=== PATIENT | female | born 1970 | race Caucasian/White ===

== ENCOUNTER 2016-09-14 17:03 | Inpatient (IN) | payer MEDICARE, MEDICAID ==
[~2016-09-14] VITALS: Ht 175.3 cm; Wt 81.2 kg
[~2016-09-14 17:03] MED LIST: ACET-2267 PO; ACET-819 PO; ACET1000 IR; ACHD5005 PO; AMIT10TA6; AMIT10TA6 PO; AMIT25TA9; AMIT50TA3 PO; AMLO5TAB2 PO; AMOX-358 PO; ASCO500T20 PO; BACL10TA; BACL10TA PO; BACL20TA PO; CLOT45CR46 TOP; CLTR1C90 TP; FLUC100T6 PO; FOAM DRESSING TOP; HYDR-1231 PO; HYDR-3714 PO; HYDR-3730 PO; MAGN400O7 PO; MEDR150D4 IM; MENT3.5O TP; MENT71OI TP; METO-272 PO; METO-333 PO; METO25TA PO; METO25TA2 PO; MNTL10T; MNTL10T PO; MONT10TA24 PO; MTP50T PO; MULT-974 PO; NITR-33 PO; NYST30PO9 TOP; OMEG1CAP51 PO; ONDA4TAB11 PO; PANT40TA2 PO; PANT40TA3 PO; POLY17PO23 GT; POLY17PO6 PO; RANI25TA PO; RANI75TA30 PO; RT-ALBUINH INH; SENN1TAB6 PO; SULF1TAB35 PO; SULF1TAB7 PO; VENL150C PO; VENL150C98 PO; VITAMIN C PO; [UNRECOGNIZED DRUG - SUPPLY] TOP
--- NOTE | 2016-09-14 17:19 | ED General ---
General Stated Complaint: FEVER Source of Information: Patient, EMS Exam Limitations: No Limitations History of Present Illness Time Seen by Provider: 17:10 Initial Comments 1 week progressive worsening of tiredness and malaise on top of a history of MS. The patient says she was so weak she couldn't name lift her hand with food her mouth. EMS brought her in she has a caregiver who lives with her as well as home health set up her meds and cares for her wounds on her sacrum. She has a suprapubic catheter that has been putting out as brown drainage. Febrile 103.3 on arrival. She denies cough, nausea, vomiting, pain, diarrhea. She has a colostomy placed about 6 years ago that she states she doesn't remember last time the bag was replaced and hasn't been putting much out. The patient remarks she still has a period but is unaware of when her last period is. Rest of history by EMS no family accompanied her. Allergies and Home Medications Allergies Coded Allergies: interferon beta (Verified Allergy, Unknown, 07/25/08) naproxen (Verified Allergy, Unknown, 07/25/08) Home Medications Acetic Acid 1,000 Ml Irrig.soln, 0 ML IR BID PRN for IRRIGATION, #30 Prescribed by: KEVIN MORE on 11/14/15 1534 Amitriptyline HCl 50 Mg Tablet, 50 MG PO HS, (Reported) Baclofen 20 Mg Tablet, 20 MG PO QID, (Reported) Fluconazole 100 Mg Tablet, 100 MG PO DAILY for 7 Days Prescribed by: EMELI CORLEY on 11/14/15 0743 Metoprolol Tartrate 25 Mg Tablet, 50 MG PO DAILY, (Reported) TAKES 2 (25MG) TABLETS Montelukast Sodium 10 Mg Tablet, 10 MG PO DAILY, (Reported) Nystatin 60 Gm Powder, TOP BID, (Reported) Pantoprazole Sodium 40 Mg Tablet.dr, 40 MG PO DAILY, (Reported) Sennosides/Docusate Sodium 1 Each Tablet, 1 TAB PO DAILY PRN for CONSTIPATION, ( Reported) Sulfamethoxazole/Trimethoprim 1 Each Tablet, 1 EACH PO BID, #14 Prescribed by: EMELI CORLEY on 11/14/15 0743 Venlafaxine HCl 150 Mg Cap.er.24h, 150 MG PO DAILY, (Reported) Constitutional: see HPI, No chills, No fever, malaise, weakness EENTM: No ear discharge, No ear pain, No eye pain, No hoarseness, No mouth pain , No mouth swelling, No nose congestion, No nose pain, No throat pain Respiratory: No cough, No phlegm, No short of breath, No wheezing Cardiovascular: No chest pain, No edema, No syncope Gastrointestinal: No abdominal pain, constipation, No diarrhea, loss of appetite, No nausea, No vomiting Genitourinary: No dysuria (Suprapubic catheter with brown sludge in the catheter line) : No Musculoskeletal: No joint swelling Psychiatric/Neurological: Denies Anxiety, Denies Depressed, Denies Headache Past [id number] Hx Immunizations Up To Date Tetanus Booster (TDap): Less than 5yrs Date of Pneumonia Vaccine: Jun 08, 2015 Date of Influenza Vaccine: Mar 08, 2013 Surgeries HX Surgeries: Yes (teeth, suprapubic cath, COLOSTOMY) Respiratory Hx Respiratory Disorders: Yes Respiratory Disorders: Asthma Cardiovascular Hx Cardiac Disorders: Yes Cardiac Disorders: Hypertension Neurological Hx Neurological Disorders: Yes (secondary progressive) Neurological Disorders: Multiple Sclerosis Reproductive System Hx Reproductive Disorders: No Sexually Transmitted Disease: No HIV/AIDS: No Female Reproductive Disorders: Denies Genitourinary Hx Genitourinary Disorders: Yes (suprapubic cathether) Genitourinary Disorders: Bladder Infection Gastrointestinal Hx Gastrointestinal Disorders: Yes (COLOSTOMY) Musculoskeletal Hx Musculoskeletal Disorders: Yes (DECREASED MOVEMENT DUE TO MS) Endocrine Hx Endocrine Disorders: No HEENT HX ENT Disorders: Yes (GLASSES) Hearing Impairment: Denies Cancer Hx Cancer: No Psychosocial Hx Psychiatric Problems: Yes Behavioral Health Disorders: Depression Integumentary HX Skin/Integumentary Disorder: No Blood Transfusions Hx Blood Disorders: No Adverse Reaction to a Blood Tr: No Family Medical History Significant Family History: Cancer Family Medial History: Cancer 03 MOTHER (breast ca) (breast--grandma of breast cancer) Physical Exam-Suspected Sepsis Physical Exam Vital Signs Vital Sign - Last 12Hours 09/14/16 17:08 Temp 103.3 Pulse 125 Resp 20 B/P (MAP) 143/87 Pulse Ox 95 O2 Delivery Room Air Capillary Refill : General Appearance: Moderate Distress, Obese (estimating 100-120Kg) Eyes: Bilateral Eye EOMI, Bilateral Eye Normal Inspection, Bilateral Eye PERRL HEENT: PERRL/EOMI, TMs Normal, Normal ENT Inspection, Pharynx Normal Neck: Full Range of Motion, Normal Inspection, Non Tender, Supple Respiratory: Chest Non Tender, Lungs Clear, Normal Breath Sounds, No Accessory Muscle Use, No Respiratory Distress Cardiovascular: Regular Rate, Rhythm, No Edema, No JVD, Normal Peripheral Pulses Gastrointestinal: Non Tender, Soft, Abnormal Bowel Sounds (hypoactive), Distended, Other (ostomy stoma is retracted with a clean dry colostomy bag in place without dating) Back: No Vertebral Tenderness, Other (large tunneling unstageable ulcer over sacrum with ABD pad and yellow green purulence. ) Extremity: Normal Capillary Refill, Non Tender, No Calf Tenderness, No Pedal Edema Neurologic/Psychiatric: Alert, Oriented x3, No Motor/Sensory Deficits Skin: normal color, warm/dry, ulcerations (Sacral) Lymphatic: No Adenopathy Focused Exam Lactic Acid Level Laboratory Tests Test 09/14/16 17:10 09/14/16 19:11 Lactic Acid Level 2.68 MMOL/L (0.50-2.00) *H Progress/Results/Core Measures Suspected Sepsis Infection Criteria Present: Suspected New Infection New/Unexplained Altered Menta: Yes Sepsis Diagnosis: (1) Urinary tract infection Qualifiers: Qualified Codes: T83.510A - Infection and inflammatory reaction due to cystostomy catheter, initial encounter; N39.0 - Urinary tract infection, site not specified SIRS Temperature: Pulse: Respiratory Rate: Laboratory Tests 09/14/16 17:10: White Blood Count 18.8H Blood Pressure / Mean: Laboratory Tests 09/14/16 17:10: Creatinine 0.69, INR Comment 1.0, Platelet Count 388, Total Bilirubin 0.5 Results/Orders Lab Results Laboratory Tests Test 09/14/16 17:10 09/14/16 17:36 09/14/16 19:11 Range/Units White Blood Count 18.8 H 4.3-11.0 10^3/uL Red Blood Count 4.66 4.35-5.85 10^6/uL Hemoglobin 11.2 L 11.5-16.0 G/DL Hematocrit 36 35-52 % Mean Corpuscular Volume 77 L 80-99 FL Mean Corpuscular Hemoglobin 24 L 25-34 PG Mean Corpuscular Hemoglobin Concent 31 L 32-36 G/DL Red Cell Distribution Width 17.7 H 10.0-14.5 % Platelet Count 388 130-400 10^3/uL Mean Platelet Volume 9.7 7.4-10.4 FL Neutrophils (%) (Auto) 94 H 42-75 % Lymphocytes (%) (Auto) 4 L 12-44 % Monocytes (%) (Auto) 3 0-12 % Eosinophils (%) (Auto) 0 0-10 % Basophils (%) (Auto) 0 0-10 % Neutrophils # (Auto) 17.6 H 1.8-7.8 X 10^3 Lymphocytes # (Auto) 0.7 L 1.0-4.0 X 10^3 Monocytes # (Auto) 0.5 0.0-1.0 X 10^3 Eosinophils # (Auto) 0.1 0.0-0.3 10^3/uL Basophils # (Auto) 0.0 0.0-0.1 10^3/uL Neutrophils % (Manual) 86 % Lymphocytes % (Manual) 7 % Monocytes % (Manual) 1 % Eosinophils % (Manual) 1 % Basophils % (Manual) 1 % Band Neutrophils 4 % Anisocytosis SLIGHT Prothrombin Time 13.2 12.2-14.7 SEC INR Comment 1.0 0.8-1.4 Activated Partial Thromboplast Time 26 24-35 SEC Sodium Level 136 135-145 MMOL/L Potassium Level 4.3 3.6-5.0 MMOL/L Chloride Level 105 98-107 MMOL/L Carbon Dioxide Level 18 L 21-32 MMOL/L Anion Gap 13 5-14 MMOL/L Blood Urea Nitrogen 14 7-18 MG/DL Creatinine 0.69 0.60-1.30 MG/DL Estimat Glomerular Filtration Rate > 60 BUN/Creatinine Ratio 20 Glucose Level 114 H 70-105 MG/DL Lactic Acid Level 2.68 *H 0.50-2.00 MMOL/L Calcium Level 8.7 8.5-10.1 MG/DL Total Bilirubin 0.5 0.1-1.0 MG/DL Aspartate Amino Transf (AST/SGOT) 13 5-34 U/L Alanine Aminotransferase (ALT/SGPT) 10 0-55 U/L Alkaline Phosphatase 89 40-136 U/L Total Protein 7.1 6.4-8.2 G/DL Albumin 3.7 3.2-4.5 G/DL Urine Color YELLOW Urine Clarity SLIGHTLY CLOUDY Urine pH 8 5-9 Urine Specific Reading 1.015 L 1.016-1.022 Urine Protein 2+ H NEGATIVE Urine Glucose (UA) NEGATIVE NEGATIVE Urine Ketones 1+ H NEGATIVE Urine Nitrite POSITIVE H NEGATIVE Urine Bilirubin NEGATIVE NEGATIVE Urine Urobilinogen NORMAL NORMAL MG/DL Urine Leukocyte Esterase 3+ H NEGATIVE Urine RBC (Auto) 4+ H NEGATIVE Urine RBC 5-10 H /HPF Urine WBC 25-50 H /HPF Urine Crystals NONE /LPF Urine Bacteria LARGE H /HPF Urine Casts NONE /LPF Urine Mucus NEGATIVE /LPF Urine Culture Indicated YES Micro Results Microbiology 09/14/16 Influenza Types A,B Antigen (RENEA) - Final, Complete My Orders Orders - DIANE RAMIREZ Cbc With Automated Diff (09/14/16 17:20) Comprehensive Metabolic Panel (09/14/16 17:20) Lactic Acid Analyzer (09/14/16 17:20) Blood Culture (09/14/16 17:20) Sputum Culture (09/14/16 17:20) Ua Culture If Indicated (09/14/16 17:20) Protime With Inr (09/14/16 17:20) Partial Thromboplastin Time (09/14/16 17:20) Chest 1 View, Ap/Pa Only (09/14/16 17:20) O2 (09/14/16 17:20) Saline Lock/Iv-Start (09/14/16 17:20) Saline Lock/Iv-Start (09/14/16 17:20) Ns Iv 1000 Ml (Sodium Chloride 0.9%) (09/14/16 17:30) Piperacillin Sodium/Tazobactam (Zosyn Vi (09/14/16 17:30) Vital Signs Adult Sepsis Patie Q1HR (09/14/16 17:20) Vancomycin Injection (Vancomycin Injecti (09/14/16 17:30) Remove Rings In Anticipation O (09/14/16 17:20) Influenza A And B Antigens (09/14/16 17:20) Manual Differential (09/14/16 17:10) Ct Abdomen/Pelvis W (09/14/16 17:58) Urine Culture (09/14/16 17:36) Iohexol Injection (Omnipaque 350 Mg/Ml 1 (09/14/16 18:15) Ns (Ivpb) (Sodium Chloride 0.9% Ivpb Bag (09/14/16 18:15) Medications Given in ED Current Medications Medications Dose Ordered Sig/Matthew Route Start Time Stop Time Status Last Admin Dose Admin Iohexol 100 ml ONCE ONCE IV 09/14/16 18:15 09/14/16 18:16 DC 09/14/16 18:35 100 ML Piperacillin Sod/ Tazobactam Sod 4.5 gm/Sodium Chloride 100 ml @ 200 mls/hr ONCE ONCE IV 09/14/16 17:30 09/14/16 17:59 DC 09/14/16 17:52 200 MLS/HR Sodium Chloride 100 ml ONCE ONCE IV 09/14/16 18:15 09/14/16 18:16 DC 09/14/16 18:35 80 ML Sodium Chloride 2,500 ml @ 1,250 mls/hr PRN PRN IV 09/14/16 17:30 09/14/16 17:51 1,250 MLS/HR Vancomycin HCl 1000 mg/Sodium Chloride 250 ml @ 250 mls/hr ONCE ONCE IV 09/14/16 17:30 09/14/16 18:29 DC 09/14/16 17:52 250 MLS/HR Vital Signs/I&O Vital Sign - Last 12Hours 09/14/16 09/14/16 09/14/16 17:08 17:30 18:01 Temp 103.3 Pulse 125 120 Resp 20 20 B/P (MAP) 143/87 135/99 Pulse Ox 95 95 98 O2 Delivery Room Air Room Air Room Air Capillary Refill : Progress Note : Time: 17:55 Progress Note Patient is acutely ill and in sepsis with normal blood pressure at this time. Severe sepsis with lactate 2.68. We'll give fluids, IV antibiotics, cultures of urine and blood obtained. Appropriate x-rays and get a CT scan as I'm concerned with the retracted ostomy and clean colostomy bag that she does not know when was replaced last she may have a functional bowel obstruction. Diagnostic Imaging Diagonstic Imaging: Xray Plain Films/CT/US/NM/MRI: chest Comments Poor inspiratory effort but no acute cardiopulmonary processes are noted. No osseous abnormalities. She is compared to the 2015 chest x-ray 1 view stable without new changes. Reviewed: Reviewed by Me Diagonstic Imaging: CT Plain Films/CT/US/NM/MRI: abdomen Comments [place] [place] NAME: MODE [facility] REC#: [id number] PT STATUS: REG ER : 1970 PHYSICIAN: DIANE RAMIREZ MD ADMIT DATE: 09/14/16/ER Draft Date of Exam:09/14/16 CT ABDOMEN/PELVIS W INDICATION: Sepsis and fever CT of the abdomen and pelvis obtained with IV contrast bolus and compared to 09/19/15. Visualized portions of the lung bases show some mild dependent atelectatic changes. There is no pleural fluid. There is no free intraperitoneal air. The liver shows no focal lesion. Gallbladder is unremarkable. The spleen is not enlarged and showed no focal lesion. The adrenals and pancreas and kidneys appear normal. There is no retroperitoneal mass or adenopathy. There is no ascites. Visualized bowel loops show no overt obstruction or bowel wall thickening. There is moderate stool in the colon. There are diffuse atrophic changes of the abdominal and pelvic musculature. There is left lower quadrant ostomy with small parastomal hernia without obstruction. There is a suprapubic catheter in place. IMPRESSION: Chronic findings as above with no overt inflammatory process or abnormal fluid collection or bowel obstruction. There is moderate stool in the colon. Dictated on workstation # [id number] Dict: 09/14/16 1850 Trans: 09/14/16 1909 MARI [id number] Interpreted by: BILLY MARTINEZ MD Electronically signed by: Reviewed: Reviewed by Me Departure Communication Time/Spoke to Admitting Phy: 19:25 Communication Discussed this fierce septic patient with normal blood pressure, fever and likely urosepsis yet has a large unexplored tunneling wound on the sacrum as well as the retracted ostomy that was not remarkable on the CT scan. Dr. Bruce Simon agreed for inpatient placement on the floor as the patient was stable status post fluids and antibiotics. We'll get another lactate continue antibiotics and fluids and allow her to eat as well as check labs in the morning. She has pain and nausea meds when necessary. Impression Impression: Primary Impression: Severe sepsis Additional Impressions: UTI (urinary tract infection) due to urinary indwelling catheter Qualified Codes: T83.510A - Infection and inflammatory reaction due to cystostomy catheter, initial encounter; N39.0 - Urinary tract infection, site not specified Sacral wound Qualified Codes: S31.000A - Unspecified open wound of lower back and pelvis without penetration into retroperitoneum, initial encounter Disposition: ADMITTED INPATIENT Condition: Stable Decision to Admit Reason: Admit from ER (General) Decision to Admit/Date: Sep 14, 2016 Time/Decision to Admit Time: 19:25 Departure-Patient Inst. Referrals: EMELI CORLEY DO (PCP/Family) Primary Care Physician Copy Copies To 1: EMELI CORLEY TITUS J Sep 14, 2016 17:19
[2016-09-14 17:29] LABS: BASOPHILS % (AUTO) 0 % (0-10); EOSINOPHILS # (AUTO) 0.1 10^3/uL (0.0-0.3); EOSINOPHILS % (AUTO) 0 % (0-10); LYMPHOCYTES # (AUTO) 0.7 X 10^3 (1.0-4.0); LYMPHOCYTES % (AUTO) 4 % (12-44); MEAN CORPUSCULAR HEMOGLOBIN 24 PG (25-34); MEAN CORPUSCULAR HGB CONC 31 G/DL (32-36); MEAN CORPUSCULAR VOLUME 77 FL (80-99); MEAN PLATELET VOLUME 9.7 FL (7.4-10.4); MONOCYTES # (AUTO) 0.5 X 10^3 (0.0-1.0); MONOCYTES % (AUTO) 3 % (0-12); NEUTROPHILS # (AUTO) 17.6 X 10^3 (1.8-7.8); NEUTROPHILS % (AUTO) 94 % (42-75); PLATELET COUNT 388 10^3/uL (130-400); RED BLOOD COUNT 4.66 10^6/uL (4.35-5.85); RED CELL DISTRIBUTION WIDTH 17.7 % (10.0-14.5); WHITE BLOOD COUNT 18.8 10^3/uL (4.3-11.0)
[2016-09-14] MEDS ORDERED: PIPERACILLIN SODIUM/TAZOBACTAM 4.5 GM in NS (IVPB) 100 ML IV ONE (17:30)
[2016-09-14] MEDS ORDERED: NS IV 1000 ML 2,500 ML IV PRN (17:30)
[2016-09-14] MEDS ORDERED: VANCOMYCIN INJECTION 1,000 MG in NS (IVPB) 250 ML IV ONE (17:30)
[2016-09-14 17:32] LABS: PROTHROMBIN TIME PATIENT 13.2 SEC (12.2-14.7)
[2016-09-14 17:41] LABS: ANISOCYTOSIS SLIGHT; BAND NEUTROPHILS 4 %; BASOPHILS % (MANUAL) 1 %; EOSINOPHILS % (MANUAL) 1 %; LYMPHOCYTES % (MANUAL) 7 %; NEUTROPHILS % (MANUAL) 86 %
[2016-09-14 17:43] LABS: ALANINE AMINOTRANSFERASE 10 U/L (0-55); ALBUMIN 3.7 G/DL (3.2-4.5); ANION GAP 13 MMOL/L (5-14); ASPARTATE AMINO TRANSFERASE 13 U/L (5-34); BILIRUBIN,TOTAL 0.5 MG/DL (0.1-1.0); BLOOD UREA NITROGEN 14 MG/DL (7-18); BUN/CREATININE RATIO 20; CALCIUM 8.7 MG/DL (8.5-10.1); CARBON DIOXIDE 18 MMOL/L (21-32); CHLORIDE 105 MMOL/L (98-107); CREATININE SERUM 0.69 MG/DL (0.60-1.30); GFR ESTIMATED > 60; GLUCOSE 114 MG/DL (70-105); POTASSIUM 4.3 MMOL/L (3.6-5.0); SODIUM 136 MMOL/L (135-145); TOTAL PROTEIN 7.1 G/DL (6.4-8.2)
[2016-09-14 17:44] LABS: BILIRUBIN,URINE NEGATIVE (NEGATIVE); KETONES,URINE 1+ (NEGATIVE); LEUKOCYTE ESTERASE ,URINE 3+ (NEGATIVE); NITRITE,URINE POSITIVE (NEGATIVE); PH,URINE 8 (5-9); PROTEIN,URINE 2+ (NEGATIVE); UROBILINOGEN,URINE NORMAL (NORMAL)
[2016-09-14 17:55] LABS: WBC,URINE 25-50 /HPF
[2016-09-14 18:01] VITALS: BP 135/99
--- NOTE | 2016-09-14 18:13 | Diagnostic Imaging Report ---
INDICATION: Fever and sepsis. EXAM: Frontal chest obtained at 5:50 hours p.m. EXAM: The heart is normal in size. The aorta is tortuous. The lungs are clear. There is no pneumothorax or pleural fluid. IMPRESSION: Tortuous and/or ectatic aorta. Poor inspiration but no focal infiltrate or pleural fluid. Dictated by: Dictated on workstation # [id number]
[2016-09-14] MEDS ORDERED: IOHEXOL 350 MG/ML 100 ML (OMNIPAQUE 350) VIAL IV ONE (18:15)
[2016-09-14] MEDS ORDERED: NS 100 ML (IVPB) BAG IV ONE (18:15)
--- NOTE | 2016-09-14 19:09 | Diagnostic Imaging Report ---
INDICATION: Sepsis and fever CT of the abdomen and pelvis obtained with IV contrast bolus and compared to 09/19/15. Visualized portions of the lung bases show some mild dependent atelectatic changes. There is no pleural fluid. There is no free intraperitoneal air. The liver shows no focal lesion. Gallbladder is unremarkable. The spleen is not enlarged and showed no focal lesion. The adrenals and pancreas and kidneys appear normal. There is no retroperitoneal mass or adenopathy. There is no ascites. Visualized bowel loops show no overt obstruction or bowel wall thickening. There is moderate stool in the colon. There are diffuse atrophic changes of the abdominal and pelvic musculature. There is left lower quadrant ostomy with small parastomal hernia without obstruction. There is a suprapubic catheter in place. IMPRESSION: Chronic findings as above with no overt inflammatory process or abnormal fluid collection or bowel obstruction. There is moderate stool in the colon. Dictated by: Dictated on workstation # [id number]
[2016-09-14] MEDS ORDERED: NS IV 1000 ML 1,000 ML IV ONE (19:41)
[2016-09-14 20:30] VITALS: BP 119/60
[2016-09-14] MEDS ORDERED: ACETAMINOPHEN 325 MG TABLET/CAPLET (TYLENOL) ONE (20:32)
[2016-09-14] MEDS: ACETAMINOPHEN 325 MG TABLET/CAPLET (TYLENOL) PO PRN (20:41)
[2016-09-14] MEDS ORDERED: VANCOMYCIN 1 GM/NS 250 ML IVPB IV ONE ×2 (21:00)
[2016-09-14] MEDS ORDERED: fentaNYL INJECTION 100 MCG/2 ML AMP IV PRN (21:00)
[2016-09-14] MEDS ORDERED: ONDANSETRON 4 MG/2 ML (SDV) Z0FRAN IV PRN (21:00)
[2016-09-14] MEDS: NS IV 1000 ML 1,000 ML IV SCH (21:28)
--- NOTE | 2016-09-14 21:34 | History & Physical ---
History of Present Illness History of Present Illness Reason for visit/HPI 45 yo F admitted for severe sepsis secondary to UTI with indwelling suprapubic catheter- Pt has history of paraplegia from multiple sclerosis, colostomy and sacral ulcer that is over 1 year old. She was admitted last November 2015 for MRSA UTI, candidal infection. Patient reports yesterday she started not feeling very well. She reports she was unable to grab her cup to take a drink of water so all she could do was there and looked at it. She had upper extremity weakness preventing her from moving her arms. She does have home health that comes in and takes care of her colostomy bag as well as her sacral ulcer. Patient was brought to via [facility], [place] for further evaluation. Her home health nurse noted she had a fever today and requested further evaluation. In the emergency department patient's lactic acid was greater than 2 she was bolused IV fluids and started on antibiotics with vancomycin and Zosyn. Lactic acid was checked 2 hours later that was noted to be 3. She was bolused again with IV fluids will continue running IV fluids and 100 ml/hour; encourage by mouth hydration. After IV fluids patient reports she feels a little bit better , strength has increased a little bit. patient is bedbound as noted above due to paraplegia. Patient was transferred to the fourth floor for further evaluation and treatment. Date of Admission Sep 14, 2016 at 19:35 I consulted on this patient on 09/14/16 21:27 Attending Physician Bruce Gomez MD Admitting Physician Emeli Corley DO Consult Dr. Milian Allergies and Home Medications Allergies Coded Allergies: interferon beta (Verified Allergy, Unknown, 07/25/08) naproxen (Verified Allergy, Unknown, 07/25/08) Home Medications Acetic Acid 1,000 Ml Irrig.soln, 0 ML IR BID PRN for IRRIGATION, #30 Prescribed by: KEVIN MORE on 11/14/15 1534 Amitriptyline HCl 50 Mg Tablet, 50 MG PO HS, (Reported) Baclofen 20 Mg Tablet, 20 MG PO QID, (Reported) Fluconazole 100 Mg Tablet, 100 MG PO DAILY for 7 Days Prescribed by: EMELI CORLEY on 11/14/15 0753 Metoprolol Tartrate 25 Mg Tablet, 50 MG PO DAILY, (Reported) TAKES 2 (25MG) TABLETS Montelukast Sodium 10 Mg Tablet, 10 MG PO DAILY, (Reported) Nystatin 60 Gm Powder, TOP BID, (Reported) Pantoprazole Sodium 40 Mg Tablet.dr, 40 MG PO DAILY, (Reported) Sennosides/Docusate Sodium 1 Each Tablet, 1 TAB PO DAILY PRN for CONSTIPATION, ( Reported) Sulfamethoxazole/Trimethoprim 1 Each Tablet, 1 EACH PO BID, #14 Prescribed by: EMELI CORLYE on 11/14/15 0743 Venlafaxine HCl 150 Mg Cap.er.24h, 150 MG PO DAILY, (Reported) Past [id number] Hx Patient Social History Alcohol Use: Occasionally Uses Recreational Drug Use: No Smoking Status: Former Smoker Type Used: Cigarettes 2nd Hand Smoke Exposure: Yes Recent Foreign Travel: No Contact w/other who traveled: No Recent Hopitalizations: Yes Recent Infectious Disease Expo: No Immunizations Up To Date Tetanus Booster (TDap): Less than 5yrs Date of Pneumonia Vaccine: Jun 08, 2015 Date of Influenza Vaccine: Mar 08, 2013 Surgeries HX Surgeries: Yes (teeth, suprapubic cath, COLOSTOMY) Respiratory Hx Respiratory Disorders: Yes Cardiovascular Hx Cardiovascular Disorders: Yes Cardiac Disorders: Hypertension Neurological Hx Neurological Disorders: Yes (secondary progressive) Neurological Disorders: Multiple Sclerosis Reproductive System Hx Reproductive Disorders: No Sexually Transmitted Disease: No HIV/AIDS: No Female Reproductive Disorders: Denies Genitourinary Hx Genitourinary Disorders: Yes (suprapubic cathether) Genitourinary Disorders: Bladder Infection Gastrointestinal Hx Gastrointestinal Disorders: Yes (COLOSTOMY) Musculoskeletal Hx Musculoskeletal Disorders: Yes (DECREASED MOVEMENT DUE TO MS) Endocrine Hx Endocrine Disorders: No HEENT HX ENT Disorders: Yes (GLASSES) Hearing Impairment: Denies Cancer Hx Cancer: No Psychosocial Hx Psychiatric Problems: Yes Behavioral Health Disorders: Depression Integumentary HX Skin/Integumentary Disorder: No Blood Transfusions Hx Blood Disorders: No Adverse Reaction to a Blood Tr: No Family Medical History Significant Family History: Cancer Family Hx: Cancer 03 MOTHER (breast ca) (breast--grandma of breast cancer) Review of Systems Review of Systems General: No Chills, No Night Sweats, Fatigue, Malaise HEENT: No Head Aches, No Visual Changes, No Eye Pain Pulmonary: No Dyspnea, No Cough Cardiovascular: No: Chest Pain, Orthopnea, Palpitations Gastrointestinal: Abdominal Pain, No: Nausea, Vomiting Genitourinary: No Dysuria, No Frequency Musculoskeletal: No: arm pain, back pain, foot pain, hand pain, leg pain, neck pain, shoulder pain Neurological: Weakness, No: Confusion, Seizures Physical Exam Vital Signs Vital Sign - Last 12Hours 09/14/16 17:08 Temp 103.3 Pulse 125 Resp 20 B/P (MAP) 143/87 Pulse Ox 95 O2 Delivery Room Air Capillary Refill : Less Than 3 Seconds General Appearance: No Apparent Distress, WD/WN Eyes: Bilateral Eye Normal Inspection HEENT: PERRL/EOMI Neck: Non Tender, Supple Respiratory: Chest Non Tender, Lungs Clear, Normal Breath Sounds, No Accessory Muscle Use, No Respiratory Distress Cardiovascular: Regular Rate, Rhythm, Tachycardia Gastrointestinal: Normal Bowel Sounds, Non Tender, Soft, Other (colostomy bag in place) Rectal: Deferred Back: No Vertebral Tenderness Extremity: Non Tender, Pedal Edema (trace), Other (unable to move her legs- a little bit of toe wiggling) Neurologic/Psychiatric: Alert, Oriented x3, Normal Mood/Affect Skin: Warm/Dry, Other (sacral ulcer) Assessment/Plan Assessment/Plan Assessment/Plan 45 yo F admitted 09/14/16 Severe sepsis due to indwelling suprapubic catheter- -h/o MRSA UTI November 2015- -continue vancomycin, zosyn -urine culture pending, blood culture sacral decubitus ulcer- it was stage 10 November 2015- home health has been caring for it- She saw Dr. Milian November 2015- Wound care consult placed paraplegia from Multiple Sclerosis- poses a problem for decubitus ulcers. obesity- encourage healthy diet. h/o asthma- on room air, stable htn- monitor blood pressure- will not treat agressively at this time due to above sepsis depression- monitor mood DVT ppx- scds, lovenox Dispo: rechecking lactic acid at 2230, continue IVF- monitor BMP- as kidneys will be taxed with CT w/ contrast, vancomycin, sepsis, lovenox. Dr. Corley to resume care in AM. Problems: (1) Urinary tract infection Qualifiers: Qualified Codes: T83.510A - Infection and inflammatory reaction due to cystostomy catheter, initial encounter; N39.0 - Urinary tract infection, site not specified BRUCE GOMEZ MD Sep 14, 2016 21:34
[2016-09-14 23:32] VITALS: BP 122/72
[2016-09-14] MEDS: ENOXAPARIN 40 MG/0.4 ML (LOVENOX) SYR SC SCH (23:39)
[2016-09-15] MEDS: PIPERACILLIN/TAZOBACTAM 4.5 GM/NS100 ML IVPB IV SCH ×6 (03:18→17:46)
[2016-09-15 03:21] VITALS: BP 96/53
[2016-09-15 05:34] LABS: BASOPHILS % (AUTO) 0 % (0-10); EOSINOPHILS % (AUTO) 0 % (0-10); LYMPHOCYTES # (AUTO) 0.9 X 10^3 (1.0-4.0); LYMPHOCYTES % (AUTO) 7 % (12-44); MEAN CORPUSCULAR HEMOGLOBIN 24 PG (25-34); MEAN CORPUSCULAR HGB CONC 32 G/DL (32-36); MEAN CORPUSCULAR VOLUME 77 FL (80-99); MEAN PLATELET VOLUME 9.7 FL (7.4-10.4); MONOCYTES # (AUTO) 0.2 X 10^3 (0.0-1.0); MONOCYTES % (AUTO) 2 % (0-12); NEUTROPHILS # (AUTO) 12.5 X 10^3 (1.8-7.8); NEUTROPHILS % (AUTO) 91 % (42-75); PLATELET COUNT 324 10^3/uL (130-400); RED BLOOD COUNT 3.79 10^6/uL (4.35-5.85); RED CELL DISTRIBUTION WIDTH 17.7 % (10.0-14.5); WHITE BLOOD COUNT 13.7 10^3/uL (4.3-11.0)
[2016-09-15 05:57] LABS: ALANINE AMINOTRANSFERASE 10 U/L (0-55); ALBUMIN 2.8 G/DL (3.2-4.5); ANION GAP 8 MMOL/L (5-14); ASPARTATE AMINO TRANSFERASE 15 U/L (5-34); BILIRUBIN,TOTAL 0.7 MG/DL (0.1-1.0); BLOOD UREA NITROGEN 10 MG/DL (7-18); BUN/CREATININE RATIO 17; CALCIUM 7.7 MG/DL (8.5-10.1); CARBON DIOXIDE 20 MMOL/L (21-32); CHLORIDE 109 MMOL/L (98-107); CREATININE SERUM 0.58 MG/DL (0.60-1.30); GFR ESTIMATED > 60; GLUCOSE 112 MG/DL (70-105); POTASSIUM 3.3 MMOL/L (3.6-5.0); SODIUM 137 MMOL/L (135-145); TOTAL PROTEIN 5.4 G/DL (6.4-8.2)
[2016-09-15 07:37] VITALS: BP 95/61
[2016-09-15] MEDS ORDERED: ACETIC ACID 0.25% IR PRN (08:15)
[2016-09-15] MEDS ORDERED: ENOXAPARIN 40 MG/0.4 ML (LOVENOX) SYR SC SCH ×2 (08:15)
--- NOTE | 2016-09-15 08:16 | Progress Note (SOAP) ---
Subjective Subjective/Events-last exam patient feels 40 percent better today. Patient feels stronger. Sepsis. infection. Suprapubic. Sacral ulcer. White blood cell count from 18,800-13,700. Potassium 3.3. Urine culture preliminary enterococcus and gram-negative alexander. Patient afebrile today Objective Exam Vital Signs Date Time Temp Pulse Resp B/P (MAP) Pulse Ox O2 Delivery O2 Flow Rate FiO2 09/15/16 07:37 97.8 102 18 95/61 96 Room Air 09/15/16 03:21 99.2 119 20 96/53 95 Room Air 09/14/16 23:32 99.7 130 24 122/72 94 Room Air 09/14/16 21:40 99.7 09/14/16 21:00 Room Air 09/14/16 20:41 101.5 09/14/16 20:30 101.5 122 24 119/60 99 Room Air 09/14/16 20:10 101.7 122 18 98 09/14/16 18:01 120 20 135/99 98 Room Air 09/14/16 17:30 95 Room Air 09/14/16 17:08 103.3 125 20 143/87 95 Room Air I & O 09/15/16 07:00 Intake Total 4400 ml Output Total 625 ml Balance 3775 ml Capillary Refill : Less Than 3 Seconds General Appearance: No Apparent Distress, WD/WN HEENT: Normal ENT Inspection Neck: Full Range of Motion, Normal Inspection Respiratory: Chest Non Tender, Lungs Clear, No Accessory Muscle Use, No Respiratory Distress Cardiovascular: Regular Rate, Rhythm, No Murmur Gastrointestinal: non tender, soft, other (suprapubic) Results Lab Laboratory Tests 09/14/16 17:10 09/15/16 05:18 Laboratory Tests 09/14/16 17:10: White Blood Count 18.8H, Red Blood Count 4.66, Hemoglobin 11.2L, Hematocrit 36, Mean Corpuscular Volume 77L, Mean Corpuscular Hemoglobin 24L, Mean Corpuscular Hemoglobin Concent 31L, Red Cell Distribution Width 17.7H, Platelet Count 388, Mean Platelet Volume 9.7, Neutrophils (%) (Auto) 94H, Lymphocytes (%) (Auto) 4L , Monocytes (%) (Auto) 3, Eosinophils (%) (Auto) 0, Basophils (%) (Auto) 0, Neutrophils # (Auto) 17.6H, Lymphocytes # (Auto) 0.7L, Monocytes # (Auto) 0.5, Eosinophils # (Auto) 0.1, Basophils # (Auto) 0.0, Neutrophils % (Manual) 86, Lymphocytes % (Manual) 7, Monocytes % (Manual) 1, Eosinophils % (Manual) 1, Basophils % (Manual) 1, Band Neutrophils 4, Anisocytosis SLIGHT, Prothrombin Time 13.2, INR Comment 1.0, Activated Partial Thromboplast Time 26, Sodium Level 136, Potassium Level 4.3, Chloride Level 105, Carbon Dioxide Level 18L, Anion Gap 13, Blood Urea Nitrogen 14, Creatinine 0.69, Estimat Glomerular Filtration Rate > 60, BUN/Creatinine Ratio 20, Glucose Level 114H, Lactic Acid Level 2.68*H, Calcium Level 8.7, Total Bilirubin 0.5, Aspartate Amino Transf ( AST/SGOT) 13, Alanine Aminotransferase (ALT/SGPT) 10, Alkaline Phosphatase 89, Total Protein 7.1, Albumin 3.7 09/14/16 17:36: Urine Color YELLOW, Urine Clarity SLIGHTLY CLOUDY, Urine pH 8, Urine Specific [place] 1.015L, Urine Protein 2+H, Urine Glucose (UA) NEGATIVE, Urine Ketones 1+ H, Urine Nitrite POSITIVEH, Urine Bilirubin NEGATIVE, Urine Urobilinogen NORMAL , Urine Leukocyte Esterase 3+H, Urine RBC (Auto) 4+H, Urine RBC 5-10H, Urine WBC 25-50H, Urine Crystals NONE, Urine Bacteria LARGEH, Urine Casts NONE, Urine Mucus NEGATIVE, Urine Culture Indicated YES 09/14/16 19:11: Lactic Acid Level 3.14*H 09/14/16 23:25: Lactic Acid Level 2.75*H 09/15/16 01:28: Lactic Acid Level 1.57 09/15/16 05:18: Lactic Acid Level 1.37, White Blood Count 13.7H, Red Blood Count 3.79L, Hemoglobin 9.2L, Hematocrit 29L, Mean Corpuscular Volume 77L, Mean Corpuscular Hemoglobin 24L, Mean Corpuscular Hemoglobin Concent 32, Red Cell Distribution Width 17.7H, Platelet Count 324, Mean Platelet Volume 9.7, Neutrophils (%) (Auto ) 91H, Lymphocytes (%) (Auto) 7L, Monocytes (%) (Auto) 2, Eosinophils (%) (Auto ) 0, Basophils (%) (Auto) 0, Neutrophils # (Auto) 12.5H, Lymphocytes # (Auto) 0.9L, Monocytes # (Auto) 0.2, Eosinophils # (Auto) 0.0, Basophils # (Auto) 0.0, Sodium Level 137, Potassium Level 3.3L, Chloride Level 109H, Carbon Dioxide Level 20L, Anion Gap 8, Blood Urea Nitrogen 10, Creatinine 0.58L, Estimat Glomerular Filtration Rate > 60, BUN/Creatinine Ratio 17, Glucose Level 112H, Calcium Level 7.7L, Total Bilirubin 0.7, Aspartate Amino Transf (AST/SGOT) 15, Alanine Aminotransferase (ALT/SGPT) 10, Alkaline Phosphatase 62, Total Protein 5.4L, Albumin 2.8L Microbiology 09/14/16 Influenza Types A,B Antigen (RENEA) - Final, Complete 09/14/16 Urine Culture - Preliminary, Resulted Probable Enterococcus Species Gram Negative Alexander Assessment/Plan Assessment/Plan Assess & Plan/Chief Complaint sepsis. UTI. Multiple sclerosis. Sacral ulcer. Clinical Quality Measures DVT/VTE Risk/Contraindication: Risk Factor Score Per Nursin RFS Level Per Nursing on Admit: 4+=Very High EMELI CORLEY DO Sep 15, 2016 08:16
[2016-09-15] MEDS: VANCOMYCIN INJECTION 1,250 MG in NS (IVPB) 250 ML IV SCH ×2 (08:51→21:49)
[2016-09-15] MEDS ORDERED: KCL 10 MEQ TAB (MICRO K) PO NR (09:18)
[2016-09-15] MEDS: VENlafaxine XR 75 MG (EFFEXOR XR) CAP PO SCH (09:37)
[2016-09-15] MEDS: meTOprolol TARTRATE 25 MG (LOPRESSOR) TABLET PO SCH (09:37)
[2016-09-15] MEDS: MONTELUKAST 10 MG (SINGULAIR) TAB PO SCH (09:37)
[2016-09-15] MEDS ORDERED: METO50TA2 PO (10:11)
[2016-09-15] MEDS: NS IV 1000 ML 1,000 ML IV SCH ×3 (10:49→20:58)
[2016-09-15] MEDS ORDERED: AQUACEL TOP (10:55)
[2016-09-15 12:00] VITALS: BP 101/68
[2016-09-15] MEDS ORDERED: BACLOFEN 10 MG (LIORESAL) TAB PO SCH (13:00)
[2016-09-15] MEDS: BACLOFEN 10 MG (LIORESAL) TAB PO SCH ×3 (13:12→21:24)
[2016-09-15 16:00] VITALS: BP 115/75
[2016-09-15 20:10] VITALS: BP 110/64
[2016-09-15] MEDS: AMITRIPTYLINE 50 MG (ELAVIL) TAB PO SCH (20:23)
[2016-09-15] MEDS: ENOXAPARIN 40 MG/0.4 ML (LOVENOX) SYR SC SCH (20:23)
[2016-09-15] MEDS ORDERED: VANCOMYCIN 1500 MG/NS 500 ML IVPB IV SCH ×2 (21:00)
[2016-09-15 23:20] VITALS: BP 101/66
--- NOTE | 2016-09-15 23:21 | Wound Care Progress Note ---
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 The patient on multiple occasions declined to allow positioning on either side, due to pain. she has been told that without off-loaking the wound is unlikely to ever heel. At this time the wound is managed by [facility], and the patient desires to continue with that. I will sign off. Objective Exam Last Set of Vital Signs Vital Signs Date Time Temp Pulse Resp B/P (MAP) Pulse Ox O2 Delivery O2 Flow Rate FiO2 09/15/16 20:10 98.8 109 20 110/64 96 Room Air Capillary Refill : Less Than 3 Seconds I&O Bad table Results Lab Laboratory Tests 09/14/16 23:25: Lactic Acid Level 2.75*H 09/15/16 01:28: Lactic Acid Level 1.57 09/15/16 05:18: Lactic Acid Level 1.37, White Blood Count 13.7H, Red Blood Count 3.79L, Hemoglobin 9.2L, Hematocrit 29L, Mean Corpuscular Volume 77L, Mean Corpuscular Hemoglobin 24L, Mean Corpuscular Hemoglobin Concent 32, Red Cell Distribution Width 17.7H, Platelet Count 324, Mean Platelet Volume 9.7, Neutrophils (%) (Auto ) 91H, Lymphocytes (%) (Auto) 7L, Monocytes (%) (Auto) 2, Eosinophils (%) (Auto ) 0, Basophils (%) (Auto) 0, Neutrophils # (Auto) 12.5H, Lymphocytes # (Auto) 0.9L, Monocytes # (Auto) 0.2, Eosinophils # (Auto) 0.0, Basophils # (Auto) 0.0, Sodium Level 137, Potassium Level 3.3L, Chloride Level 109H, Carbon Dioxide Level 20L, Anion Gap 8, Blood Urea Nitrogen 10, Creatinine 0.58L, Estimat Glomerular Filtration Rate > 60, BUN/Creatinine Ratio 17, Glucose Level 112H, Calcium Level 7.7L, Magnesium Level 1.6L, Total Bilirubin 0.7, Aspartate Amino Transf (AST/SGOT) 15, Alanine Aminotransferase (ALT/SGPT) 10, Alkaline Phosphatase 62, Total Protein 5.4L, Albumin 2.8L Microbiology 09/14/16 Blood Culture - Preliminary, Resulted No growth 4/9/17 Influenza Types A,B Antigen (RENEA) - Final, Complete 09/14/16 Urine Culture - Preliminary, Resulted Probable Enterococcus Species Gram Negative Alexander Assessment/Plan Assessment/Plan Assessment/Plan 1. Refractory pressure ulcer of sacrum, unknown depth as no exam was done. Plan: Will sign off. MINESH SANCHEZ MD Sep 15, 2016 23:21
[2016-09-16] MEDS: ACETAMINOPHEN 325 MG TABLET/CAPLET (TYLENOL) PO PRN (00:16)
[2016-09-16] MEDS: PIPERACILLIN/TAZOBACTAM 4.5 GM/NS100 ML IVPB IV SCH ×2 (02:30)
[2016-09-16] MEDS: VENlafaxine XR 75 MG (EFFEXOR XR) CAP PO SCH (06:02)
[2016-09-16 07:19] LABS: BASOPHILS % (AUTO) 0 % (0-10); EOSINOPHILS # (AUTO) 0.3 10^3/uL (0.0-0.3); EOSINOPHILS % (AUTO) 4 % (0-10); LYMPHOCYTES # (AUTO) 1.1 X 10^3 (1.0-4.0); LYMPHOCYTES % (AUTO) 15 % (12-44); MEAN CORPUSCULAR HEMOGLOBIN 24 PG (25-34); MEAN CORPUSCULAR HGB CONC 31 G/DL (32-36); MEAN CORPUSCULAR VOLUME 78 FL (80-99); MEAN PLATELET VOLUME 9.9 FL (7.4-10.4); MONOCYTES # (AUTO) 0.3 X 10^3 (0.0-1.0); MONOCYTES % (AUTO) 5 % (0-12); NEUTROPHILS # (AUTO) 5.3 X 10^3 (1.8-7.8); NEUTROPHILS % (AUTO) 76 % (42-75); PLATELET COUNT 312 10^3/uL (130-400); RED BLOOD COUNT 4.04 10^6/uL (4.35-5.85); RED CELL DISTRIBUTION WIDTH 17.8 % (10.0-14.5)
[2016-09-16 07:32] LABS: BILIRUBIN,URINE NEGATIVE (NEGATIVE); KETONES,URINE NEGATIVE (NEGATIVE); LEUKOCYTE ESTERASE ,URINE 3+ (NEGATIVE); NITRITE,URINE POSITIVE (NEGATIVE); PH,URINE 5 (5-9); PROTEIN,URINE 1+ (NEGATIVE); UROBILINOGEN,URINE NORMAL (NORMAL)
[2016-09-16 07:35] LABS: ANION GAP 9 MMOL/L (5-14); BLOOD UREA NITROGEN 8 MG/DL (7-18); BUN/CREATININE RATIO 14; CALCIUM 7.9 MG/DL (8.5-10.1); CARBON DIOXIDE 17 MMOL/L (21-32); CHLORIDE 113 MMOL/L (98-107); CREATININE SERUM 0.58 MG/DL (0.60-1.30); GFR ESTIMATED > 60; GLUCOSE 107 MG/DL (70-105); POTASSIUM 3.6 MMOL/L (3.6-5.0); SODIUM 139 MMOL/L (135-145)
[2016-09-16 08:00] VITALS: BP 104/71
[2016-09-16] MEDS ORDERED: TROUGH ORDER-PHARMACY XX NR (08:00)
--- NOTE | 2016-09-16 08:29 | Progress Note (SOAP) ---
Subjective Subjective/Events-last exam doing better. Sepsis. Urinary tract infection. Suprapubic. Culture shows 3 organisms. sacral ulcer Objective Exam Vital Signs Date Time Temp Pulse Resp B/P (MAP) Pulse Ox O2 Delivery O2 Flow Rate FiO2 09/16/16 01:10 98.8 09/16/16 00:16 100.0 09/16/16 00:15 100.0 09/15/16 23:20 98.7 109 20 101/66 95 Room Air 09/15/16 20:10 98.8 109 20 110/64 96 Room Air 09/15/16 20:00 Room Air 09/15/16 16:00 99.8 99 18 115/75 98 Room Air 09/15/16 12:00 99.5 90 20 101/68 100 Room Air 09/15/16 09:00 Room Air I & O 09/16/16 07:00 Intake Total 4982.5 ml Output Total 2225 ml Balance 2757.5 ml Capillary Refill : Less Than 3 Seconds General Appearance: No Apparent Distress, WD/WN HEENT: Normal ENT Inspection Neck: Full Range of Motion, Normal Inspection, Non Tender Respiratory: Chest Non Tender, Lungs Clear, Normal Breath Sounds, No Accessory Muscle Use, No Respiratory Distress Cardiovascular: Regular Rate, Rhythm, No Murmur Gastrointestinal: non tender, soft Results Lab Laboratory Tests 09/16/16 07:05 Laboratory Tests 09/16/16 06:45: Urine Color YELLOW, Urine Clarity CLEAR, Urine pH 5, Urine Specific [place] 1.025H, Urine Protein 1+H, Urine Glucose (UA) NEGATIVE, Urine Ketones NEGATIVE, Urine Nitrite POSITIVEH, Urine Bilirubin NEGATIVE, Urine Urobilinogen NORMAL, Urine Leukocyte Esterase 3+H, Urine RBC (Auto) 1+H, Urine RBC 0-2, Urine WBC 10- 25H, Urine Squamous Epithelial Cells 10-25H, Urine Crystals NONE, Urine Bacteria MODERATEH, Urine Casts NONE, Urine Mucus NEGATIVE, Urine Culture Indicated YES 09/16/16 07:05: White Blood Count 7.0, Red Blood Count 4.04L, Hemoglobin 9.7L, Hematocrit 32L, Mean Corpuscular Volume 78L, Mean Corpuscular Hemoglobin 24L, Mean Corpuscular Hemoglobin Concent 31L, Red Cell Distribution Width 17.8H, Platelet Count 312, Mean Platelet Volume 9.9, Neutrophils (%) (Auto) 76H, Lymphocytes (%) (Auto) 15 , Monocytes (%) (Auto) 5, Eosinophils (%) (Auto) 4, Basophils (%) (Auto) 0, Neutrophils # (Auto) 5.3, Lymphocytes # (Auto) 1.1, Monocytes # (Auto) 0.3, Eosinophils # (Auto) 0.3, Basophils # (Auto) 0.0, Sodium Level 139, Potassium Level 3.6, Chloride Level 113H, Carbon Dioxide Level 17L, Anion Gap 9, Blood Urea Nitrogen 8, Creatinine 0.58L, Estimat Glomerular Filtration Rate > 60, BUN/ Creatinine Ratio 14, Glucose Level 107H, Calcium Level 7.9L Microbiology 09/14/16 Blood Culture - Preliminary, Resulted No growth 09/14/16 Influenza Types A,B Antigen (RENEA) - Final, Complete 09/14/16 Urine Culture - Preliminary, Resulted Enterococcus Faecalis Probable Klebsiella/Enterobact Proteus Species Assessment/Plan Assessment/Plan Assess & Plan/Chief Complaint sepsis. UTI. Multiple sclerosis. Sacral ulcer.. . /04/24. Sepsis. UTI. Multiple sclerosis. Sacral decubiti. Patient clinically doing better Clinical Quality Measures DVT/VTE Risk/Contraindication: Risk Factor Score Per Nursin RFS Level Per Nursing on Admit: 4+=Very High EMELI CORLEY DO Sep 16, 2016 08:29
[2016-09-16] MEDS: AMPICILLIN/SULBACTAM INJECTION 3 GM in NS (IVPB) 100 ML IV SCH ×3 (08:51→21:48)
[2016-09-16] MEDS: meTOprolol TARTRATE 25 MG (LOPRESSOR) TABLET PO SCH (08:51)
[2016-09-16] MEDS: BACLOFEN 10 MG (LIORESAL) TAB PO SCH ×4 (08:51→20:09)
[2016-09-16] MEDS: MONTELUKAST 10 MG (SINGULAIR) TAB PO SCH (08:51)
[2016-09-16] MEDS: NS IV 1000 ML 1,000 ML IV SCH (14:11)
[2016-09-16 16:00] VITALS: BP 99/66
[2016-09-16] MEDS: AMITRIPTYLINE 50 MG (ELAVIL) TAB PO SCH (21:47)
[2016-09-16] MEDS: ENOXAPARIN 40 MG/0.4 ML (LOVENOX) SYR SC SCH (21:48)
[2016-09-16] MEDS: SENNA W/DOCUSATE (SENOKOT S) TABLET PO PRN (21:59)
[2016-09-17 00:20] VITALS: BP 103/66
[2016-09-17] MEDS: NS IV 1000 ML 1,000 ML IV SCH (01:49)
[2016-09-17] MEDS: VENlafaxine XR 75 MG (EFFEXOR XR) CAP PO SCH (06:20)
[2016-09-17] MEDS: AMPICILLIN/SULBACTAM INJECTION 3 GM in NS (IVPB) 100 ML IV SCH (06:20)
[2016-09-17 06:45] LABS: BASOPHILS % (AUTO) 0 % (0-10); EOSINOPHILS # (AUTO) 0.3 10^3/uL (0.0-0.3); EOSINOPHILS % (AUTO) 5 % (0-10); LYMPHOCYTES # (AUTO) 1.4 X 10^3 (1.0-4.0); LYMPHOCYTES % (AUTO) 26 % (12-44); MEAN CORPUSCULAR HEMOGLOBIN 23 PG (25-34); MEAN CORPUSCULAR HGB CONC 30 G/DL (32-36); MEAN CORPUSCULAR VOLUME 78 FL (80-99); MONOCYTES # (AUTO) 0.3 X 10^3 (0.0-1.0); MONOCYTES % (AUTO) 6 % (0-12); NEUTROPHILS # (AUTO) 3.4 X 10^3 (1.8-7.8); NEUTROPHILS % (AUTO) 63 % (42-75); PLATELET COUNT 323 10^3/uL (130-400); RED BLOOD COUNT 3.84 10^6/uL (4.35-5.85); RED CELL DISTRIBUTION WIDTH 17.6 % (10.0-14.5); WHITE BLOOD COUNT 5.4 10^3/uL (4.3-11.0)
[2016-09-17 07:11] LABS: ANION GAP 7 MMOL/L (5-14); BLOOD UREA NITROGEN 6 MG/DL (7-18); BUN/CREATININE RATIO 11; CALCIUM 7.8 MG/DL (8.5-10.1); CARBON DIOXIDE 22 MMOL/L (21-32); CHLORIDE 111 MMOL/L (98-107); CREATININE SERUM 0.53 MG/DL (0.60-1.30); GFR ESTIMATED > 60; GLUCOSE 106 MG/DL (70-105); POTASSIUM 3.3 MMOL/L (3.6-5.0); SODIUM 140 MMOL/L (135-145)
[2016-09-17] MEDS ORDERED: KCL 20 MEQ TAB (K-DUR) PO NR (07:45)
--- NOTE | 2016-09-17 07:52 | Progress Note (SOAP) ---
Subjective Subjective/Events-last exam sepsis. Urinary tract infection. Multiple sclerosis. Decubiti sacral region. Patient feeling better today. Potassium 3.3 Will replace. Leukocytosis resolved. White blood cell count 5400. Hemoglobin 9 and hematocrit 30. Plan to discharge tomorrow Objective Exam Vital Signs Date Time Temp Pulse Resp B/P (MAP) Pulse Ox O2 Delivery O2 Flow Rate FiO2 09/17/16 00:20 98.0 109 18 103/66 94 Room Air 09/16/16 21:45 Room Air 09/16/16 16:00 97.3 86 20 99/66 98 Room Air 09/16/16 09:00 Room Air 09/16/16 08:00 96.7 93 20 104/71 99 Room Air I & O 09/17/16 07:00 Intake Total 5000 ml Output Total 1750 ml Balance 3250 ml Capillary Refill : Less Than 3 Seconds General Appearance: No Apparent Distress, WD/WN HEENT: Normal ENT Inspection Neck: Full Range of Motion, Normal Inspection Respiratory: Chest Non Tender, Lungs Clear, Normal Breath Sounds, No Accessory Muscle Use, No Respiratory Distress Cardiovascular: Regular Rate, Rhythm, No Murmur Gastrointestinal: non tender, soft, other (colostomy) Results Lab Laboratory Tests 09/17/16 05:59: White Blood Count 5.4, Red Blood Count 3.84L, Hemoglobin 9.0L, Hematocrit 30L, Mean Corpuscular Volume 78L, Mean Corpuscular Hemoglobin 23L, Mean Corpuscular Hemoglobin Concent 30L, Red Cell Distribution Width 17.6H, Platelet Count 323, Mean Platelet Volume 10.0, Neutrophils (%) (Auto) 63, Lymphocytes (%) (Auto) 26 , Monocytes (%) (Auto) 6, Eosinophils (%) (Auto) 5, Basophils (%) (Auto) 0, Neutrophils # (Auto) 3.4, Lymphocytes # (Auto) 1.4, Monocytes # (Auto) 0.3, Eosinophils # (Auto) 0.3, Basophils # (Auto) 0.0, Sodium Level 140, Potassium Level 3.3L, Chloride Level 111H, Carbon Dioxide Level 22, Anion Gap 7, Blood Urea Nitrogen 6L, Creatinine 0.53L, Estimat Glomerular Filtration Rate > 60, BUN /Creatinine Ratio 11, Glucose Level 106H, Calcium Level 7.8L Microbiology 09/14/16 Blood Culture - Preliminary, Resulted No growth 09/14/16 Influenza Types A,B Antigen (RENEA) - Final, Complete 09/14/16 Urine Culture - Final, Complete Enterococcus Faecalis Klebsiella Pneumoniae Proteus Vulgaris Assessment/Plan Assessment/Plan Assess & Plan/Chief Complaint sepsis. UTI. Multiple sclerosis. Sacral ulcer.. . . Sepsis. UTI. Multiple sclerosis. Sacral decubiti. Patient clinically doing better. . 09/17/16. Sepsis better. UTI. Multiple sclerosis. Sacral decubiti. Blood tests look better. To check urine tomorrow and plan to discharge tomorrow Clinical Quality Measures DVT/VTE Risk/Contraindication: Risk Factor Score Per Nursin RFS Level Per Nursing on Admit: 4+=Very High EMELI CORLEY DO Sep 17, 2016 07:52
[2016-09-17 08:00] VITALS: BP 129/80
[2016-09-17] MEDS: meTOprolol TARTRATE 25 MG (LOPRESSOR) TABLET PO SCH (10:00)
[2016-09-17] MEDS: MONTELUKAST 10 MG (SINGULAIR) TAB PO SCH (10:00)
[2016-09-17] MEDS: BACLOFEN 10 MG (LIORESAL) TAB PO SCH ×4 (10:00→20:27)
[2016-09-17 16:00] VITALS: BP 97/57
[2016-09-17] MEDS: AUGMENTIN 500 MG TAB (AMOXICILLIN/CLAVULANATE) PO SCH (17:32)
[2016-09-17] MEDS: SENNA W/DOCUSATE (SENOKOT S) TABLET PO PRN (21:31)
[2016-09-17] MEDS: ENOXAPARIN 40 MG/0.4 ML (LOVENOX) SYR SC SCH (21:31)
[2016-09-17] MEDS: AMITRIPTYLINE 50 MG (ELAVIL) TAB PO SCH (21:31)
[2016-09-17 21:55] LABS: BILIRUBIN,URINE NEGATIVE (NEGATIVE); KETONES,URINE NEGATIVE (NEGATIVE); LEUKOCYTE ESTERASE ,URINE 2+ (NEGATIVE); NITRITE,URINE POSITIVE (NEGATIVE); PH,URINE 7 (5-9); PROTEIN,URINE NEGATIVE (NEGATIVE); UROBILINOGEN,URINE NORMAL (NORMAL)
[2016-09-18] VITALS: BP 126/82
[2016-09-18] MEDS: AUGMENTIN 500 MG TAB (AMOXICILLIN/CLAVULANATE) PO SCH (06:05)
[2016-09-18] MEDS: VENlafaxine XR 75 MG (EFFEXOR XR) CAP PO SCH (06:05)
[2016-09-18 07:13] LABS: BASOPHILS % (AUTO) 1 % (0-10); EOSINOPHILS # (AUTO) 0.3 10^3/uL (0.0-0.3); EOSINOPHILS % (AUTO) 7 % (0-10); LYMPHOCYTES # (AUTO) 1.5 X 10^3 (1.0-4.0); LYMPHOCYTES % (AUTO) 39 % (12-44); MEAN CORPUSCULAR HEMOGLOBIN 24 PG (25-34); MEAN CORPUSCULAR HGB CONC 31 G/DL (32-36); MEAN CORPUSCULAR VOLUME 77 FL (80-99); MEAN PLATELET VOLUME 9.5 FL (7.4-10.4); MONOCYTES # (AUTO) 0.2 X 10^3 (0.0-1.0); MONOCYTES % (AUTO) 6 % (0-12); NEUTROPHILS # (AUTO) 1.8 X 10^3 (1.8-7.8); NEUTROPHILS % (AUTO) 47 % (42-75); PLATELET COUNT 381 10^3/uL (130-400); RED BLOOD COUNT 4.06 10^6/uL (4.35-5.85); RED CELL DISTRIBUTION WIDTH 17.5 % (10.0-14.5); WHITE BLOOD COUNT 3.8 10^3/uL (4.3-11.0)
[2016-09-18 07:36] LABS: ANION GAP 10 MMOL/L (5-14); BLOOD UREA NITROGEN 5 MG/DL (7-18); BUN/CREATININE RATIO 9; CALCIUM 8.3 MG/DL (8.5-10.1); CARBON DIOXIDE 23 MMOL/L (21-32); CHLORIDE 107 MMOL/L (98-107); CREATININE SERUM 0.56 MG/DL (0.60-1.30); GFR ESTIMATED > 60; GLUCOSE 86 MG/DL (70-105); POTASSIUM 3.2 MMOL/L (3.6-5.0); SODIUM 140 MMOL/L (135-145)
[2016-09-18] MEDS ORDERED: KCL 10 MEQ TAB (MICRO K) PO NR (08:00)
[2016-09-18] MEDS ORDERED: AMOX-355 PO (08:05)
--- NOTE | 2016-09-18 08:09 | Progress Note (SOAP) ---
Subjective Subjective/Events-last exam patient feeling better and doing good and wants to go home. Patient has to go home by ambulance. Sepsis. Unit tract infection. Multiple sclerosis. Sacral decubiti. Objective Exam Vital Signs Date Time Temp Pulse Resp B/P (MAP) Pulse Ox O2 Delivery O2 Flow Rate FiO2 09/18/16 00:00 97.1 88 18 126/82 94 Room Air 09/17/16 20:30 Room Air 09/17/16 16:00 97.0 93 20 97/57 100 Room Air 09/17/16 09:00 Room Air I & O 09/18/16 07:00 Intake Total 1810 ml Output Total 2650 ml Balance -840 ml Capillary Refill : Less Than 3 Seconds General Appearance: No Apparent Distress, WD/WN HEENT: Normal ENT Inspection Neck: Full Range of Motion, Non Tender Respiratory: Chest Non Tender, Lungs Clear, Normal Breath Sounds, No Accessory Muscle Use, No Respiratory Distress Cardiovascular: Regular Rate, Rhythm, No Murmur Gastrointestinal: non tender Results Lab Laboratory Tests 09/18/16 06:20 Laboratory Tests 09/17/16 21:30: Urine Color YELLOW, Urine Clarity VERY CLOUDYH, Urine pH 7, Urine Specific [place] 1.005L, Urine Protein NEGATIVE, Urine Glucose (UA) NEGATIVE, Urine Ketones NEGATIVE, Urine Nitrite POSITIVEH, Urine Bilirubin NEGATIVE, Urine Urobilinogen NORMAL, Urine Leukocyte Esterase 2+H, Urine RBC (Auto) 1+H, Urine RBC 0-2, Urine WBC 5-10H, Urine Squamous Epithelial Cells 5-10, Urine Crystals PRESENTH, Urine Amorphous Sediment LARGE [place] URATESH, Urine Bacteria FEWH, Urine Casts NONE, Urine Mucus NEGATIVE, Urine Culture Indicated YES 09/18/16 06:20: White Blood Count 3.8L, Red Blood Count 4.06L, Hemoglobin 9.6L, Hematocrit 31L, Mean Corpuscular Volume 77L, Mean Corpuscular Hemoglobin 24L, Mean Corpuscular Hemoglobin Concent 31L, Red Cell Distribution Width 17.5H, Platelet Count 381, Mean Platelet Volume 9.5, Neutrophils (%) (Auto) 47, Lymphocytes (%) (Auto) 39, Monocytes (%) (Auto) 6, Eosinophils (%) (Auto) 7, Basophils (%) (Auto) 1, Neutrophils # (Auto) 1.8, Lymphocytes # (Auto) 1.5, Monocytes # (Auto) 0.2, Eosinophils # (Auto) 0.3, Basophils # (Auto) 0.0, Sodium Level 140, Potassium Level 3.2L, Chloride Level 107, Carbon Dioxide Level 23, Anion Gap 10, Blood Urea Nitrogen 5L, Creatinine 0.56L, Estimat Glomerular Filtration Rate > 60, BUN /Creatinine Ratio 9, Glucose Level 86, Calcium Level 8.3L Microbiology 09/14/16 Blood Culture - Preliminary, Resulted No growth 09/14/16 Influenza Types A,B Antigen (RENEA) - Final, Complete 09/16/16 Urine Culture - Preliminary, Resulted Enterococcus Species Assessment/Plan Assessment/Plan Assess & Plan/Chief Complaint sepsis. UTI. Multiple sclerosis. Sacral ulcer.. . . Sepsis. UTI. Multiple sclerosis. Sacral decubiti. Patient clinically doing better. . 09/17/16. Sepsis better. UTI. Multiple sclerosis. Sacral decubiti. Blood tests look better. To check urine tomorrow and plan to discharge tomorrow. . 09/18/16. Sepsis. UTI. Multiple sclerosis. Sacral decubiti. Patient feeling better and doing better. Patient to be discharged today on Augmentin. Patient needs to go home by ambulance. Clinical Quality Measures DVT/VTE Risk/Contraindication: Risk Factor Score Per Nursin RFS Level Per Nursing on Admit: 4+=Very High EMELI CORLEY DO Sep 18, 2016 08:09
[2016-09-18] MEDS: BACLOFEN 10 MG (LIORESAL) TAB PO SCH (08:15)
[2016-09-18] MEDS: MONTELUKAST 10 MG (SINGULAIR) TAB PO SCH (08:15)
[2016-09-18] MEDS: meTOprolol TARTRATE 25 MG (LOPRESSOR) TABLET PO SCH (08:15)
[2016-09-18 08:32] VITALS: BP 128/85
--- NOTE | 2016-09-21 07:50 | Discharge Summary ---
Diagnosis/Chief Complaint Date of Admission Sep 14, 2016 at 19:35 Date of Discharge Sep 18, 2016 at 10:51 Discharge Diagnosis sepsis. infection with suprapubic. Sacral ulcer. Leukocytosis. Hypokalemia. infection with Enterococcus faecalis , Klebsiella pneumonia, and Proteus vulgaris. Discharge Summary Discharge Physical Examination Allergies: Coded Allergies: interferon beta (Verified Allergy, Unknown, 07/25/08) naproxen (Verified Allergy, Unknown, 07/25/08) Vitals & I&Os Vital Signs Date Time Temp Pulse Resp B/P (MAP) Pulse Ox O2 Delivery O2 Flow Rate FiO2 09/18/16 08:32 98.6 89 20 128/85 99 Room Air Hospital Course patient hospital did get better and felt better and was able to be discharged back to home and home health care Labs (last 24 hrs) Laboratory Tests 09/14/16 17:10: White Blood Count 18.8H, Red Blood Count 4.66, Hemoglobin 11.2L, Hematocrit 36, Mean Corpuscular Volume 77L, Mean Corpuscular Hemoglobin 24L, Mean Corpuscular Hemoglobin Concent 31L, Red Cell Distribution Width 17.7H, Platelet Count 388, Mean Platelet Volume 9.7, Neutrophils (%) (Auto) 94H, Lymphocytes (%) (Auto) 4L , Monocytes (%) (Auto) 3, Eosinophils (%) (Auto) 0, Basophils (%) (Auto) 0, Neutrophils # (Auto) 17.6H, Lymphocytes # (Auto) 0.7L, Monocytes # (Auto) 0.5, Eosinophils # (Auto) 0.1, Basophils # (Auto) 0.0, Neutrophils % (Manual) 86, Lymphocytes % (Manual) 7, Monocytes % (Manual) 1, Eosinophils % (Manual) 1, Basophils % (Manual) 1, Band Neutrophils 4, Anisocytosis SLIGHT, Prothrombin Time 13.2, INR Comment 1.0, Activated Partial Thromboplast Time 26, Sodium Level 136, Potassium Level 4.3, Chloride Level 105, Carbon Dioxide Level 18L, Anion Gap 13, Blood Urea Nitrogen 14, Creatinine 0.69, Estimat Glomerular Filtration Rate > 60, BUN/Creatinine Ratio 20, Glucose Level 114H, Lactic Acid Level 2.68*H, Calcium Level 8.7, Total Bilirubin 0.5, Aspartate Amino Transf ( AST/SGOT) 13, Alanine Aminotransferase (ALT/SGPT) 10, Alkaline Phosphatase 89, Total Protein 7.1, Albumin 3.7 09/14/16 17:36: Urine Color YELLOW, Urine Clarity SLIGHTLY CLOUDY, Urine pH 8, Urine Specific Lyn[place] 1.015L, Urine Protein 2+H, Urine Glucose (UA) NEGATIVE, Urine Ketones 1+ H, Urine Nitrite POSITIVEH, Urine Bilirubin NEGATIVE, Urine Urobilinogen NORMAL , Urine Leukocyte Esterase 3+H, Urine RBC (Auto) 4+H, Urine RBC 5-10H, Urine WBC 25-50H, Urine Crystals NONE, Urine Bacteria LARGEH, Urine Casts NONE, Urine Mucus NEGATIVE, Urine Culture Indicated YES 09/14/16 19:11: Lactic Acid Level 3.14*H 09/14/16 23:25: Lactic Acid Level 2.75*H 09/15/16 01:28: Lactic Acid Level 1.57 09/15/16 05:18: Lactic Acid Level 1.37, White Blood Count 13.7H, Red Blood Count 3.79L, Hemoglobin 9.2L, Hematocrit 29L, Mean Corpuscular Volume 77L, Mean Corpuscular Hemoglobin 24L, Mean Corpuscular Hemoglobin Concent 32, Red Cell Distribution Width 17.7H, Platelet Count 324, Mean Platelet Volume 9.7, Neutrophils (%) (Auto ) 91H, Lymphocytes (%) (Auto) 7L, Monocytes (%) (Auto) 2, Eosinophils (%) (Auto ) 0, Basophils (%) (Auto) 0, Neutrophils # (Auto) 12.5H, Lymphocytes # (Auto) 0.9L, Monocytes # (Auto) 0.2, Eosinophils # (Auto) 0.0, Basophils # (Auto) 0.0, Sodium Level 137, Potassium Level 3.3L, Chloride Level 109H, Carbon Dioxide Level 20L, Anion Gap 8, Blood Urea Nitrogen 10, Creatinine 0.58L, Estimat Glomerular Filtration Rate > 60, BUN/Creatinine Ratio 17, Glucose Level 112H, Calcium Level 7.7L, Magnesium Level 1.6L, Total Bilirubin 0.7, Aspartate Amino Transf (AST/SGOT) 15, Alanine Aminotransferase (ALT/SGPT) 10, Alkaline Phosphatase 62, Total Protein 5.4L, Albumin 2.8L 09/16/16 06:45: Urine Color YELLOW, Urine Clarity CLEAR, Urine pH 5, Urine Specific Lynd 1.025H, Urine Protein 1+H, Urine Glucose (UA) NEGATIVE, Urine Ketones NEGATIVE, Urine Nitrite POSITIVEH, Urine Bilirubin NEGATIVE, Urine Urobilinogen NORMAL, Urine Leukocyte Esterase 3+H, Urine RBC (Auto) 1+H, Urine RBC 0-2, Urine WBC 10- 25H, Urine Squamous Epithelial Cells 10-25H, Urine Crystals NONE, Urine Bacteria MODERATEH, Urine Casts NONE, Urine Mucus NEGATIVE, Urine Culture Indicated YES 09/16/16 07:05: White Blood Count 7.0, Red Blood Count 4.04L, Hemoglobin 9.7L, Hematocrit 32L, Mean Corpuscular Volume 78L, Mean Corpuscular Hemoglobin 24L, Mean Corpuscular Hemoglobin Concent 31L, Red Cell Distribution Width 17.8H, Platelet Count 312, Mean Platelet Volume 9.9, Neutrophils (%) (Auto) 76H, Lymphocytes (%) (Auto) 15 , Monocytes (%) (Auto) 5, Eosinophils (%) (Auto) 4, Basophils (%) (Auto) 0, Neutrophils # (Auto) 5.3, Lymphocytes # (Auto) 1.1, Monocytes # (Auto) 0.3, Eosinophils # (Auto) 0.3, Basophils # (Auto) 0.0, Sodium Level 139, Potassium Level 3.6, Chloride Level 113H, Carbon Dioxide Level 17L, Anion Gap 9, Blood Urea Nitrogen 8, Creatinine 0.58L, Estimat Glomerular Filtration Rate > 60, BUN/ Creatinine Ratio 14, Glucose Level 107H, Calcium Level 7.9L 09/17/16 05:59: White Blood Count 5.4, Red Blood Count 3.84L, Hemoglobin 9.0L, Hematocrit 30L, Mean Corpuscular Volume 78L, Mean Corpuscular Hemoglobin 23L, Mean Corpuscular Hemoglobin Concent 30L, Red Cell Distribution Width 17.6H, Platelet Count 323, Mean Platelet Volume 10.0, Neutrophils (%) (Auto) 63, Lymphocytes (%) (Auto) 26 , Monocytes (%) (Auto) 6, Eosinophils (%) (Auto) 5, Basophils (%) (Auto) 0, Neutrophils # (Auto) 3.4, Lymphocytes # (Auto) 1.4, Monocytes # (Auto) 0.3, Eosinophils # (Auto) 0.3, Basophils # (Auto) 0.0, Sodium Level 140, Potassium Level 3.3L, Chloride Level 111H, Carbon Dioxide Level 22, Anion Gap 7, Blood Urea Nitrogen 6L, Creatinine 0.53L, Estimat Glomerular Filtration Rate > 60, BUN /Creatinine Ratio 11, Glucose Level 106H, Calcium Level 7.8L 09/17/16 21:30: Urine Color YELLOW, Urine Clarity VERY CLOUDYH, Urine pH 7, Urine Specific Lynd 1.005L, Urine Protein NEGATIVE, Urine Glucose (UA) NEGATIVE, Urine Ketones NEGATIVE, Urine Nitrite POSITIVEH, Urine Bilirubin NEGATIVE, Urine Urobilinogen NORMAL, Urine Leukocyte Esterase 2+H, Urine RBC (Auto) 1+H, Urine RBC 0-2, Urine WBC 5-10H, Urine Squamous Epithelial Cells 5-10, Urine Crystals PRESENTH, Urine Amorphous Sediment LARGE [place] URATESH, Urine Bacteria FEWH, Urine Casts NONE, Urine Mucus NEGATIVE, Urine Culture Indicated YES 09/18/16 06:20: White Blood Count 3.8L, Red Blood Count 4.06L, Hemoglobin 9.6L, Hematocrit 31L, Mean Corpuscular Volume 77L, Mean Corpuscular Hemoglobin 24L, Mean Corpuscular Hemoglobin Concent 31L, Red Cell Distribution Width 17.5H, Platelet Count 381, Mean Platelet Volume 9.5, Neutrophils (%) (Auto) 47, Lymphocytes (%) (Auto) 39, Monocytes (%) (Auto) 6, Eosinophils (%) (Auto) 7, Basophils (%) (Auto) 1, Neutrophils # (Auto) 1.8, Lymphocytes # (Auto) 1.5, Monocytes # (Auto) 0.2, Eosinophils # (Auto) 0.3, Basophils # (Auto) 0.0, Sodium Level 140, Potassium Level 3.2L, Chloride Level 107, Carbon Dioxide Level 23, Anion Gap 10, Blood Urea Nitrogen 5L, Creatinine 0.56L, Estimat Glomerular Filtration Rate > 60, BUN /Creatinine Ratio 9, Glucose Level 86, Calcium Level 8.3L Microbiology 09/14/16 Blood Culture - Final, Complete No growth 09/14/16 Influenza Types A,B Antigen (RENEA) - Final, Complete 09/17/16 Urine Culture - Final, Complete Enterococcus Faecalis Laboratory Tests 09/14/16 17:10 09/15/16 05:18 09/16/16 07:05 09/17/16 05:59 09/18/16 06:20 Pending Labs Microbiology Date/Time Source Procedure Growth Status 09/14/16 17:25 Peripheral Lt Ac Blood Culture - Final No growth Complete 09/14/16 17:10 Peripheral Lt Ac Blood Culture - Final No growth Complete 09/14/16 17:38 Nasopharynx Influenza Types A,B Antigen (RENEA) - Final Complete 09/17/16 21:30 Urine Clean Catch Urine Culture - Final Enterococcus Faecalis Complete 09/16/16 06:45 Urine Clean Catch Urine Culture - Final Enterococcus Faecalis Complete 09/14/16 17:36 Urine Clean Catch Urine Culture - Final Enterococcus Faecalis Klebsiella Pneumoniae Proteus Vulgaris Complete Laboratory Tests 09/14/16 17:10: White Blood Count 18.8, Red Blood Count 4.66, Hemoglobin 11.2, Hematocrit 36, Mean Corpuscular Volume 77, Mean Corpuscular Hemoglobin 24, Mean Corpuscular Hemoglobin Concent 31, Red Cell Distribution Width 17.7, Platelet Count 388, Mean Platelet Volume 9.7, Neutrophils (%) (Auto) 94, Lymphocytes (%) (Auto) 4, Monocytes (%) (Auto) 3, Eosinophils (%) (Auto) 0, Basophils (%) (Auto) 0, Neutrophils # (Auto) 17.6, Lymphocytes # (Auto) 0.7, Monocytes # (Auto) 0.5, Eosinophils # (Auto) 0.1, Basophils # (Auto) 0.0, Neutrophils % (Manual) 86, Lymphocytes % (Manual) 7, Monocytes % (Manual) 1, Eosinophils % (Manual) 1, Basophils % (Manual) 1, Band Neutrophils 4, Anisocytosis SLIGHT, Prothrombin Time 13.2, INR Comment 1.0, Activated Partial Thromboplast Time 26, Sodium Level 136, Potassium Level 4.3, Chloride Level 105, Carbon Dioxide Level 18, Anion Gap 13, Blood Urea Nitrogen 14, Creatinine 0.69, Estimat Glomerular Filtration Rate > 60, BUN/Creatinine Ratio 20, Glucose Level 114, Lactic Acid Level 2.68, Calcium Level 8.7, Total Bilirubin 0.5, Aspartate Amino Transf (AST/ SGOT) 13, Alanine Aminotransferase (ALT/SGPT) 10, Alkaline Phosphatase 89, Total Protein 7.1, Albumin 3.7 09/14/16 17:36: Urine Color YELLOW, Urine Clarity SLIGHTLY CLOUDY, Urine pH 8, Urine Specific Lynd 1.015, Urine Protein 2+, Urine Glucose (UA) NEGATIVE, Urine Ketones 1+, Urine Nitrite POSITIVE, Urine Bilirubin NEGATIVE, Urine Urobilinogen NORMAL, Urine Leukocyte Esterase 3+, Urine RBC (Auto) 4+, Urine RBC 5-10, Urine WBC 25- 50, Urine Crystals NONE, Urine Bacteria LARGE, Urine Casts NONE, Urine Mucus NEGATIVE, Urine Culture Indicated YES 09/14/16 19:11: Lactic Acid Level 3.14 09/14/16 23:25: Lactic Acid Level 2.75 09/15/16 01:28: Lactic Acid Level 1.57 09/15/16 05:18: Lactic Acid Level 1.37, White Blood Count 13.7, Red Blood Count 3.79, Hemoglobin 9.2, Hematocrit 29, Mean Corpuscular Volume 77, Mean Corpuscular Hemoglobin 24, Mean Corpuscular Hemoglobin Concent 32, Red Cell Distribution Width 17.7, Platelet Count 324, Mean Platelet Volume 9.7, Neutrophils (%) (Auto ) 91, Lymphocytes (%) (Auto) 7, Monocytes (%) (Auto) 2, Eosinophils (%) (Auto) 0 , Basophils (%) (Auto) 0, Neutrophils # (Auto) 12.5, Lymphocytes # (Auto) 0.9, Monocytes # (Auto) 0.2, Eosinophils # (Auto) 0.0, Basophils # (Auto) 0.0, Sodium Level 137, Potassium Level 3.3, Chloride Level 109, Carbon Dioxide Level 20, Anion Gap 8, Blood Urea Nitrogen 10, Creatinine 0.58, Estimat Glomerular Filtration Rate > 60, BUN/Creatinine Ratio 17, Glucose Level 112, Calcium Level 7.7, Magnesium Level 1.6, Total Bilirubin 0.7, Aspartate Amino Transf (AST/SGOT ) 15, Alanine Aminotransferase (ALT/SGPT) 10, Alkaline Phosphatase 62, Total Protein 5.4, Albumin 2.8 09/16/16 06:45: Urine Color YELLOW, Urine Clarity CLEAR, Urine pH 5, Urine Specific Lynd 1.025, Urine Protein 1+, Urine Glucose (UA) NEGATIVE, Urine Ketones NEGATIVE, Urine Nitrite POSITIVE, Urine Bilirubin NEGATIVE, Urine Urobilinogen NORMAL, Urine Leukocyte Esterase 3+, Urine RBC (Auto) 1+, Urine RBC 0-2, Urine WBC 10-25 , Urine Squamous Epithelial Cells 10-25, Urine Crystals NONE, Urine Bacteria MODERATE, Urine Casts NONE, Urine Mucus NEGATIVE, Urine Culture Indicated YES 09/16/16 07:05: White Blood Count 7.0, Red Blood Count 4.04, Hemoglobin 9.7, Hematocrit 32, Mean Corpuscular Volume 78, Mean Corpuscular Hemoglobin 24, Mean Corpuscular Hemoglobin Concent 31, Red Cell Distribution Width 17.8, Platelet Count 312, Mean Platelet Volume 9.9, Neutrophils (%) (Auto) 76, Lymphocytes (%) (Auto) 15, Monocytes (%) (Auto) 5, Eosinophils (%) (Auto) 4, Basophils (%) (Auto) 0, Neutrophils # (Auto) 5.3, Lymphocytes # (Auto) 1.1, Monocytes # (Auto) 0.3, Eosinophils # (Auto) 0.3, Basophils # (Auto) 0.0, Sodium Level 139, Potassium Level 3.6, Chloride Level 113, Carbon Dioxide Level 17, Anion Gap 9, Blood Urea Nitrogen 8, Creatinine 0.58, Estimat Glomerular Filtration Rate > 60, BUN/ Creatinine Ratio 14, Glucose Level 107, Calcium Level 7.9 09/17/16 05:59: White Blood Count 5.4, Red Blood Count 3.84, Hemoglobin 9.0, Hematocrit 30, Mean Corpuscular Volume 78, Mean Corpuscular Hemoglobin 23, Mean Corpuscular Hemoglobin Concent 30, Red Cell Distribution Width 17.6, Platelet Count 323, Mean Platelet Volume 10.0, Neutrophils (%) (Auto) 63, Lymphocytes (%) (Auto) 26 , Monocytes (%) (Auto) 6, Eosinophils (%) (Auto) 5, Basophils (%) (Auto) 0, Neutrophils # (Auto) 3.4, Lymphocytes # (Auto) 1.4, Monocytes # (Auto) 0.3, Eosinophils # (Auto) 0.3, Basophils # (Auto) 0.0, Sodium Level 140, Potassium Level 3.3, Chloride Level 111, Carbon Dioxide Level 22, Anion Gap 7, Blood Urea Nitrogen 6, Creatinine 0.53, Estimat Glomerular Filtration Rate > 60, BUN/ Creatinine Ratio 11, Glucose Level 106, Calcium Level 7.8 09/17/16 21:30: Urine Color YELLOW, Urine Clarity VERY CLOUDY, Urine pH 7, Urine Specific Lynd 1.005, Urine Protein NEGATIVE, Urine Glucose (UA) NEGATIVE, Urine Ketones NEGATIVE, Urine Nitrite POSITIVE, Urine Bilirubin NEGATIVE, Urine Urobilinogen NORMAL, Urine Leukocyte Esterase 2+, Urine RBC (Auto) 1+, Urine RBC 0-2, Urine WBC 5-10, Urine Squamous Epithelial Cells 5-10, Urine Crystals PRESENT, Urine Amorphous Sediment LARGE [place] URATES, Urine Bacteria FEW, Urine Casts NONE, Urine Mucus NEGATIVE, Urine Culture Indicated YES 09/18/16 06:20: White Blood Count 3.8, Red Blood Count 4.06, Hemoglobin 9.6, Hematocrit 31, Mean Corpuscular Volume 77, Mean Corpuscular Hemoglobin 24, Mean Corpuscular Hemoglobin Concent 31, Red Cell Distribution Width 17.5, Platelet Count 381, Mean Platelet Volume 9.5, Neutrophils (%) (Auto) 47, Lymphocytes (%) (Auto) 39, Monocytes (%) (Auto) 6, Eosinophils (%) (Auto) 7, Basophils (%) (Auto) 1, Neutrophils # (Auto) 1.8, Lymphocytes # (Auto) 1.5, Monocytes # (Auto) 0.2, Eosinophils # (Auto) 0.3, Basophils # (Auto) 0.0, Sodium Level 140, Potassium Level 3.2, Chloride Level 107, Carbon Dioxide Level 23, Anion Gap 10, Blood Urea Nitrogen 5, Creatinine 0.56, Estimat Glomerular Filtration Rate > 60, BUN/ Creatinine Ratio 9, Glucose Level 86, Calcium Level 8.3 Radiology Reviewed chest x-ray no acute process CT of the abdomen/pelvis with contrast chronic findings with moderate stool Discharge Home Medications: Active Scripts Active Augmentin 500-125 Tablet (Amoxicillin/Potassium Clav) 1 Each Tablet 1 Each PO BID Reported [Aquacel] TOP UD CLEAN WOUND WITH NS AND APPLY AQUACEL. APPLY NS TO WOUND BED IF DRY. COVER WITH SUPER ABSORBENT DRESSING. Metoprolol Tartrate 50 Mg Tablet 50 Mg PO DAILY Docusate Sodium-Senna Tablet (Sennosides/Docusate Sodium) 1 Each Tablet 1 Tab PO DAILY PRN Venlafaxine HCl ER (Venlafaxine HCl) 150 Mg Cap.er.24h 150 Mg PO DAILY Montelukast Sodium 10 Mg Tablet 10 Mg PO DAILY Nystatin 60 Gm Powder TOP BID Baclofen 20 Mg Tablet 20 Mg PO QID Amitriptyline HCl 50 Mg Tablet 50 Mg PO HS Instructions to patient/family Please see electonic discharge instructions given to patient. Diagnosis/Problems Diagnosis/Problems (1) Urinary tract infection Status: Acute Qualifiers: Qualified Codes: T83.510A - Infection and inflammatory reaction due to cystostomy catheter, initial encounter; N39.0 - Urinary tract infection, site not specified Clinical Quality Measures DVT/VTE Risk/Contraindication: Risk Factor Score Per Nursin RFS Level Per Nursing on Admit: 4+=Very High EMELI CORLEY DO Sep 21, 2016 07:50
--- OUTSIDE RECORDS SUMMARY | 2016-10-19 06:09 | XMS REPORT | Continuity of Care Document ---
Author Author [facility] Organization [facility] Address Unknown Phone Unavailable Allergies Active Description Code Type Severity Reaction Onset Reported/Identified Relationship to Patient Clinical Status Yes interferon beta [id number] Drug Allergy Unknown N/A 07/25/2008 Yes naproxen [id number] Drug Allergy Unknown N/A 07/25/2008 Medications Problems Date Dx Coded Attending Type Code Diagnosis Diagnosed By 05/07/1599 DANIEL RING, MINESH Mckeon Ot G35 MULTIPLE SCLEROSIS 05/07/1599 DANIEL RING, MINESH Mckeon Ot G82.21 PARAPLEGIA, COMPLETE 05/07/1599 DANIEL RING, MINESH Mckeon Ot 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, STAGE 3 04/26/2009 Ot 340 04/26/2009 Ot 781.2 04/26/2009 Ot V15.88 04/26/2009 Ot V57.1 12/02/2009 Ot 340 12/02/2009 Ot 844.9 12/02/2009 Ot 845.10 12/02/2009 Ot 959.7 12/02/2009 Ot E000.8 12/02/2009 Ot E029.9 12/02/2009 Ot E849.0 12/02/2009 Ot E888.8 01/17/2010 Ot 340 01/17/2010 Ot V57.1 10/17/2010 Ot 041.3 10/17/2010 Ot 112.3 10/17/2010 Ot 273.8 10/17/2010 Ot 275.41 10/17/2010 Ot 278.00 10/17/2010 Ot 305.1 10/17/2010 Ot 311 10/17/2010 Ot 340 10/17/2010 Ot 401.9 10/17/2010 Ot 564.00 10/17/2010 Ot 564.81 10/17/2010 Ot 596.54 10/17/2010 Ot 599.0 10/17/2010 Ot 780.52 10/17/2010 Ot 787.91 10/17/2010 Ot V46.3 10/17/2010 Ot V57.1 10/17/2010 Ot V57.21 10/17/2010 Ot V85.31 02/11/2011 Ot 340 02/11/2011 Ot 780.79 08/23/2013 AZAR RING, AYDIN A Ot 599.0 08/23/2013 AZAR RING, AYDIN Vivas Ot 623.8 08/23/2013 AZAR RING, AYDIN Vivas Ot V74.8 11/16/2013 GELLENEMELI BAKER DO Ot 707.8 CHRONIC SKIN ULCER NEC 01/30/2014 GABI RING, RAFI Ot 305.1 01/30/2014 GABI RING, RAFI Ot 340 01/30/2014 GABI RING, RAFI Ot 344.1 01/30/2014 GABI RING, RAFI Ot 401.9 01/30/2014 GABI RING, RAFI Ot 707.03 01/30/2014 GABI RING, RAFI Ot 707.23 01/30/2014 GABI RING, RAFI Ot 787.60 01/30/2014 GABI RING, RAFI Ot V12.54 01/30/2014 GABI RING, RAFI Ot V44.50 02/10/2014 AIDA HAMMOND PROGRAM DIRECTOR AIR TALENT Ot 305.1 02/10/2014 AIDA HAMMOND PROGRAM DIRECTOR AIR TALENT Ot 340 02/10/2014 AIDA HAMMOND PROGRAM DIRECTOR AIR TALENT Ot 401.9 02/10/2014 AIDA HAMMOND PROGRAM DIRECTOR AIR TALENT Ot 493.90 02/10/2014 AIDA HAMMOND PROGRAM DIRECTOR AIR TALENT Ot V12.54 02/10/2014 AIDA HAMMOND PROGRAM DIRECTOR AIR TALENT Ot V55.3 03/01/2014 BARNEY ESPINOZA EMELI Vivas Ot 593.9 03/01/2014 GELLENDER EMELI Vivas Ot 707.03 03/01/2014 GELLENDER EMELI Vivas Ot 707.20 03/01/2014 GELLENDER EMELI Vivas Ot 789.00 04/21/2014 GELLENDER EMELI Vivas Ot 599.0 05/14/2014 GELPARADISE ESPINOZA EMELI Vivas Ot 599.0 06/28/2014 Ot 726.73 06/28/2014 Ot 824.8 06/28/2014 Ot E000.8 06/28/2014 Ot E029.9 06/28/2014 Ot E849.0 06/28/2014 Ot E888.9 06/28/2014 Ot V76.12 06/28/2014 Ot 781.94 06/28/2014 Ot 782.0 06/28/2014 Ot 599.0 06/28/2014 Ot 791.9 06/28/2014 Ot 599.0 06/28/2014 Ot 785.9 06/28/2014 Ot 733.90 06/28/2014 Ot 793.7 06/28/2014 Ot 596.54 06/28/2014 Ot 791.9 06/28/2014 Ot V44.50 06/28/2014 Ot 599.0 06/28/2014 Ot 401.9 06/28/2014 Ot 424.0 06/28/2014 Ot 785.0 06/28/2014 Ot 791.9 06/28/2014 Ot 729.81 06/28/2014 GELLENDER DO, EMELI Vivas Ot 791.9 06/28/2014 GELLENDER DO, EMELI Vivas Ot V82.89 06/28/2014 GELLENDER DO, EMELI Vivas Ot 791.9 06/28/2014 GELLENDER DO, EMELI Viavs Ot 599.0 06/28/2014 GELLENDER DO, EMELI Ortega Ot 599.0 06/28/2014 AYDIN ASKEW MD Ot 791.9 06/28/2014 GELLENDER DO, EMELI Vivas Ot 719.07 06/28/2014 GELLENDER DO, EMELI Ortega Ot 729.81 06/28/2014 GELLENDER DO, EMELI Ortega Ot 447.1 06/28/2014 GELLENDER DO, EMELI A Ot 719.07 06/28/2014 GELLENDER DO, EMELI Vivas Ot 729.81 06/28/2014 GELLENDER DO, EMELI A Ot 791.9 06/28/2014 GELLENDER DO, EMELI Ortega Ot 789.00 06/28/2014 GELLENDER DO, EMELI Ortega Ot 599.0 06/28/2014 JUDY RING, MICHAEL Christie Ot 340 06/28/2014 JUDY RING, MICHAEL Christie Ot 401.9 06/28/2014 GELLENDER DO, EMELI Vivas Ot 599.0 06/28/2014 GELLENDER DO, EMELI Vivas Ot 789.02 06/28/2014 GELLENDER DO, EMELI Vivas Ot 793.4 06/28/2014 GABI RING, RAFI Ot 340 06/28/2014 GABI RING, RAFI Ot V72.63 06/28/2014 GABI RING, RAFI Ot V74.8 06/28/2014 GELLENDER DO, EMELI Vivas Ot 599.0 06/28/2014 GELLENDER DO, EMELI Vivas Ot 599.0 06/28/2014 GELLENDER DO, EMELI Vivas Ot V58.62 06/28/2014 GELLENDER DO, EMELI Vivas Ot 599.0 06/28/2014 GELLENDER DO, EMELI Vivas Ot 311 06/28/2014 GELLENDER DO, EMELI Vivas Ot 340 06/28/2014 GELLENDER DO, EMELI Vivas Ot 401.9 06/28/2014 GELLENDER DO, EMELI Vivas Ot 596.54 06/28/2014 GELLENDER DO, EMELI Vivas Ot 707.8 06/28/2014 ROSEMARY CARNEY Ot 305.1 06/28/2014 ROSEMARY CARNEY Ot 340 06/28/2014 ROSEMARY CARNEY Ot 682.3 06/28/2014 ROSEMARY CARNEY Ot 729.5 06/28/2014 Ot 726.73 06/28/2014 Ot 824.8 06/28/2014 Ot E000.8 06/28/2014 Ot E029.9 06/28/2014 Ot E849.0 06/28/2014 Ot E888.9 06/28/2014 Ot V76.12 06/28/2014 Ot 781.94 06/28/2014 Ot 782.0 06/28/2014 Ot 599.0 06/28/2014 Ot 791.9 06/28/2014 Ot 599.0 06/28/2014 Ot 785.9 06/28/2014 Ot 733.90 06/28/2014 Ot 793.7 06/28/2014 Ot 596.54 06/28/2014 Ot 791.9 06/28/2014 Ot V44.50 06/28/2014 Ot 599.0 06/28/2014 Ot 401.9 06/28/2014 Ot 424.0 06/28/2014 Ot 785.0 06/28/2014 Ot 791.9 06/28/2014 Ot 729.81 06/28/2014 GELLENDER DO, EMELI A Ot 791.9 06/28/2014 GELLENDER DO, EMELI A Ot V82.89 06/28/2014 GELLENDER DO, EMELI A Ot 791.9 06/28/2014 GELLENDER DO, EMELI A Ot 599.0 06/28/2014 GELLENDER DO, EMELI A Ot 599.0 06/28/2014 AZAR RING, AYDIN Ortega Ot 791.9 06/28/2014 GELLENDER DO, EMELI A Ot 719.07 06/28/2014 GELLENDER DO, EMELI A Ot 729.81 06/28/2014 GELLENDER DO, EMELI A Ot 447.1 06/28/2014 GELLENDER DO, EMELI A Ot 719.07 06/28/2014 GELLENDER DO, EMELI A Ot 729.81 06/28/2014 GELLENDER DO, EMELI A Ot 791.9 06/28/2014 GELLENDER DO, MEELI A Ot 789.00 06/28/2014 GELLENDER DO, EMELI A Ot 599.0 06/28/2014 JUDY RING, MICHAEL Christie Ot 340 06/28/2014 JUDY RING, MICHAEL Christie Ot 401.9 06/28/2014 GELLENDER DO, EMELI A Ot 599.0 06/28/2014 GELLENDER DO, EMELI A Ot 789.02 06/28/2014 GELLENDER DO, EMELI A Ot 793.4 06/28/2014 GABI RING, RAFI Ot 340 06/28/2014 GABI RING, RAFI Ot V72.63 06/28/2014 GABI RING, RAFI Ot V74.8 06/28/2014 GELLENDER DO, EMELI A Ot 599.0 06/28/2014 GELLENDER DO, EMELI A Ot 599.0 06/28/2014 GELLENDER DO, EMELI A Ot V58.62 06/28/2014 GELLENDER DO, EMELI A Ot 599.0 06/28/2014 GELLENDER DO, EMELI A Ot 311 06/28/2014 GELLENDER DO, EMELI A Ot 340 06/28/2014 GELLENDER DO, EMELI A Ot 401.9 06/28/2014 GELLENDER DO, EMELI Vvias Ot 596.54 06/28/2014 GELLENDER DO, EMELI Vivas Ot 707.8 06/30/2014 GELLENDER DO, EMELI Vivas Ot 599.0 06/30/2014 GELLENDER DO, EMELI Vivas Ot 599.0 06/30/2014 GELLENDER DO, EMELI Vivas Ot 599.0 06/30/2014 GELLENDER DO, EMELI Vivas Ot V58.62 06/30/2014 GELLENDER DO, EMELI Vivas Ot 599.0 06/30/2014 GELLENDER DO, EMELI Vivas Ot V58.62 07/12/2014 Ot 726.73 07/12/2014 Ot 824.8 07/12/2014 Ot E000.8 07/12/2014 Ot E029.9 07/12/2014 Ot E849.0 07/12/2014 Ot E888.9 07/12/2014 Ot V76.12 07/12/2014 Ot 781.94 07/12/2014 Ot 782.0 07/12/2014 Ot 599.0 07/12/2014 Ot 791.9 07/12/2014 Ot 599.0 07/12/2014 Ot 785.9 07/12/2014 Ot 733.90 07/12/2014 Ot 793.7 07/12/2014 Ot 596.54 07/12/2014 Ot 791.9 07/12/2014 Ot V44.50 07/12/2014 Ot 599.0 07/12/2014 Ot 401.9 07/12/2014 Ot 424.0 07/12/2014 Ot 785.0 07/12/2014 Ot 791.9 07/12/2014 Ot 729.81 07/12/2014 GELLENDER DO, EMELI Vivas Ot 791.9 07/12/2014 GELLENDER DO, EMELI Vivas Ot V82.89 07/12/2014 GELLENDER DO, EMELI Vivas Ot 791.9 07/12/2014 GELLENDER DO, EMELI Vivas Ot 599.0 07/12/2014 GELLENDER DO, EMELI Vivas Ot 599.0 07/12/2014 AYDIN ASKEW MD Ot 791.9 07/12/2014 GELLENDER DO, EMELI Vivas Ot 719.07 07/12/2014 GELLENDER DO, EMELI Vivas Ot 729.81 07/12/2014 GELLENDER DO, EMELI A Ot 447.1 07/12/2014 GELLENDER DO, EMELI A Ot 719.07 07/12/2014 GELLENDER DO, EMELI A Ot 729.81 07/12/2014 GELLENDER DO, EMELI Vivas Ot 791.9 07/12/2014 GELLENDER DO, EMELI A Ot 789.00 07/12/2014 GELLENDER DO, EMELI A Ot 599.0 07/12/2014 JUDY RING, MICHAEL Christie Ot 340 07/12/2014 JUDY RING, MICHAEL Christie Ot 401.9 07/12/2014 GELLENDER DO, EMELI A Ot 599.0 07/12/2014 GELLENDER DO, EMELI A Ot 789.02 07/12/2014 GELLENDER DO, EMELI Vivas Ot 793.4 07/12/2014 GABI RING, RAFI Ot 340 07/12/2014 GABI RING, RAFI Ot V72.63 07/12/2014 GABI RING, RAFI Ot V74.8 07/12/2014 GELLENDER DO, EMELI Vivas Ot 599.0 07/12/2014 GELLENDER DO, EMELI A Ot 311 07/12/2014 GELLENDER DO, EMELI A Ot 340 07/12/2014 GELLENDER DO, EMELI A Ot 401.9 07/12/2014 GELLENDER DO, EMELI A Ot 596.54 07/12/2014 GELLENDER DO, EMELI A Ot 707.8 07/17/2014 GELLENDER DO, EMELI A Ot 311 07/17/2014 GELLENDER DO, EMELI A Ot 340 07/17/2014 GELLENDER DO, EMELI A Ot 401.9 07/17/2014 GELLENDER DO, EMELI A Ot 596.54 07/17/2014 GELLENDER DO, EMELI A Ot 707.8 07/20/2014 GABI RING, RAFI Ot 305.1 TOBACCO USE DISORDER 07/20/2014 GABI RING, RAFI Ot 709.2 SCAR FIBROSIS OF SKIN 10/11/2014 GELLENDER DO, EMELI A Ot 719.07 10/11/2014 GELLENDER DO, EMELI A Ot 729.81 10/11/2014 GELLENDER DO, EMELI Vivas Ot 447.1 10/11/2014 GELLENDER DO, EMELI Vivas Ot 719.07 10/11/2014 GELLENDER DO, EMELI Vivas Ot 729.81 10/11/2014 GELLENDER DO, EMELI Vivas Ot 791.9 10/11/2014 GELLENDER DO, EMELI Vivas Ot 789.00 10/11/2014 GELLENDER DO, EMELI Vivas Ot 599.0 10/11/2014 JUDY RING, MICHAEL Christie Ot 340 10/11/2014 JUDY RING, MICHAEL Christie Ot 401.9 10/11/2014 GELLENDER DO, EMELI Vivas Ot 599.0 10/11/2014 GELLENDER DO, EMELI Vivas Ot 789.02 10/11/2014 GELLENDER DO, EMELI Vivas Ot 793.4 11/02/2014 GELLENDER DO, EMELI Vivas Ot 596.54 11/02/2014 GELLENDER DO, EMELI Vivas Ot 596.54 11/02/2014 GELLENDER DO, EMELI Vivas Ot 596.54 11/05/2014 GELLENDER DO, EMELI Vivas Ot 344.1 11/05/2014 GELLENDER DO, EMELI Vivas Ot 707.05 11/05/2014 GELLENDER DO, EMELI Vivas Ot 707.23 11/08/2014 GELLENDER DO, EMELI Vivas Ot 707.03 11/29/2014 GELLENDER DO, EMELI Vivas Ot 707.03 11/30/2014 GELLENDER DO, EMELI Vivas Ot 596.54 12/05/2014 GELLENDER DO, EMELI Vivas Ot 596.54 12/29/2014 GELLENDER DO, EMELI Vivas Ot 596.54 04/13/2015 GELLENDER DO, EMELI Vivas Ot 791.9 09/21/2015 GELLENDER DO, EMELI Ortega Ot F17.210 NICOTINE DEPENDENCE, CIGARETTES, UNCOMPL 09/21/2015 GELLENDER DO, EMELI Vivas Ot F32.9 MAJOR DEPRESSIVE DISORDER, SINGLE EPISOD 09/21/2015 GELLENDER DO, EMELI Vivas Ot G35 MULTIPLE SCLEROSIS 09/21/2015 GELLENDER DO, EMELI Vivas Ot I10 ESSENTIAL (PRIMARY) HYPERTENSION 09/21/2015 GELLENDER DO, EMELI Vivas Ot J45.909 UNSPECIFIED ASTHMA, UNCOMPLICATED 09/21/2015 GELLENDER DO, EMELI Vivas Ot K25.5 CHRONIC OR UNSPECIFIED GASTRIC ULCER WIT 09/21/2015 GELLENDER DO, EMELI Vivas Ot K56.69 OTHER INTESTINAL OBSTRUCTION 09/21/2015 GELLENDER DO, EMELI Vivas Ot N30.00 ACUTE CYSTITIS WITHOUT HEMATURIA 09/21/2015 GELLENDER DO, EMELI Vivas Ot Z93.3 COLOSTOMY STATUS 09/21/2015 GELLENDER DO, EMELI Vivas Ot Z93.51 CUTANEOUS-VESICOSTOMY STATUS 09/23/2015 GELLENDER DO, EMELI Vivas Ot F17.210 NICOTINE DEPENDENCE, CIGARETTES, UNCOMPL 09/23/2015 GELLENDER DO, EMELI Vivas Ot F32.9 MAJOR DEPRESSIVE DISORDER, SINGLE EPISOD 09/23/2015 GELLENDER DO, EMELI Vivas Ot G35 MULTIPLE SCLEROSIS 09/23/2015 GELLENDER DO, EMELI Vivas Ot I10 ESSENTIAL (PRIMARY) HYPERTENSION 09/23/2015 GELLENDER DO, EMELI Vivas Ot J45.909 UNSPECIFIED ASTHMA, UNCOMPLICATED 09/23/2015 GELLENDER DO, EMELI Vivas Ot K25.5 CHRONIC OR UNSPECIFIED GASTRIC ULCER WIT 09/23/2015 GELLENDER DO, EMELI Vivas Ot K56.69 OTHER INTESTINAL OBSTRUCTION 09/23/2015 GELLENDER DO, EMELI Vivas Ot N30.00 ACUTE CYSTITIS WITHOUT HEMATURIA 09/23/2015 GELLENDER DO, EMELI Vivas Ot T83.51XA INFECT/INFLM REACTION DUE TO INDWELL URI 09/23/2015 GELLENDER DO, EMELI Vivas Ot Z93.3 COLOSTOMY STATUS 09/23/2015 GELLENDER DO, EMELI Vivas Ot Z93.51 CUTANEOUS-VESICOSTOMY STATUS 11/07/2015 GELLENDER DO, EMELI Vivas Ot 599.0 URIN TRACT INFECTION NOS 11/11/2015 GELLENDER DO, EMELI Vivas Ot 719.07 JOINT EFFUSION-ANKLE 11/11/2015 GELLENDER DO, EMELI Vivas Ot 729.81 SWELLING OF LIMB 11/11/2015 GELLENDER DOEMELI Ot 447.1 STRICTURE OF ARTERY 11/11/2015 GELLENDER DO, EMELI Vivas Ot 719.07 JOINT EFFUSION-ANKLE 11/11/2015 GELLENDER DO, EMELI Vivas Ot 729.81 SWELLING OF LIMB 11/11/2015 GELLENDER DO, EMELI Vivas Ot 791.9 ABN URINE FINDINGS NEC 11/11/2015 GELLENDER DOEMELI Ot 789.00 ABDOMINAL PAIN, UNSPECIFIED SITE 11/11/2015 GELLENDER , EMELI Ortega Ot 599.0 URIN TRACT INFECTION NOS 11/11/2015 MICHAEL KIM MD Ot 340 MULTIPLE SCLEROSIS 11/11/2015 MICHAEL KIM MD Ot 401.9 HYPERTENSION NOS 11/11/2015 GELLENDER , EMELI Ortega Ot 599.0 URIN TRACT INFECTION NOS 11/11/2015 BOOLENDER EMELI Ot 789.02 ABDOMINAL PAIN, LEFT UPPER QUADRANT 11/11/2015 GELLENDER DO, EMELI Vivas Ot 793.4 NOSP (ABN) FINDINGS ON RADIOLOGICAL OT 11/13/2015 GELLENDER EMELI Ot B95.62 METHICILLIN RESIS STAPH INFCT CAUSING DI 11/13/2015 GELLENDER DO, EMELI Vivas Ot F32.9 MAJOR DEPRESSIVE DISORDER, SINGLE EPISOD 11/13/2015 GELLENDER DOEMELI Ot G35 MULTIPLE SCLEROSIS 11/13/2015 GELLENDER EMELI Ot I10 ESSENTIAL (PRIMARY) HYPERTENSION 11/13/2015 GELLENDER EMELI Ot J45.909 UNSPECIFIED ASTHMA, UNCOMPLICATED 11/13/2015 GELLENDER DOEMELI Ot K59.00 CONSTIPATION, UNSPECIFIED 11/13/2015 GELLENDER DOEMELI Ot L98.429 NON-PRESSURE CHRONIC ULCER OF BACK WITH 11/13/2015 GELLENDER DOEMELI Ot T83.51XA INFECT/INFLM REACTION DUE TO INDWELL URI 11/13/2015 GELLENDER DOEMELI Ot Z93.3 COLOSTOMY STATUS 11/13/2015 GELLENDER DOEMELI Ot Z93.51 CUTANEOUS-VESICOSTOMY STATUS 11/14/2015 GELLENDER DOEMELI Ot B37.49 OTHER UROGENITAL CANDIDIASIS 11/14/2015 GELLENDER DOEMELI Ot B95.2 ENTEROCOCCUS THE CAUSE OF DISEASES CL 11/14/2015 GELLENDER DOEMELI Ot B95.62 METHICILLIN RESIS STAPH INFCT CAUSING DI 11/14/2015 GELLENDER DO, EMELI Vivas Ot B96.5 PSEUDOMONAS (MALLEI) CAUSING DISEASES CL 11/14/2015 GELLENDER DOEMELI Ot E66.01 MORBID (SEVERE) OBESITY DUE TO EXCESS CA 11/14/2015 GELLENDER DO, EMELI Vivas Ot F32.9 MAJOR DEPRESSIVE DISORDER, SINGLE EPISOD 11/14/2015 GELLENDER DO, EMELI Vivas Ot G35 MULTIPLE SCLEROSIS 11/14/2015 GELLENDER DO, EMELI Ortega Ot G82.20 PARAPLEGIA, UNSPECIFIED 11/14/2015 GELLENDER DO, EMELI Vivas Ot I10 ESSENTIAL (PRIMARY) HYPERTENSION 11/14/2015 GELLENDER DO, EMELI Vivas Ot J45.909 UNSPECIFIED ASTHMA, UNCOMPLICATED 11/14/2015 GELLENDER DO, EMELI Vivas Ot K59.00 CONSTIPATION, UNSPECIFIED 11/14/2015 GELLENDER DO, EMELI Ortega Ot L89.154 PRESSURE ULCER OF SACRAL REGION, STAGE 4 11/14/2015 GELLENDER DO, EMELI Ortega Ot R32 UNSPECIFIED URINARY INCONTINENCE 11/14/2015 GELLENDER DO, EMELI Ortega Ot T83.51XA INFECT/INFLM REACTION DUE TO INDWELL URI 11/14/2015 GELLENDER DO, EMELI Ortega Ot Z68.35 BODY MASS INDEX (BMI) 35.0-35.9, ADULT 11/14/2015 GELLENDER DO, EMELI Vivas Ot Z74.01 BED CONFINEMENT STATUS 11/14/2015 GELLENDER DO, EMELI Vivas Ot Z93.3 COLOSTOMY STATUS 11/14/2015 GELLENDER DO, EMELI Vivas Ot Z93.51 CUTANEOUS-VESICOSTOMY STATUS 01/07/2016 GELLENDER DO, EMELI Ortega Ot 599.0 URIN TRACT INFECTION NOS 01/07/2016 GELLENDER DO, EMELI Vivas Ot V58.62 ENCOUNT FOR LONG-TERM(CURRENT) USE OF AN 04/08/2016 GELLENDER DO, EMELI Ortega Ot 599.0 URIN TRACT INFECTION NOS 04/08/2016 GELLENDER DO, EMELI Vivas Ot V58.62 ENCOUNT FOR LONG-TERM(CURRENT) USE OF AN 04/21/2016 DANIEL RING, MINESH Mckeon Ot G35 MULTIPLE SCLEROSIS 04/21/2016 DANIEL RING, MINESH Mckeon Ot G82.21 PARAPLEGIA, COMPLETE 04/21/2016 DANIEL RING, MINESH Mckeon Ot 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, STAGE 3 09/06/2016 GELLENDER DO, EMELI Vivas Ot 599.0 URIN TRACT INFECTION NOS 09/06/2016 GELLENDER DO, EMELI Vivas Ot V58.62 ENCOUNT FOR LONG-TERM(CURRENT) USE OF AN 09/18/2016 GELLENDER DO, EMELI Vivas Ot A41.4 SEPSIS DUE TO ANAEROBES 09/18/2016 [facility], EMELI Vivas Ot A41.81 SEPSIS DUE TO ENTEROCOCCUS 09/18/2016 [facility] , EMELI Vivas Ot E66.9 OBESITY, UNSPECIFIED 09/18/2016 [facility] Vivas Ot F32.9 MAJOR DEPRESSIVE DISORDER, SINGLE EPISOD 09/18/2016 [facility] EMELI Vivas Ot G35 MULTIPLE SCLEROSIS 09/18/2016 [facility] , EMELI Vivas Ot G82.20 PARAPLEGIA, UNSPECIFIED 09/18/2016 [facility] , EMELI Vivas Ot I10 ESSENTIAL (PRIMARY) HYPERTENSION 09/18/2016 [facility] EM[facility] Vivas Ot J45.909 UNSPECIFIED ASTHMA, UNCOMPLICATED 09/18/2016 [facility] , EMELI Vivas Ot L89.154 PRESSURE ULCER OF SACRAL REGION, STAGE 4 09/18/2016 BARNEY ESPINOZAEMELI Ot N39.0 URINARY TRACT INFECTION, SITE NOT SPECIF 09/18/2016 BARNEY ESPINOZAEMELI Ot T83.510A I/I REACT D/T CYSTOSTOMY CATHETER, INITI 09/18/2016 BARNEY ESPINOZAEMELI Ot Z68.26 BODY MASS INDEX (BMI) 26.0-26.9, ADULT 09/18/2016 BARNEY ESPINOZAEMELI Ot Z87.891 PERSONAL HISTORY OF NICOTINE DEPENDENCE 09/18/2016 BARNEY ESPINOZAEMELI Ot Z93.3 COLOSTOMY STATUS 10/06/2016 BARNEY ESPINOZAEMELI Ot 599.0 URIN TRACT INFECTION NOS 10/06/2016 [facility] V58.62 ENCOUNT FOR LONG-TERM(CURRENT) USE OF AN Procedures Code Description Performed By Performed On [id number] 09/19/2015 Results Test Result Range Complete blood count (CBC) with automated white blood cell (WBC) differential - 09/14/16 17:10 Blood leukocytes automated count (number/volume) 18.8 10*3/ uL 4.3-11.0 Blood erythrocytes automated count (number/volume) 4.66 10*6 /uL 4.35-5.85 Venous blood hemoglobin measurement (mass/volume) 11.2 g/dL 11.5-16.0 Blood hematocrit (volume fraction) 36 % 35-52 Automated erythrocyte mean corpuscular volume 77 [foz_us] 80-99 Automated erythrocyte mean corpuscular hemoglobin (mass per erythrocyte) 24 pg 25-34 Automated erythrocyte mean corpuscular hemoglobin concentration measurement ( mass/volume) 31 g/dL 32-36 Automated erythrocyte distribution width ratio 17.7 % 10.0-14.5 Automated blood platelet count (count/volume) 388 10*3/uL 130-400 Automated blood platelet mean volume measurement 9.7 [[facility]_us ] 7.4-10.4 Automated blood neutrophils/100 leukocytes 94 % 42-75 Automated blood lymphocytes/100 leukocytes 4 % 12-44 Blood monocytes/100 leukocytes 3 % 0-12 Automated blood eosinophils/100 leukocytes 0 % 0-10 Automated blood basophils/100 leukocytes 0 % 0-10 Blood neutrophils automated count (number/volume) 17.6 10*3 1.8-7.8 Blood lymphocytes automated count (number/volume) 0.7 10*3 1.0-4.0 Blood monocytes automated count (number/volume) 0.5 10*3 0.0-1.0 Automated eosinophil count 0.1 10*3/uL 0.0-0.3 Automated blood basophil count (count/volume) 0.0 10*3/uL 0.0-0.1 PT panel in platelet poor plasma by coagulation assay - 09/14/16 17:10 Prothrombin time (PT) in platelet poor plasma by coagulation assay 13.2 s 12.2-14.7 INR in platelet poor plasma or blood by coagulation assay 1.0 0.8-1.4 Activated partial thromboplastin time (aPTT) in platelet poor plasma bycoagulation assay - 09/14/16 17:10 Activated partial thromboplastin time (aPTT) in platelet poor plasma bycoagulation assay 26 s 24-35 Blood lactic acid measurement (moles/volume) - 09/14/16 17:10 Blood lactic acid measurement (moles/volume) 2.68 mmol/L 0.50-2.00 Blood manual differential performed detection - 09/14/16 17:10 Blood monocytes/100 leukocytes 1 % NRG Manual blood segmented neutrophils/100 leukocytes 86 % NRG Blood band neutrophils/100 leukocytes 4 % NRG Manual blood lymphocytes/100 leukocytes 7 % NRG Manual eosinophils/100 leukocytes in nose 1 % NRG Manual blood basophils/100 leukocytes 1 % NRG Blood anisocytosis detection by light microscopy SLIGHT NR Comprehensive metabolic panel - 09/14/16 17:10 Serum or plasma sodium measurement (moles/volume) 136 mmol/ L 135-145 Serum or plasma potassium measurement (moles/volume) 4.3 mmol/L 3.6-5.0 Serum or plasma chloride measurement (moles/volume) 105 mmol /L 98-107 Carbon dioxide 18 mmol/L 21-32 Serum or plasma anion gap determination (moles/volume) 13 mmol/L 5-14 Serum or plasma urea nitrogen measurement (mass/volume) 14 mg/dL 7-18 Serum or plasma creatinine measurement (mass/volume) 0.69 mg /dL 0.60-1.30 Serum or plasma urea nitrogen/creatinine mass ratio 20 NRG Serum or plasma creatinine measurement with calculation of estimated glomerular filtration rate > NRG Serum or plasma glucose measurement (mass/volume) 114 mg/dL 70-105 Serum or plasma calcium measurement (mass/volume) 8.7 mg/dL 8.5-10.1 Serum or plasma total bilirubin measurement (mass/volume) 0.5 mg/dL 0.1-1.0 Serum or plasma alkaline phosphatase measurement (enzymatic activity/volume) 89 U/L 40-136 Serum or plasma aspartate aminotransferase measurement (enzymatic activity/ volume) 13 U/L 5-34 Serum or plasma alanine aminotransferase measurement (enzymatic activity/volume ) 10 U/L 0-55 Serum or plasma protein measurement (mass/volume) 7.1 g/dL 6.4-8.2 Serum or plasma albumin measurement (mass/volume) 3.7 g/dL 3.2-4.5 Bacterial blood culture - 09/14/16 17:10 Bacterial blood culture NG NR Bacterial blood culture - 09/14/16 17:25 Bacterial blood culture NG [facility] Complete urinalysis with reflex to culture - 09/14/16 17:36 Urine color determination YELLOW NRG Urine clarity determination SLIGHTLY CLOUDY NR Urine pH measurement by test strip 8 5- 9 Specific gravity of urine by test strip 1.015 1.016-1.022 Urine protein assay by test strip, semi-quantitative 2+ NEGATIVE Urine glucose detection by automated test strip NEGATIVE NEGATIVE Erythrocytes detection in urine sediment by light microscopy 4+ NEGATIVE Urine ketones detection by automated test strip 1+ NEGATIVE Urine nitrite detection by test strip POSITIVE NEGATIVE Urine total bilirubin detection by test strip NEGATIVE NEGATIVE Urine urobilinogen measurement by automated test strip (mass/volume) NORMAL NORMAL Urine leukocyte esterase detection by dipstick 3+ NEGATIVE Automated urine sediment erythrocyte count by microscopy (number/high power field) [HPF] NRG Automated urine sediment leukocyte count by microscopy (number/high power field ) [HPF] NRG Bacteria detection in urine sediment by light microscopy LARGE NRG Crystals detection in urine sediment by light microscopy NONE NRG Casts detection in urine sediment by light microscopy NONE NRG Mucus detection in urine sediment by light microscopy NEGATIVE NRG Complete urinalysis with reflex to culture YES NRG Bacterial urine culture - 09/14/16 17:36 Bacterial urine culture [id number] NRG COLONY COUNT >100,000/ML NRG FTX;REPORTABLE SENSITIVITY REPORTED 09/16/16 16:45 [facility] Bacterial susceptibility panel - 09/14/16 17:36 Gentamicin susceptibility test by minimum inhibitory concentration S NRG Vancomycin susceptibility test by minimum inhibitory concentration 1 NRG Levofloxacin susceptibility test by minimum inhibitory concentration 1 NRG Tetracycline susceptibility test by minimum inhibitory concentration >= NRG Ampicillin susceptibility test by minimum inhibitory concentration <= NRG Nitrofurantoin susceptibility test by minimum inhibitory concentration <= NRG Linezolid susceptibility test by minimum inhibitory concentration 2 [facility] Bacterial susceptibility panel - 09/14/16 17:36 Gentamicin susceptibility test by minimum inhibitory concentration <= NRG Trimethoprim/sulfamethoxazole susceptibility test by minimum inhibitoryconcentration <= NRG Ampicillin susceptibility test by minimum inhibitory concentration R NRG Tobramycin susceptibility test by minimum inhibitory concentration <= NRG Cefazolin susceptibility test by minimum inhibitory concentration <= NRG Ceftriaxone susceptibility test by minimum inhibitory concentration <= NRG Ampicillin/sulbactam susceptibility test by minimum inhibitory concentration 4 NRG Piperacillin/tazobactam susceptibility test by minimum inhibitory concentration <= NRG Ciprofloxacin susceptibility test by minimum inhibitory concentration <= NRG Meropenem susceptibility test by minimum inhibitory concentration <= NRG Nitrofurantoin susceptibility test by minimum inhibitory concentration 64 NRG Aztreonam susceptibility test by minimum inhibitory concentration <= NRG Extended spectrum beta lactamase (ESBL) producing bacteria susceptibility test by minimum inhibitory concentration - [facility] Bacterial susceptibility panel - 09/14/16 17:36 Gentamicin susceptibility test by minimum inhibitory concentration <= NRG Trimethoprim/sulfamethoxazole susceptibility test by minimum inhibitoryconcentration <= NRG Ampicillin susceptibility test by minimum inhibitory concentration >= NRG Tobramycin susceptibility test by minimum inhibitory concentration <= NRG Cefazolin susceptibility test by minimum inhibitory concentration >= NRG Ceftriaxone susceptibility test by minimum inhibitory concentration <= NRG Ampicillin/sulbactam susceptibility test by minimum inhibitory concentration 4 NRG Piperacillin/tazobactam susceptibility test by minimum inhibitory concentration <= NRG Ciprofloxacin susceptibility test by minimum inhibitory concentration <= NRG Meropenem susceptibility test by minimum inhibitory concentration <= NRG Nitrofurantoin susceptibility test by minimum inhibitory concentration 128 NRG Aztreonam susceptibility test by minimum inhibitory concentration <= NRG Influenza virus A and B antigen detection - 09/14/16 17:38 FLU RESULT NEGATIVE FOR INFLUENZA A AND B ANTIGENS BY IA NRG Serum or plasma lactate measurement (moles/volume) - 09/14/16 19:11 Serum or plasma lactate measurement (moles/volume) 3.14 mmol /L 0.50-2.00 Blood lactic acid measurement (moles/volume) - 09/14/16 23:25 Blood lactic acid measurement (moles/volume) 2.75 mmol/L 0.50-2.00 Serum or plasma lactate measurement (moles/volume) - 09/15/16 01:28 Serum or plasma lactate measurement (moles/volume) 1.57 mmol /L 0.50-2.00 Complete blood count (CBC) with automated white blood cell (WBC) differential - 09/15/16 05:18 Blood leukocytes automated count (number/volume) 13.7 10*3/ uL 4.3-11.0 Blood erythrocytes automated count (number/volume) 3.79 10*6 /uL 4.35-5.85 Venous blood hemoglobin measurement (mass/volume) 9.2 g/dL 11.5-16.0 Blood hematocrit (volume fraction) 29 % 35-52 Automated erythrocyte mean corpuscular volume 77 [foz_us] 80-99 Automated erythrocyte mean corpuscular hemoglobin (mass per erythrocyte) 24 pg 25-34 Automated erythrocyte mean corpuscular hemoglobin concentration measurement ( mass/volume) 32 g/dL 32-36 Automated erythrocyte distribution width ratio 17.7 % 10.0-14.5 Automated blood platelet count (count/volume) 324 10*3/uL 130-400 Automated blood platelet mean volume measurement 9.7 [foz_us ] 7.4-10.4 Automated blood neutrophils/100 leukocytes 91 % 42-75 Automated blood lymphocytes/100 leukocytes 7 % 12-44 Blood monocytes/100 leukocytes 2 % 0-12 Automated blood eosinophils/100 leukocytes 0 % 0-10 Automated blood basophils/100 leukocytes 0 % 0-10 Blood neutrophils automated count (number/volume) 12.5 10*3 1.8-7.8 Blood lymphocytes automated count (number/volume) 0.9 10*3 1.0-4.0 Blood monocytes automated count (number/volume) 0.2 10*3 0.0-1.0 Automated eosinophil count 0.0 10*3/uL 0.0-0.3 Automated blood basophil count (count/volume) 0.0 10*3/uL 0.0-0.1 Blood lactic acid measurement (moles/volume) - 09/15/16 05:18 Blood lactic acid measurement (moles/volume) 1.37 mmol/L 0.50-2.00 Comprehensive metabolic panel - 09/15/16 05:18 Serum or plasma sodium measurement (moles/volume) 137 mmol/ L 135-145 Serum or plasma potassium measurement (moles/volume) 3.3 mmol/L 3.6-5.0 Serum or plasma chloride measurement (moles/volume) 109 mmol /L 98-107 Carbon dioxide 20 mmol/L 21-32 Serum or plasma anion gap determination (moles/volume) 8 mmol/L 5-14 Serum or plasma urea nitrogen measurement (mass/volume) 10 mg/dL 7-18 Serum or plasma creatinine measurement (mass/volume) 0.58 mg /dL 0.60-1.30 Serum or plasma urea nitrogen/creatinine mass ratio 17 NRG Serum or plasma creatinine measurement with calculation of estimated glomerular filtration rate > NRG Serum or plasma glucose measurement (mass/volume) 112 mg/dL 70-105 Serum or plasma calcium measurement (mass/volume) 7.7 mg/dL 8.5-10.1 Serum or plasma total bilirubin measurement (mass/volume) 0.7 mg/dL 0.1-1.0 Serum or plasma alkaline phosphatase measurement (enzymatic activity/volume) 62 U/L 40-136 Serum or plasma aspartate aminotransferase measurement (enzymatic activity/ volume) 15 U/L 5-34 Serum or plasma alanine aminotransferase measurement (enzymatic activity/volume ) 10 U/L 0-55 Serum or plasma protein measurement (mass/volume) 5.4 g/dL 6.4-8.2 Serum or plasma albumin measurement (mass/volume) 2.8 g/dL 3.2-4.5 Magnesium - 09/15/16 05:18 Magnesium 1.6 mg/dL 1.8-2.4 Complete urinalysis with reflex to culture - 09/16/16 06:45 Urine color determination YELLOW NRG Urine clarity determination CLEAR NRG Urine pH measurement by test strip 5 5- 9 Specific gravity of urine by test strip 1.025 1.016-1.022 Urine protein assay by test strip, semi-quantitative 1+ NEGATIVE Urine glucose detection by automated test strip NEGATIVE NEGATIVE Erythrocytes detection in urine sediment by light microscopy 1+ NEGATIVE Urine ketones detection by automated test strip NEGATIVE NEGATIVE Urine nitrite detection by test strip POSITIVE NEGATIVE Urine total bilirubin detection by test strip NEGATIVE NEGATIVE Urine urobilinogen measurement by automated test strip (mass/volume) NORMAL NORMAL Urine leukocyte esterase detection by dipstick 3+ NEGATIVE Automated urine sediment erythrocyte count by microscopy (number/high power field) [HPF] NRG Automated urine sediment leukocyte count by microscopy (number/high power field ) [HPF] NRG Bacteria detection in urine sediment by light microscopy MODERATE NRG Squamous epithelial cells detection in urine sediment by light microscopy 10-25 NRG Crystals detection in urine sediment by light microscopy NONE NRG Casts detection in urine sediment by light microscopy NONE NRG Mucus detection in urine sediment by light microscopy NEGATIVE NRG Complete urinalysis with reflex to culture YES NRG Bacterial urine culture - 09/16/16 06:45 Bacterial urine culture [id number] NRG COLONY COUNT <10,000 NRG FTX;REPORT[place] SENSITIVITY [place] 0939, 17 NRG Bacterial susceptibility panel - 09/16/16 06:45 Gentamicin susceptibility test by minimum inhibitory concentration S NRG Vancomycin susceptibility test by minimum inhibitory concentration <= NRG Levofloxacin susceptibility test by minimum inhibitory concentration 0.5 NRG Tetracycline susceptibility test by minimum inhibitory concentration >= NRG Ampicillin susceptibility test by minimum inhibitory concentration <= NRG Nitrofurantoin susceptibility test by minimum inhibitory concentration <= NRG Linezolid susceptibility test by minimum inhibitory concentration 1 NRG Complete blood count (CBC) with automated white blood cell (WBC) differential - 09/16/16 07:05 Blood leukocytes automated count (number/volume) 7.0 10*3/ uL 4.3-11.0 Blood erythrocytes automated count (number/volume) 4.04 10*6 /uL 4.35-5.85 Venous blood hemoglobin measurement (mass/volume) 9.7 g/dL 11.5-16.0 Blood hematocrit (volume fraction) 32 % 35-52 Automated erythrocyte mean corpuscular volume 78 [foz_us] 80-99 Automated erythrocyte mean corpuscular hemoglobin (mass per erythrocyte) 24 pg 25-34 Automated erythrocyte mean corpuscular hemoglobin concentration measurement ( mass/volume) 31 g/dL 32-36 Automated erythrocyte distribution width ratio 17.8 % 10.0-14.5 Automated blood platelet count (count/volume) 312 10*3/uL 130-400 Automated blood platelet mean volume measurement 9.9 [foz_us ] 7.4-10.4 Automated blood neutrophils/100 leukocytes 76 % 42-75 Automated blood lymphocytes/100 leukocytes 15 % 12-44 Blood monocytes/100 leukocytes 5 % 0-12 Automated blood eosinophils/100 leukocytes 4 % 0-10 Automated blood basophils/100 leukocytes 0 % 0-10 Blood neutrophils automated count (number/volume) 5.3 10*3 1.8-7.8 Blood lymphocytes automated count (number/volume) 1.1 10*3 1.0-4.0 Blood monocytes automated count (number/volume) 0.3 10*3 0.0-1.0 Automated eosinophil count 0.3 10*3/uL 0.0-0.3 Automated blood basophil count (count/volume) 0.0 10*3/uL 0.0-0.1 Whole blood basic metabolic panel - 09/16/16 07:05 Serum or plasma sodium measurement (moles/volume) 139 mmol/ L 135-145 Serum or plasma potassium measurement (moles/volume) 3.6 mmol/L 3.6-5.0 Serum or plasma chloride measurement (moles/volume) 113 mmol /L 98-107 Carbon dioxide 17 mmol/L 21-32 Serum or plasma anion gap determination (moles/volume) 9 mmol/L 5-14 Serum or plasma urea nitrogen measurement (mass/volume) 8 mg /dL 7-18 Serum or plasma creatinine measurement (mass/volume) 0.58 mg /dL 0.60-1.30 Serum or plasma urea nitrogen/creatinine mass ratio 14 NRG Serum or plasma creatinine measurement with calculation of estimated glomerular filtration rate > NRG Serum or plasma glucose measurement (mass/volume) 107 mg/dL 70-105 Serum or plasma calcium measurement (mass/volume) 7.9 mg/dL 8.5-10.1 Complete blood count (CBC) with automated white blood cell (WBC) differential - 09/17/16 05:59 Blood leukocytes automated count (number/volume) 5.4 10*3/ uL 4.3-11.0 Blood erythrocytes automated count (number/volume) 3.84 10*6 /uL 4.35-5.85 Venous blood hemoglobin measurement (mass/volume) 9.0 g/dL 11.5-16.0 Blood hematocrit (volume fraction) 30 % 35-52 Automated erythrocyte mean corpuscular volume 78 [foz_us] 80-99 Automated erythrocyte mean corpuscular hemoglobin (mass per erythrocyte) 23 pg 25-34 Automated erythrocyte mean corpuscular hemoglobin concentration measurement ( mass/volume) 30 g/dL 32-36 Automated erythrocyte distribution width ratio 17.6 % 10.0-14.5 Automated blood platelet count (count/volume) 323 10*3/uL 130-400 Automated blood platelet mean volume measurement 10.0 [foz_ us] 7.4-10.4 Automated blood neutrophils/100 leukocytes 63 % 42-75 Automated blood lymphocytes/100 leukocytes 26 % 12-44 Blood monocytes/100 leukocytes 6 % 0-12 Automated blood eosinophils/100 leukocytes 5 % 0-10 Automated blood basophils/100 leukocytes 0 % 0-10 Blood neutrophils automated count (number/volume) 3.4 10*3 1.8-7.8 Blood lymphocytes automated count (number/volume) 1.4 10*3 1.0-4.0 Blood monocytes automated count (number/volume) 0.3 10*3 0.0-1.0 Automated eosinophil count 0.3 10*3/uL 0.0-0.3 Automated blood basophil count (count/volume) 0.0 10*3/uL 0.0-0.1 Whole blood basic metabolic panel - 09/17/16 05:59 Serum or plasma sodium measurement (moles/volume) 140 mmol/ L 135-145 Serum or plasma potassium measurement (moles/volume) 3.3 mmol/L 3.6-5.0 Serum or plasma chloride measurement (moles/volume) 111 mmol /L 98-107 Carbon dioxide 22 mmol/L 21-32 Serum or plasma anion gap determination (moles/volume) 7 mmol/L 5-14 Serum or plasma urea nitrogen measurement (mass/volume) 6 mg /dL 7-18 Serum or plasma creatinine measurement (mass/volume) 0.53 mg /dL 0.60-1.30 Serum or plasma urea nitrogen/creatinine mass ratio 11 NRG Serum or plasma creatinine measurement with calculation of estimated glomerular filtration rate > NRG Serum or plasma glucose measurement (mass/volume) 106 mg/dL 70-105 Serum or plasma calcium measurement (mass/volume) 7.8 mg/dL 8.5-10.1 Complete urinalysis with reflex to culture - 09/17/16 21:30 Urine color determination YELLOW NRG Urine clarity determination VERY CLOUDY NRG Urine pH measurement by test strip 7 5- 9 Specific gravity of urine by test strip 1.005 1.016-1.022 Urine protein assay by test strip, semi-quantitative NEGATIVE NEGATIVE Urine glucose detection by automated test strip NEGATIVE NEGATIVE Erythrocytes detection in urine sediment by light microscopy 1+ NEGATIVE Urine ketones detection by automated test strip NEGATIVE NEGATIVE Urine nitrite detection by test strip POSITIVE NEGATIVE Urine total bilirubin detection by test strip NEGATIVE NEGATIVE Urine urobilinogen measurement by automated test strip (mass/volume) NORMAL NORMAL Urine leukocyte esterase detection by dipstick 2+ NEGATIVE Automated urine sediment erythrocyte count by microscopy (number/high power field) [HPF] NRG Automated urine sediment leukocyte count by microscopy (number/high power field ) [HPF] NRG Bacteria detection in urine sediment by light microscopy FEW NRG Squamous epithelial cells detection in urine sediment by light microscopy 5-10 NRG Crystals detection in urine sediment by light microscopy PRESENT NRG Casts detection in urine sediment by light microscopy NONE NRG Mucus detection in urine sediment by light microscopy NEGATIVE NRG Complete urinalysis with reflex to culture YES NRG Amorphous sediment detection in urine sediment by light microscopy LARGE SALVADOR URATES NRG Bacterial urine culture - 09/17/16 21:30 Bacterial urine culture [id number] NRG COLONY COUNT >100,000/ML NRG FTX;REPORTABLE SENSITIVITY REPORTED AT 0745, 4-17 NRG URINE CULTURE RESULTS PLUS NRG Bacterial susceptibility panel - 09/17/16 21:30 Gentamicin susceptibility test by minimum inhibitory concentration S NRG Vancomycin susceptibility test by minimum inhibitory concentration 1 NRG Levofloxacin susceptibility test by minimum inhibitory concentration 1 NRG Tetracycline susceptibility test by minimum inhibitory concentration >= NRG Ampicillin susceptibility test by minimum inhibitory concentration <= NRG Nitrofurantoin susceptibility test by minimum inhibitory concentration <= NRG Linezolid susceptibility test by minimum inhibitory concentration 2 NRG Complete blood count (CBC) with automated white blood cell (WBC) differential - 09/18/16 06:20 Blood leukocytes automated count (number/volume) 3.8 10*3/ uL 4.3-11.0 Blood erythrocytes automated count (number/volume) 4.06 10*6 /uL 4.35-5.85 Venous blood hemoglobin measurement (mass/volume) 9.6 g/dL 11.5-16.0 Blood hematocrit (volume fraction) 31 % 35-52 Automated erythrocyte mean corpuscular volume 77 [foz_us] 80-99 Automated erythrocyte mean corpuscular hemoglobin (mass per erythrocyte) 24 pg 25-34 Automated erythrocyte mean corpuscular hemoglobin concentration measurement ( mass/volume) 31 g/dL 32-36 Automated erythrocyte distribution width ratio 17.5 % 10.0-14.5 Automated blood platelet count (count/volume) 381 10*3/uL 130-400 Automated blood platelet mean volume measurement 9.5 [foz_us ] 7.4-10.4 Automated blood neutrophils/100 leukocytes 47 % 42-75 Automated blood lymphocytes/100 leukocytes 39 % 12-44 Blood monocytes/100 leukocytes 6 % 0-12 Automated blood eosinophils/100 leukocytes 7 % 0-10 Automated blood basophils/100 leukocytes 1 % 0-10 Blood neutrophils automated count (number/volume) 1.8 10*3 1.8-7.8 Blood lymphocytes automated count (number/volume) 1.5 10*3 1.0-4.0 Blood monocytes automated count (number/volume) 0.2 10*3 0.0-1.0 Automated eosinophil count 0.3 10*3/uL 0.0-0.3 Automated blood basophil count (count/volume) 0.0 10*3/uL 0.0-0.1 Whole blood basic metabolic panel - 09/18/16 06:20 Serum or plasma sodium measurement (moles/volume) 140 mmol/ L 135-145 Serum or plasma potassium measurement (moles/volume) 3.2 mmol/L 3.6-5.0 Serum or plasma chloride measurement (moles/volume) 107 mmol /L 98-107 Carbon dioxide 23 mmol/L 21-32 Serum or plasma anion gap determination (moles/volume) 10 mmol/L 5-14 Serum or plasma urea nitrogen measurement (mass/volume) 5 mg /dL 7-18 Serum or plasma creatinine measurement (mass/volume) 0.56 mg /dL 0.60-1.30 Serum or plasma urea nitrogen/creatinine mass ratio 9 NRG Serum or plasma creatinine measurement with calculation of estimated glomerular filtration rate > NRG Serum or plasma glucose measurement (mass/volume) 86 mg/dL 70-105 Serum or plasma calcium measurement (mass/volume) 8.3 mg/dL 8.5-10.1 Encounters ACCT No. Visit Date/Time Discharge Status Pt. Type Provider Facility Loc./Unit Complaint [id number] 09/14/2016 19:35:00 2016 10:51:00 DIS Inpatient EMELI CORLEY DO Via [address] SEVERE SEPSIS, URINARY TRACT INFECTION [id number] 04/21/2016 09:46:00 2015 16:00:00 DIS Outpatient MINESH SANCHEZ MD [facility] [id number] 11/11/2015 22:33:00 2015 16:40:00 DIS Inpatient EMELI CORLEY DO Via [address] [id number] 09/19/2015 15:57:00 2015 11:45:00 DIS Inpatient EMELI CORLEY DO Via [address] [id number] 11/09/2014 13:19:00 2014 23:59:59 CLS Preadmit MINESH SANCHEZ MD [facility] [id number] 11/06/2014 18:02:00 2014 23:59:59 CLS Outpatient EMELI CORLEY DO [facility] [id number] 11/01/2014 23:11:00 2014 23:59:59 CLS Outpatient EMELI CORLEY DO Via [facility] [id number] 09/29/2014 10:00:00 2014 23:59:59 CLS Outpatient EMELI CORLEY DO Via [facility] [id number] 07/20/2014 08:42:00 2014 13:50:00 DIS Outpatient RAFI ASHLEY MD Via [facility] [id number] 07/13/2014 12:01:00 2014 23:59:59 CLS Outpatient RAFI ASHLEY MD Via [facility] PREOP [id number] 06/28/2014 11:15:00 2014 15:10:00 DIS Emergency ROSEMARY CARNEY Via [facility] ER [id number] 06/14/2014 09:50:00 2014 23:59:59 CLS Outpatient EMELI CORLEY DO Via [facility] [id number] 05/15/2014 00:10:00 2013 23:59:59 CLS Preadmit BARNEY EMELI ESPINOZA Via [facility] [id number] 02/17/2014 11:15:00 2013 00:01:00 DIS Outpatient EMELI CORLEY DO Via [facility] [id number] 02/22/2014 13:00:00 2013 16:50:00 DIS Outpatient BOODELLEMELI BAKER DO Via [facility] WOUNDCARE [id number] 02/13/2014 20:57:00 2013 23:59:59 CLS Outpatient BARNEY ESPINOZAEMELI Via [facility] GENTIMYCIN THERAPY, UTI [id number] 02/10/2014 12:18:00 2013 13:40:00 DIS Emergency AIDA HAMMOND APRN Via [facility] ER [id number] 02/08/2014 21:20:00 2013 23:59:59 CLS Outpatient BARNEY EMELI ESPINOZA Ortega Via [facility] [id number] 01/25/2014 08:44:00 2013 16:11:00 DIS Inpatient RAFI ASHLEY MD Via [facility] SURGICAL [id number] 01/19/2014 09:43:00 2013 23:59:59 CLS Outpatient RAFI ASHLEY MD Via [facility] PREOP [id number] 12/14/2013 12:05:00 2013 23:59:59 CLS Outpatient EMELI CORLEY DO Via [facility] RAD [id number] 11/16/2013 13:15:00 2013 14:29:00 DIS Outpatient EMELI CORLEY DO Via [facility] WOUNDCARE [id number] 11/14/2013 12:40:00 2013 23:59:59 CLS Outpatient CLIVEOLIVIA EMELI ESPINOZA Via [facility] [id number] 10/12/2013 12:52:00 2013 23:59:59 CLS Outpatient MICHAEL KIM MD Via [facility] LAB [id number] 08/23/2013 07:34:00 2013 23:59:59 CLS Outpatient [id number] 08/22/2013 15:30:00 2013 13:19:00 DIS Outpatient AYDIN ASKEW MD Via [facility] [id number] 08/09/2013 12:20:00 2013 23:59:59 CLS Outpatient EMELI CORLEY DO Via [facility] [id number] 08/01/2013 15:00:00 2013 23:59:59 CLS Outpatient CLIVEOLIVIA EMELI ESPINOZA Via [facility] [id number] 07/25/2013 12:00:00 2013 23:59:59 CLS Outpatient BOOLENDER EMELI Vivas Via [facility] [id number] 06/22/2013 12:43:00 2013 23:59:59 CLS Outpatient BOOLENOLIVIA EMELI Vivas Via [facility] RAD [id number] 06/20/2013 13:29:00 2013 23:59:59 CLS Outpatient GELLENDER DO EMELI Vivas Via [facility] RAD [id number] 06/02/2013 14:20:00 2012 23:59:59 CLS Outpatient AYDIN ASKEW MD Via [facility] [id number] 05/04/2013 13:20:00 2012 23:59:59 CLS Outpatient BOOLENDER EMELI ESPINOZA Via [facility] [id number] 04/08/2013 14:00:00 2012 23:59:59 CLS Outpatient GELLENDER EMELI ESPINOZA Via [facility] [id number] 03/29/2013 14:30:00 2012 23:59:59 CLS Outpatient BOOLENDER EMELI ESPINOZA Via [facility] [id number] 01/12/2013 12:10:00 2012 23:59:59 CLS Outpatient BOOLENDER EMELI ESPINOZA Via [facility] [id number] 11/15/2012 11:50:00 2012 23:59:59 CLS Outpatient GELLENDER EMELI ESPINOZA Via [facility] [id number] 06/28/2014 11:15:00 Document Registration [id number] 06/28/2014 11:15:00 Document Registration [id number] 06/28/2014 11:15:00 Document Registration [id number] 06/28/2014 11:14:00 Document Registration [id number] 08/19/2012 14:08:00 Document Registration [id number] 04/14/2012 11:00:00 Document Registration [id number] 03/09/2012 09:05:00 Document Registration [id number] 12/25/2011 12:15:00 Document Registration [id number] 11/24/2011 12:00:00 Document Registration [id number] 08/12/2011 12:58:00 Document Registration [id number] 08/05/2011 12:25:00 Document Registration [id number] 05/13/2011 10:45:00 Document Registration [id number] 04/30/2011 11:30:00 Document Registration [id number] 04/18/2011 10:15:00 Document Registration [id number] 02/14/2011 10:00:00 Document Registration [id number] 02/11/2011 16:36:00 Document Registration [id number] 09/26/2010 11:00:00 Document Registration [id number] 03/28/2010 13:28:00 Document Registration [id number] 01/15/2010 12:45:00 Document Registration [id number] 12/02/2009 11:27:00 Document Registration [id number] 04/13/2009 08:48:00 Document Registration [id number] 03/19/2009 12:58:00 Document Registration
== END 2016-09-18 10:51 | disposition home health service (06) | DRG 698 ==
LOC: EDUNIT# 17:03 → ER 17:04 → 4TH 19:35
PROVIDERS: ADMIT Family Medicine; ATTEND Family Medicine
DX: T83.510A Infection and inflammatory reaction due to cystostomy catheter, initial encounter (principal); A41.81 Sepsis due to Enterococcus; A41.4 Sepsis due to anaerobes; N39.0 Urinary tract infection, site not specified; L89.154 Pressure ulcer of sacral region, stage 4; G35 Multiple sclerosis; G82.20 Paraplegia, unspecified; J45.909 Unspecified asthma, uncomplicated; E66.9 Obesity, unspecified; I10 Essential (primary) hypertension; F32.9 Major depressive disorder, single episode, unspecified; Z87.891 Personal history of nicotine dependence; Z93.3 Colostomy status; Z68.26 Body mass index [BMI] 26.0-26.9, adult
CPT/HCPCS: 36415; 71010; 74177; 80048; 80053; 81000; 83605; 83735; 85007; 85025; 85027; 85610; 85730; 87040; 87077; 87088; 87186; 87804; 96361; 96365; 96367

== ENCOUNTER 2016-10-20 10:19 | Emergency (ER) | payer MEDICARE, MEDICAID ==
[~2016-10-20] VITALS: Ht 175.3 cm; Wt 90.7 kg
[~2016-10-20 10:19] MED LIST changes: +AMOX-355 PO; +AQUACEL TOP; +METO50TA2 PO
[2016-10-20] MEDS ORDERED: NS IV 500 ML 500 ML IV ONE (10:45)
[2016-10-20 10:54] LABS: EOSINOPHILS % (AUTO) 9 % (0-10); LYMPHOCYTES % (AUTO) 30 % (12-44); MEAN CORPUSCULAR HEMOGLOBIN 23 PG (25-34); MEAN CORPUSCULAR HGB CONC 30 G/DL (32-36); MEAN CORPUSCULAR VOLUME 77 FL (80-99); MEAN PLATELET VOLUME 9.9 FL (7.4-10.4); MONOCYTES % (AUTO) 8 % (0-12); NEUTROPHILS % (AUTO) 53 % (42-75); PLATELET COUNT 372 10^3/uL (130-400); RED CELL DISTRIBUTION WIDTH 18.6 % (10.0-14.5); WHITE BLOOD COUNT 4.8 10^3/uL (4.3-11.0)
[2016-10-20 10:55] LABS: BASOPHILS # (AUTO) 0.1 10^3/uL (0.0-0.1); BASOPHILS % (AUTO) 1 % (0-10); EOSINOPHILS # (AUTO) 0.4 10^3/uL (0.0-0.3); LYMPHOCYTES # (AUTO) 1.4 X 10^3 (1.0-4.0); MONOCYTES # (AUTO) 0.4 X 10^3 (0.0-1.0); NEUTROPHILS # (AUTO) 2.6 X 10^3 (1.8-7.8)
--- NOTE | 2016-10-20 11:11 | ED General ---
General Chief Complaint: General Problems/Pain Stated Complaint: FEVER Nursing Triage Note: PT ARRIVED PER EMS, PT STATES HAS BEEN FALLING ASLEEP ALOT, FATIGUED,WEAKNESS, PT SENT TO ED BY DR BLACK OFFICE Nursing Sepsis Screen: No Definite Risk Source of Information: Patient, EMS Exam Limitations: No Limitations (AIDA SCHWARTZ APRN) History of Present Illness Time Seen by Provider: 11:10 Initial Comments To ER per EMS from Dr. Corley's office with reports of excessive fatigue over the past 3 days. She states that her partner has noticed her to fall asleep during conversation begins snoring. Patient has multiple sclerosis with an indwelling George catheter and a colostomy bag. She is wheelchair bound. She states that she doesn't feel bad. She denies fevers. Most recent George catheter change was about 3 weeks ago. Timing/Duration: 2-3 Days Severity: Moderate Associated Systoms: No Chest Pain, No Diaphoresis, No Headaches, Malaise, No Nausea/Vomiting (AIDA SCHWARTZ APRN) Allergies and Home Medications Allergies Coded Allergies: interferon beta (Verified Allergy, Unknown, 07/25/08) naproxen (Verified Allergy, Unknown, 07/25/08) Home Medications Amitriptyline HCl 50 Mg Tablet, 50 MG PO HS, (Reported) Amoxicillin/Potassium Clav 1 Each Tablet, 1 EACH PO BID, #8 Prescribed by: IRINEO FUNK on 09/18/16 0805 Baclofen 20 Mg Tablet, 20 MG PO QID, (Reported) Metoprolol Tartrate 50 Mg Tablet, 50 MG PO DAILY, (Reported) Montelukast Sodium 10 Mg Tablet, 10 MG PO DAILY, (Reported) Nystatin 60 Gm Powder, TOP BID, (Reported) Sennosides/Docusate Sodium 1 Each Tablet, 1 TAB PO DAILY PRN for CONSTIPATION, ( Reported) Venlafaxine HCl 150 Mg Cap.er.24h, 150 MG PO DAILY, (Reported) [Aquacel] , TOP UD, (Reported) CLEAN WOUND WITH NS AND APPLY AQUACEL. APPLY NS TO WOUND BED IF DRY. COVER WITH SUPER ABSORBENT DRESSING. Constitutional: see HPI, No chills, No fever EENTM: see HPI Respiratory: no symptoms reported Cardiovascular: no symptoms reported Genitourinary: no symptoms reported Musculoskeletal: no symptoms reported Skin: no symptoms reported Psychiatric/Neurological: No Symptoms Reported Hematologic/Lymphatic: No Symptoms Reported Immunological/Allergic: no symptoms reported (AIDA SCHWARTZ APRN) Gastrointestinal: No abdominal pain, No nausea, No vomiting Genitourinary: see HPI, discharge (In catheter) (ANA PAULINO MD) All Other Systems Reviewed Negative Unless Noted: Yes (ANA PAULINO MD) Past Vdxwvvd-Eqzvpl-[place] Hx Patient Social History Alcohol Use: Denies Use Recreational Drug Use: No Smoking Status: Former Smoker Type Used: Cigarettes 2nd Hand Smoke Exposure: Yes Recent Foreign Travel: No Contact w/Someone Who Travel: No Recent Infectious Disease Expo: No Recent Hopitalizations: Yes (AIDA SCHWARTZ APRN) Immunizations Up To Date Tetanus Booster (TDap): Less than 5yrs Date of Pneumonia Vaccine: Jun 08, 2015 Date of Influenza Vaccine: Mar 08, 2013 (AIDA SCHWARTZ APRN) Seasonal Allergies Seasonal Allergies: No (AIDA SCHWARTZ APRN) Surgeries HX Surgeries: Yes (teeth, suprapubic cath, COLOSTOMY) (AIDA SCHWARTZ APRN) Respiratory Hx Respiratory Disorders: Yes Respiratory Disorders: Asthma (AIDA SCHWARTZ APRN) Cardiovascular Hx Cardiac Disorders: Yes Cardiac Disorders: Hypertension (AIDA SCHWARTZ APRN) Neurological Hx Neurological Disorders: Yes (secondary progressive) Neurological Disorders: Multiple Sclerosis (AIDA SCHWARTZ APRN) Reproductive System Hx Reproductive Disorders: No Sexually Transmitted Disease: No HIV/AIDS: No Female Reproductive Disorders: Denies (AIDA SCHWARTZ APRN) Genitourinary Hx Genitourinary Disorders: Yes (suprapubic cathether) Genitourinary Disorders: Bladder Infection, UTI-Chronic (AIDA SCHWARTZ APRN) Gastrointestinal Hx Gastrointestinal Disorders: Yes (COLOSTOMY) (AIDA SCHWARTZ APRN) Musculoskeletal Hx Musculoskeletal Disorders: Yes (DECREASED MOVEMENT DUE TO MS) (AIDA SCHWARTZ APRN) Endocrine Hx Endocrine Disorders: No (AIDA SCHWARTZ APRN) HEENT HX ENT Disorders: Yes (GLASSES) Hearing Impairment: Denies (AIDA SCHWARTZ APRN) Cancer Hx Cancer: No (AIDA SCHWARTZ APRN) Psychosocial Hx Psychiatric Problems: Yes Behavioral Health Disorders: Depression (AIDA SCHWARTZ APRN) Integumentary HX Skin/Integumentary Disorder: No (AIDA SCHWARTZ APRN) Blood Transfusions Hx Blood Disorders: No Adverse Reaction to a Blood Tr: No (AIDA SCHWARTZ APRN) Family Medical History Significant Family History: Cancer Family Medial History: Cancer 03 MOTHER (breast ca) (breast--grandma of breast cancer) (AIDA SCHWARTZ APRN) Family Medial History: Cancer 03 MOTHER (breast ca) (breast--grandma of breast cancer) (ANA PAULINO MD) Physical Exam Vital Signs Vital Sign - Last 12Hours 10/20/16 10:20 Temp 97.9 Pulse 69 Resp 13 B/P (MAP) 111/75 Pulse Ox 99 (ANA PAULINO MD) Vital Signs Capillary Refill : Less Than 3 Seconds (AIDA SCHWARTZ APRN) General Appearance: No Apparent Distress, WD/WN, Chronically ill, Obese Eyes: Bilateral Eye EOMI, Bilateral Eye Normal Inspection, Bilateral Eye PERRL HEENT: PERRL/EOMI, TMs Normal Neck: Full Range of Motion, Normal Inspection Respiratory: Normal Breath Sounds, No Accessory Muscle Use, No Respiratory Distress Cardiovascular: Regular Rate, Rhythm, Normal Peripheral Pulses Gastrointestinal: Normal Bowel Sounds, Non Tender, Soft Extremity: Normal Capillary Refill Neurologic/Psychiatric: Alert, Oriented x3, No Motor/Sensory Deficits Skin: Normal Color, Warm/Dry (AIDA SCHWARTZ APRN) Back: Normal Inspection, No CVA Tenderness, No Vertebral Tenderness Skin: Other (sacral wound covered and not evaluated but patient reports it is smaller.) (ANA PAULINO MD) Focused Exam Lactic Acid Level Laboratory Tests Test 10/20/16 10:33 Lactic Acid Level 1.04 MMOL/L (0.50-2.00) (ANA PAULINO MD) Progress/Results/Core Measures Results/Orders Lab Results Laboratory Tests Test 10/20/16 10:33 Range/Units White Blood Count 4.8 4.3-11.0 10^3/uL Red Blood Count 4.70 4.35-5.85 10^6/uL Hemoglobin 10.8 L 11.5-16.0 G/DL Hematocrit 36 35-52 % Mean Corpuscular Volume 77 L 80-99 FL Mean Corpuscular Hemoglobin 23 L 25-34 PG Mean Corpuscular Hemoglobin Concent 30 L 32-36 G/DL Red Cell Distribution Width 18.6 H 10.0-14.5 % Platelet Count 372 130-400 10^3/uL Mean Platelet Volume 9.9 7.4-10.4 FL Neutrophils (%) (Auto) 53 42-75 % Lymphocytes (%) (Auto) 30 12-44 % Monocytes (%) (Auto) 8 0-12 % Eosinophils (%) (Auto) 9 0-10 % Basophils (%) (Auto) 1 0-10 % Neutrophils # (Auto) 2.6 1.8-7.8 X 10^3 Lymphocytes # (Auto) 1.4 1.0-4.0 X 10^3 Monocytes # (Auto) 0.4 0.0-1.0 X 10^3 Eosinophils # (Auto) 0.4 H 0.0-0.3 10^3/uL Basophils # (Auto) 0.1 0.0-0.1 10^3/uL Lactic Acid Level 1.04 0.50-2.00 MMOL/L (ANA PAULINO MD) My Orders Orders - ANA PAULINO MD Cbc With Automated Diff (10/20/16 10:45) Comprehensive Metabolic Panel (10/20/16 10:45) Hs C Reactive Protein (10/20/16 10:45) Magnesium (10/20/16 10:45) Ua Culture If Indicated (10/20/16 10:45) Blood Culture (10/20/16 10:45) Saline Lock/Iv-Start (10/20/16 10:45) Ns Iv 500 Ml (Sodium Chloride 0.9%) (10/20/16 10:45) Lactic Acid Analyzer (10/20/16 10:45) (ANA PAULINO MD) Vital Signs/I&O Vital Sign - Last 12Hours 10/20/16 10:20 Temp 97.9 Pulse 69 Resp 13 B/P (MAP) 111/75 Pulse Ox 99 (ANA PAULINO MD) Blood Pressure Mean: 87 Progress Note : Progress Note I have seen and evaluated the patient and agree with above except as indicated. I have directed the plan of care. Patient is here with increasing tiredness over the past few days. She does report increased sediment in her catheter. Last catheter change was 3 weeks ago. This is a suprapubic catheter. Denies fever or chills or vomiting or diarrhea. She does have colostomy bag well. She has surgical wound that is currently under wound care treatment and she gets treatment every other day. She reports that this is much improved and her last nursing report is much better. IV, labs, UA, blood cultures and lactic acid ordered. Normal saline 500 mL bolus. Monitor patient. Patient seen with Aida Schwartz APRN (ANA PAULINO MD) Departure Communication Progress Notes Historically urine samples of showing enterococcus faecalis sensitive to Levaquin so we will use this in the outpatient setting. (AIDA SCHWARTZ APRN) Impression Impression: Primary Impression: Urinary tract infection Disposition: HOME, SELF-CARE Condition: Stable Departure-Patient Inst. Decision time for Depature: 12:28 (AIDA SCHWARTZ APRN) Referrals: EMELI CORLEY DO (PCP/Family) Primary Care Physician Patient Instructions: Urinary Tract Infection, Adult (DC) Add. Discharge Instructions: 1. Return to ER for any concerns 2. Antibiotics as directed. Start them today. 3. All discharge instructions reviewed with patient and/or family. Voiced understanding. Scripts Levofloxacin (Levaquin) 750 Mg Tablet 750 MG PO DAILY for 5 Days, #5 TAB Prov: AIDA SCHWARTZ APRN 10/20/16 Copy Copies To 1: EMELI CORLEY PETER J APRN October 20, 2016 11:11 ANA PAULINO MD October 20, 2016 11:16
[2016-10-20 11:20] LABS: ALANINE AMINOTRANSFERASE 11 U/L (0-55); ALBUMIN 3.6 G/DL (3.2-4.5); ANION GAP 6 MMOL/L (5-14); ASPARTATE AMINO TRANSFERASE 12 U/L (5-34); BILIRUBIN,TOTAL 0.3 MG/DL (0.1-1.0); BLOOD UREA NITROGEN 13 MG/DL (7-18); BUN/CREATININE RATIO 19; CALCIUM 8.9 MG/DL (8.5-10.1); CARBON DIOXIDE 27 MMOL/L (21-32); CHLORIDE 106 MMOL/L (98-107); CREATININE SERUM 0.68 MG/DL (0.60-1.30); GFR ESTIMATED > 60; GLUCOSE 77 MG/DL (70-105); POTASSIUM 3.9 MMOL/L (3.6-5.0); SODIUM 139 MMOL/L (135-145); hs C REACTIVE PROTEIN 2.42 MG/DL (0.00-0.50)
[2016-10-20 11:45] LABS: ALCOHOL < 10 MG/DL (<10); THYROID STIMULATING HORMONE 1.76 UIU/ML (0.35-4.94)
[2016-10-20 11:54] LABS: BILIRUBIN,URINE NEGATIVE (NEGATIVE); KETONES,URINE NEGATIVE (NEGATIVE); LEUKOCYTE ESTERASE ,URINE 3+ (NEGATIVE); NITRITE,URINE POSITIVE (NEGATIVE); PH,URINE 8 (5-9); PROTEIN,URINE 2+ (NEGATIVE); UROBILINOGEN,URINE NORMAL (NORMAL)
[2016-10-20 12:21] LABS: TRIPLE PHOSPHATE CRYSTAL,UR MODERATE /LPF; WBC,URINE 25-50 /HPF
[2016-10-20 12:22] LABS: GRANULAR CASTS,URINE RARE /LPF
[2016-10-20] MEDS ORDERED: LEVO750T9 PO (12:29)
[2016-10-20] MEDS ORDERED: cefTRIAXone INJECTION 1,000 MG in NS (IVPB) 50 ML IV ONE (12:30)
[2016-10-20 12:52] VITALS: BP 107/73
== END 2016-10-20 13:12 | disposition home or self-care (01) ==
LOC: EDUNIT# 10:19 → ER 10:20
DX: N39.0 Urinary tract infection, site not specified (principal); G35 Multiple sclerosis; Z79.899 Other long term (current) drug therapy; Z93.3 Colostomy status; Z96.0 Presence of urogenital implants; Z87.891 Personal history of nicotine dependence; Z99.3 Dependence on wheelchair
CPT/HCPCS: 36415; 51702; 80053; 80306; 80320; 81000; 83605; 83735; 84443; 85025; 86141; 87040; 87077; 87088; 96361; 96365

== ENCOUNTER 2017-01-02 09:00 | Inpatient (IN) | payer MEDICARE, MEDICAID ==
[~2017-01-02] VITALS: Ht 167.6 cm; Wt 125.3 kg
[~2017-01-02 09:00] MED LIST changes: +LEVO750T9 PO
[2017-01-02] MEDS ORDERED: cefTRIAXone 1 GM (ROCEPHIN) VIAL IV STA (09:24)
--- NOTE | 2017-01-02 09:24 | ED GU-Female ---
General Stated Complaint: DARK URINE Source: patient, EMS Exam Limitations: no limitations History of Present Illness Time seen by provider: 09:08 Initial Comments Patient present to ER by EMS with chief complaint of darkening urine. She also reports that her home health nurse told her to days ago that she had a growth off her labia that had a partially necrotic looking tissue. She says that this has not been noticed before then. She has MS and is unable to have any feeling or awareness of her pudendum. She has superpubic catheter and has been told by her home health nurse that she has a little bit of blood and discharge coming from the superior catheter site. She is not recently using antibiotics. She sees Dr. Stafford and Dr. Corley however she has not arranged to be seen by either one for the labial mass. She is not having any fevers chills sweats nausea vomiting pain diarrhea constipation or other worrisome symptoms. She does feel little bit out of sorts however. She has a colostomy which has been working okay. EMS placed a IV in the right antecubital space and has started 1 L bolus. She reports a family history of mother with breast cancer. She is not last time she had a Pap smear but is been several years. Allergies and Home Medications Allergies Coded Allergies: interferon beta (Verified Allergy, Unknown, 07/25/08) naproxen (Verified Allergy, Unknown, 07/25/08) Home Medications Amitriptyline HCl 50 Mg Tablet, 50 MG PO HS, (Reported) Amoxicillin/Potassium Clav 1 Each Tablet, 1 EACH PO BID, #8 Prescribed by: IRINEO FUNK on 09/18/16 0805 Baclofen 20 Mg Tablet, 20 MG PO QID, (Reported) Levofloxacin 750 Mg Tablet, 750 MG PO DAILY for 5 Days, #5 Prescribed by: AIDA HAMMOND on 10/20/16 1229 Metoprolol Tartrate 50 Mg Tablet, 50 MG PO DAILY, (Reported) Montelukast Sodium 10 Mg Tablet, 10 MG PO DAILY, (Reported) Nystatin 60 Gm Powder, TOP BID, (Reported) Sennosides/Docusate Sodium 1 Each Tablet, 1 TAB PO DAILY PRN for CONSTIPATION, ( Reported) Venlafaxine HCl 150 Mg Cap.er.24h, 150 MG PO DAILY, (Reported) [Aquacel] , TOP UD, (Reported) CLEAN WOUND WITH NS AND APPLY AQUACEL. APPLY NS TO WOUND BED IF DRY. COVER WITH SUPER ABSORBENT DRESSING. Constitutional: No chills, No diaphoresis, No fever, malaise Respiratory: No cough, No short of breath Cardiovascular: No chest pain, No syncope Gastrointestinal: No abdominal pain, No constipation, No diarrhea, No nausea, No vomiting Genitourinary: denies dysuria, pain : No Musculoskeletal: No back pain, No joint pain Skin: see HPI Psychiatric/Neurological: Denies Headache, Denies Numbness Past Launlbu-Xkznvi-Yttatu Hx Patient Social History Alcohol Use: Denies Use Recreational Drug Use: No Smoking Status: Never a Smoker Type Used: Cigarettes 2nd Hand Smoke Exposure: Yes Recent Hopitalizations: Yes Immunizations Up To Date Tetanus Booster (TDap): Less than 5yrs Date of Pneumonia Vaccine: Jun 08, 2015 Date of Influenza Vaccine: Mar 08, 2013 Seasonal Allergies Seasonal Allergies: No Surgeries HX Surgeries: Yes (teeth, suprapubic cath, COLOSTOMY) Respiratory Hx Respiratory Disorders: Yes Respiratory Disorders: Asthma Cardiovascular Hx Cardiac Disorders: Yes Cardiac Disorders: Hypertension Neurological Hx Neurological Disorders: Yes (secondary progressive) Neurological Disorders: Multiple Sclerosis Reproductive System Hx Reproductive Disorders: No Sexually Transmitted Disease: No HIV/AIDS: No Female Reproductive Disorders: Denies Genitourinary Hx Genitourinary Disorders: Yes (suprapubic cathether) Genitourinary Disorders: Bladder Infection, UTI-Chronic Gastrointestinal Hx Gastrointestinal Disorders: Yes (COLOSTOMY) Musculoskeletal Hx Musculoskeletal Disorders: Yes (DECREASED MOVEMENT DUE TO MS) Endocrine Hx Endocrine Disorders: No HEENT HX ENT Disorders: Yes (GLASSES) Hearing Impairment: Denies Cancer Hx Cancer: No Psychosocial Hx Psychiatric Problems: Yes Behavioral Health Disorders: Depression Integumentary HX Skin/Integumentary Disorder: No Blood Transfusions Hx Blood Disorders: No Adverse Reaction to a Blood Tr: No Family Medical History Significant Family History: Cancer Family Medial History: Cancer 03 MOTHER (breast ca) (breast--grandma of breast cancer) Physical Exam Vital Signs Vital Sign - Last 12Hours Capillary Refill : General Appearance: no apparent distress, obese HEENT: PERRL/EOMI, pharynx normal Cardiovascular: normal peripheral pulses, regular rate, rhythm Respiratory: chest non-tender, lungs clear Gastrointestinal: normal bowel sounds, non tender, soft, other (left lower quadrant colostomy) Pelvic: other (difficult speculum exam with white caseous discharge and malodorous. Left anterior labia minora fingerlike mass approximately 3-4 cm long by 1-1-1/2 cm wide with a 1-1/2 cm long extension that was dark blue/black in appearance. Nontender. No discharge or induration. Was not able to visualize the cervix secondary to patient's discomfort.) Extremities: no pedal edema, normal capillary refill Neurologic/Psychiatric: alert, oriented x 3 Skin: normal color, warm/dry Focused Exam Lactic Acid Level Laboratory Tests Test 01/02/17 09:30 Lactic Acid Level 1.94 MMOL/L (0.50-2.00) Progress/Results/Core Measures Results/Orders Lab Results Laboratory Tests Test 01/02/17 09:30 Range/Units White Blood Count 5.4 4.3-11.0 10^3/uL Red Blood Count 4.59 4.35-5.85 10^6/uL Hemoglobin 10.4 L 11.5-16.0 G/DL Hematocrit 35 35-52 % Mean Corpuscular Volume 76 L 80-99 FL Mean Corpuscular Hemoglobin 23 L 25-34 PG Mean Corpuscular Hemoglobin Concent 30 L 32-36 G/DL Red Cell Distribution Width 19.9 H 10.0-14.5 % Platelet Count 400 130-400 10^3/uL Mean Platelet Volume 10.1 7.4-10.4 FL Neutrophils (%) (Auto) 65 42-75 % Lymphocytes (%) (Auto) 25 12-44 % Monocytes (%) (Auto) 5 0-12 % Eosinophils (%) (Auto) 5 0-10 % Basophils (%) (Auto) 1 0-10 % Neutrophils # (Auto) 3.5 1.8-7.8 X 10^3 Lymphocytes # (Auto) 1.3 1.0-4.0 X 10^3 Monocytes # (Auto) 0.3 0.0-1.0 X 10^3 Eosinophils # (Auto) 0.3 0.0-0.3 10^3/uL Basophils # (Auto) 0.1 0.0-0.1 10^3/uL Prothrombin Time 12.9 12.2-14.7 SEC INR Comment 1.0 0.8-1.4 Activated Partial Thromboplast Time 29 24-35 SEC Urine Color YELLOW Urine Clarity VERY CLOUDY H Urine pH 7 5-9 Urine Specific [place] 1.015 L 1.016-1.022 Urine Protein 2+ H NEGATIVE Urine Glucose (UA) NEGATIVE NEGATIVE Urine Ketones NEGATIVE NEGATIVE Urine Nitrite POSITIVE H NEGATIVE Urine Bilirubin NEGATIVE NEGATIVE Urine Urobilinogen NORMAL NORMAL MG/DL Urine Leukocyte Esterase 3+ H NEGATIVE Urine RBC (Auto) 4+ H NEGATIVE Urine RBC 2-5 H /HPF Urine WBC >100 H /HPF Urine Squamous Epithelial Cells 2-5 /HPF Urine Crystals PRESENT H /LPF Urine Calcium Oxalate Crystals RARE H /LPF Urine Bacteria MODERATE H /HPF Urine Casts NONE /LPF Urine Mucus NEGATIVE /LPF Urine Culture Indicated YES Sodium Level 139 135-145 MMOL/L Potassium Level 4.1 3.6-5.0 MMOL/L Chloride Level 106 98-107 MMOL/L Carbon Dioxide Level 28 21-32 MMOL/L Anion Gap 5 5-14 MMOL/L Blood Urea Nitrogen 12 7-18 MG/DL Creatinine 0.67 0.60-1.30 MG/DL Estimat Glomerular Filtration Rate > 60 BUN/Creatinine Ratio 18 Glucose Level 114 H 70-105 MG/DL Lactic Acid Level 1.94 0.50-2.00 MMOL/L Calcium Level 8.6 8.5-10.1 MG/DL Magnesium Level 1.8 1.8-2.4 MG/DL Total Bilirubin 0.3 0.1-1.0 MG/DL Aspartate Amino Transf (AST/SGOT) 15 5-34 U/L Alanine Aminotransferase (ALT/SGPT) 19 0-55 U/L Alkaline Phosphatase 81 40-136 U/L Total Protein 6.6 6.4-8.2 GM/DL Albumin 3.4 3.2-4.5 GM/DL My Orders Orders - DIANE RAMIREZ Magnesium (01/02/17 09:24) Cbc With Automated Diff (01/02/17 09:24) Comprehensive Metabolic Panel (01/02/17 09:24) Lactic Acid Analyzer (01/02/17 09:24) Blood Culture (01/02/17:24) Sputum Culture (01/02/17 09:24) Ua Culture If Indicated (01/02/17:24) Protime With Inr (01/02/17:24) Partial Thromboplastin Time (01/02/17 09:24) Chest 1 View, Ap/Pa Only (01/02/17 09:24) O2 (01/02/17 09:24) Saline Lock/Iv-Start (01/02/17 09:24) Saline Lock/Iv-Start (01/02/17 09:24) Vital Signs Adult Sepsis Patie Q1HR (01/02/17 09:24) Ceftriaxone Injection (Rocephin Injectio (01/02/17 09:24) Remove Rings In Anticipation O (01/02/17 09:24) Ns (Ivpb) (Sodium Chloride 0.9% Ivpb Bag (01/02/17 09:39) Urine Culture (01/02/17 09:30) Medications Given in ED Current Medications Medications Dose Ordered Sig/Matthew Route Start Time Stop Time Status Last Admin Dose Admin Sodium Chloride 50 ml @ ud STK-MED ONCE .ROUTE 01/02/17 09:39 01/02/17 09:47 DC 01/02/17 10:12 50 MLS/HR Vital Signs/I&O Vital Sign - Last 12Hours 01/02/17 01/02/17 09:20 09:20 Temp 97.0 Pulse 86 Resp 16 B/P (MAP) 115/82 Pulse Ox 98 98 O2 Delivery Room Air Room Air Progress Note : Time: 09:32 Progress Note The patient came with concern of discharge from suprapubic catheter site as well as darkened urine. We will get a sepsis workup since she has MS we are unable to trust her sympathetic system. She was tachycardic on arrival however once she had rested from her transfer she was no longer tachycardic. She is afebrile. She also has the new symptom of a fingerlike mass on the labium minora which will need workup outpatient. We will touch bases with her SALES DEVELOPMENT CONSULTANT to get this moving forward. Diagnostic Imaging Diagonstic Imaging: Xray Plain Films/CT/US/NM/MRI: chest Comments No acute cardiopulmonary processes noted. NAME: [facility] REC#: [id number] PHYSICIAN: DIANE RAMIREZ MD CC: GOLDIE HI MD; DIANE RAMIREZ Page 1 of 1 RADIOLOGY REPORT VIA [place], [place] CC: GOLDIE HI MD; DIANE RAMIREZ Page 1 of 1 RADIOLOGY REPORT NAME: [facility] REC#: [id number] PT STATUS: REG ER : 1970 PHYSICIAN: DIANE RAMIREZ MD ADMIT DATE: 01/02/17/ER Signed Date of Exam: 01/02/17 CHEST 1 VIEW, AP/PA ONLY Portable upright radiograph of the chest. INDICATION: Dark urine. FINDINGS: The lungs are clear. The heart size is normal. No effusion or pneumothorax The mediastinum and go appear unremarkable. IMPRESSION: Unremarkable exam. Dictated by: Dictated on workstation # [id number] Dict: 01/02/17 1011 Trans: 01/02/17 1019 Interpreted by: GOLDIE HI MD Electronically signed by: GOLDIE HI MD 01/02/17 1019 Reviewed: Reviewed by Me Departure Communication Time/Spoke to Admitting Phy: 10:[address] Corley; discussed lab findings and physical findings including labial lesion. Lactate is nearly 2.0. He is okay with bringing her into the hospital but feels that she is been very difficult to treat as she will not go to appointments with any of the consultants and would like to get Dr. Camargo urology as well as Dr. KING gynecology to consult for this reason that she will not follow up outpatient. He knew about the lesion on her labia minora but does not recall there being any discoloration. He will see her later today. Time/Spoke to Consulting Physi: 10:44 Communication/Consulting Jel[facility] urology. He'll see the patient regarding the suprapubic catheter/UTI. Dr King; discussed labial lesion and difficulty with outpatient follow-up and he says he will see the patient today. Impression Impression: Primary Impression: Urinary tract infection Qualified Codes: N30.01 - Acute cystitis with hematuria Additional Impression: Labial lesion Disposition: ADMITTED INPATIENT Condition: Stable Decision to Admit Reason: Admit from ER (General) Decision to Admit/Date: Jan 02, 2017 Time/Decision to Admit Time: 10:37 Departure-Patient Inst. Referrals: EMELI CORLEY DO (PCP/Family) Primary Care Physician Copy Copies To 1: EMELI CROLEY DO Copies To 2: TRANG STAFFORD TITUS J Jan 02, 2017 09:23
[2017-01-02] MEDS ORDERED: NS (IVPB) 50 ML ONE (09:39)
[2017-01-02 09:49] LABS: BASOPHILS # (AUTO) 0.1 10^3/uL (0.0-0.1); BASOPHILS % (AUTO) 1 % (0-10); EOSINOPHILS # (AUTO) 0.3 10^3/uL (0.0-0.3); EOSINOPHILS % (AUTO) 5 % (0-10); LYMPHOCYTES # (AUTO) 1.3 X 10^3 (1.0-4.0); LYMPHOCYTES % (AUTO) 25 % (12-44); MEAN CORPUSCULAR HEMOGLOBIN 23 PG (25-34); MEAN CORPUSCULAR HGB CONC 30 G/DL (32-36); MEAN CORPUSCULAR VOLUME 76 FL (80-99); MEAN PLATELET VOLUME 10.1 FL (7.4-10.4); MONOCYTES # (AUTO) 0.3 X 10^3 (0.0-1.0); MONOCYTES % (AUTO) 5 % (0-12); NEUTROPHILS # (AUTO) 3.5 X 10^3 (1.8-7.8); NEUTROPHILS % (AUTO) 65 % (42-75); PLATELET COUNT 400 10^3/uL (130-400); RED BLOOD COUNT 4.59 10^6/uL (4.35-5.85); RED CELL DISTRIBUTION WIDTH 19.9 % (10.0-14.5); WHITE BLOOD COUNT 5.4 10^3/uL (4.3-11.0)
[2017-01-02 09:51] LABS: BILIRUBIN,URINE NEGATIVE (NEGATIVE); KETONES,URINE NEGATIVE (NEGATIVE); LEUKOCYTE ESTERASE ,URINE 3+ (NEGATIVE); NITRITE,URINE POSITIVE (NEGATIVE); PH,URINE 7 (5-9); PROTEIN,URINE 2+ (NEGATIVE); UROBILINOGEN,URINE NORMAL (NORMAL)
[2017-01-02 10:06] LABS: PROTHROMBIN TIME PATIENT 12.9 SEC (12.2-14.7)
[2017-01-02 10:07] LABS: CALCIUM OXALATE CRYSTALS,UR RARE /LPF; WBC,URINE >100 /HPF
[2017-01-02 10:15] LABS: ALANINE AMINOTRANSFERASE 19 U/L (0-55); ALBUMIN 3.4 GM/DL (3.2-4.5); ANION GAP 5 MMOL/L (5-14); ASPARTATE AMINO TRANSFERASE 15 U/L (5-34); BILIRUBIN,TOTAL 0.3 MG/DL (0.1-1.0); BLOOD UREA NITROGEN 12 MG/DL (7-18); BUN/CREATININE RATIO 18; CALCIUM 8.6 MG/DL (8.5-10.1); CARBON DIOXIDE 28 MMOL/L (21-32); CHLORIDE 106 MMOL/L (98-107); CREATININE SERUM 0.67 MG/DL (0.60-1.30); GFR ESTIMATED > 60; GLUCOSE 114 MG/DL (70-105); MAGNESIUM 1.8 MG/DL (1.8-2.4); POTASSIUM 4.1 MMOL/L (3.6-5.0); SODIUM 139 MMOL/L (135-145); TOTAL PROTEIN 6.6 GM/DL (6.4-8.2)
--- NOTE | 2017-01-02 10:15 | Diagnostic Imaging Report ---
Portable upright radiograph of the chest. INDICATION: Dark urine. FINDINGS: The lungs are clear. The heart size is normal. No effusion or pneumothorax The mediastinum and go appear unremarkable. IMPRESSION: Unremarkable exam. Dictated by: Dictated on workstation # [id number]
--- NOTE | 2017-01-02 12:40 | History & Physicial ---
History of Present Illness History of Present Illness Reason for visit/HPI Came to the emergency room by ambulance. Patient has multiple sclerosis and is bedbound. Patient has sore and lower back. Patient came to the emergency room due to complaint of darkening urine. Patient also has an unusual growth home labia. One side black and bleeds. Other sites swollen. Patient has a suprapubic catheter and has a little bit of blood and discharge from the superior catheter site area Patient does have a colostomy Date of Admission Jan 02, 2017 at 10:55 Time Seen by Provider: 12:30 I consulted on this patient on 01/02/17 12:34 Attending Physician Yaakov Corley DO Admitting Physician Yaakov Corley DO Consult Allergies and Home Medications Allergies Coded Allergies: interferon beta (Verified Allergy, Unknown, 07/25/08) naproxen (Verified Allergy, Unknown, 07/25/08) Home Medications Amitriptyline HCl 50 Mg Tablet, 50 MG PO HS, (Reported) Amoxicillin/Potassium Clav 1 Each Tablet, 1 EACH PO BID, #8 Prescribed by: IRINEO FUNK on 09/18/16 0805 Baclofen 20 Mg Tablet, 20 MG PO QID, (Reported) Levofloxacin 750 Mg Tablet, 750 MG PO DAILY for 5 Days, #5 Prescribed by: AIDA HAMMOND on 10/20/16 1229 Metoprolol Tartrate 50 Mg Tablet, 50 MG PO DAILY, (Reported) Montelukast Sodium 10 Mg Tablet, 10 MG PO DAILY, (Reported) Nystatin 60 Gm Powder, TOP BID, (Reported) Sennosides/Docusate Sodium 1 Each Tablet, 1 TAB PO DAILY PRN for CONSTIPATION, ( Reported) Venlafaxine HCl 150 Mg Cap.er.24h, 150 MG PO DAILY, (Reported) [Aquacel] , TOP UD, (Reported) CLEAN WOUND WITH NS AND APPLY AQUACEL. APPLY NS TO WOUND BED IF DRY. COVER WITH SUPER ABSORBENT DRESSING. Past Srsjgbi-Kxamcc-Wuhyak Hx Patient Social History Marrital Status: single Employed/Student: unemployed Alcohol Use: Denies Use Recreational Drug Use: No Smoking Status: Never a Smoker Type Used: Cigarettes 2nd Hand Smoke Exposure: Yes Recent Foreign Travel: No Contact w/other who traveled: No Recent Hopitalizations: Yes Recent Infectious Disease Expo: No Immunizations Up To Date Tetanus Booster (TDap): Less than 5yrs Date of Pneumonia Vaccine: Jun 08, 2015 Date of Influenza Vaccine: Mar 08, 2013 Seasonal Allergies Seasonal Allergies: No Surgeries HX Surgeries: Yes (teeth, suprapubic cath, COLOSTOMY) Respiratory Hx Respiratory Disorders: Yes Cardiovascular Hx Cardiovascular Disorders: Yes Cardiac Disorders: Hypertension Neurological Hx Neurological Disorders: Yes (secondary progressive) Neurological Disorders: Multiple Sclerosis Reproductive System Hx Reproductive Disorders: No Sexually Transmitted Disease: No HIV/AIDS: No Female Reproductive Disorders: Denies Genitourinary Hx Genitourinary Disorders: Yes (suprapubic cathether) Genitourinary Disorders: Bladder Infection Gastrointestinal Hx Gastrointestinal Disorders: Yes (COLOSTOMY) Musculoskeletal Hx Musculoskeletal Disorders: Yes (DECREASED MOVEMENT DUE TO MS) Endocrine Hx Endocrine Disorders: No HEENT HX ENT Disorders: Yes (GLASSES) Hearing Impairment: Denies Cancer Hx Cancer: No Psychosocial Hx Psychiatric Problems: Yes Behavioral Health Disorders: Depression Integumentary HX Skin/Integumentary Disorder: No Blood Transfusions Hx Blood Disorders: No Adverse Reaction to a Blood Tr: No Family Medical History Significant Family History: Cancer Family Hx: Cancer 03 MOTHER (breast ca) (breast--grandma of breast cancer) Constitutional: weakness EENTM: no symptoms reported Respiratory: no symptoms reported Cardiovascular: no symptoms reported Gastrointestinal: no symptoms reported Genitourinary: other (Suprapubic catheter clogged up) Physical Exam Vital Signs Vital Sign - Last 12Hours Capillary Refill : Less Than 3 Seconds General Appearance: No Apparent Distress, WD/WN Eyes: Bilateral Eye Normal Inspection HEENT: Normal ENT Inspection Neck: Full Range of Motion, Normal Inspection Respiratory: Chest Non Tender, Lungs Clear, Normal Breath Sounds, No Accessory Muscle Use, No Respiratory Distress Cardiovascular: Regular Rate, Rhythm, No Murmur Gastrointestinal: Other (Colostomy) Assessment/Plan Assessment and Plan UTI. Labial mass. Multiple sclerosis. Sacral ulcer. Bedbound. Suprapubic. Problems: YAAKOV CORLEY DO Jan 02, 2017 12:40
[2017-01-02] MEDS ORDERED: PANT40TA3 PO (13:19)
[2017-01-02] MEDS ORDERED: ONDANSETRON 4 MG/2 ML (SDV) Z0FRAN IV PRN (13:30)
[2017-01-02] MEDS ORDERED: CATHETER FLUSH 10 ML SYR IV PRN (13:30)
[2017-01-02] MEDS ORDERED: ACETAMINOPHEN 500 MG TAB (TYLENOL) PO PRN (13:30)
[2017-01-02] MEDS ORDERED: MICO45PO TOP (13:50)
[2017-01-02] MEDS ORDERED: MENT71OI TP (13:50)
[2017-01-02] MEDS: NS IV 1000 ML 1,000 ML IV SCH (14:38)
[2017-01-02 16:00] VITALS: BP 132/90
[2017-01-02 19:33] VITALS: BP 115/71
[2017-01-02] MEDS: AMITRIPTYLINE 50 MG (ELAVIL) TAB PO SCH (22:36)
[2017-01-02] MEDS: BACLOFEN 10 MG (LIORESAL) TAB PO SCH (22:36)
[2017-01-03] VITALS: BP 119/69
[2017-01-03] MEDS: NS IV 1000 ML 1,000 ML IV SCH ×3 (00:57→22:01)
[2017-01-03 04:25] VITALS: BP 116/70
[2017-01-03 06:13] LABS: BASOPHILS % (AUTO) 1 % (0-10); EOSINOPHILS # (AUTO) 0.3 10^3/uL (0.0-0.3); EOSINOPHILS % (AUTO) 5 % (0-10); LYMPHOCYTES # (AUTO) 1.9 X 10^3 (1.0-4.0); LYMPHOCYTES % (AUTO) 34 % (12-44); MEAN CORPUSCULAR HEMOGLOBIN 23 PG (25-34); MEAN CORPUSCULAR HGB CONC 30 G/DL (32-36); MEAN CORPUSCULAR VOLUME 76 FL (80-99); MEAN PLATELET VOLUME 10.2 FL (7.4-10.4); MONOCYTES # (AUTO) 0.4 X 10^3 (0.0-1.0); MONOCYTES % (AUTO) 7 % (0-12); NEUTROPHILS # (AUTO) 3.1 X 10^3 (1.8-7.8); NEUTROPHILS % (AUTO) 54 % (42-75); PLATELET COUNT 365 10^3/uL (130-400); RED BLOOD COUNT 4.35 10^6/uL (4.35-5.85); RED CELL DISTRIBUTION WIDTH 19.7 % (10.0-14.5); WHITE BLOOD COUNT 5.7 10^3/uL (4.3-11.0)
[2017-01-03 06:29] LABS: ALANINE AMINOTRANSFERASE 17 U/L (0-55); ALBUMIN 3.3 GM/DL (3.2-4.5); ANION GAP 13 MMOL/L (5-14); ASPARTATE AMINO TRANSFERASE 14 U/L (5-34); BILIRUBIN,TOTAL 0.4 MG/DL (0.1-1.0); BLOOD UREA NITROGEN 12 MG/DL (7-18); BUN/CREATININE RATIO 19; CALCIUM 8.3 MG/DL (8.5-10.1); CARBON DIOXIDE 19 MMOL/L (21-32); CHLORIDE 106 MMOL/L (98-107); CREATININE SERUM 0.62 MG/DL (0.60-1.30); GFR ESTIMATED > 60; GLUCOSE 99 MG/DL (70-105); POTASSIUM 3.6 MMOL/L (3.6-5.0); SODIUM 138 MMOL/L (135-145); TOTAL PROTEIN 6.2 GM/DL (6.4-8.2)
[2017-01-03] MEDS ORDERED: MENTHOL/ZINC OXIDE (CALMOSEPTINE) 113 GM TUBE TP PRN (07:45)
[2017-01-03] MEDS ORDERED: VANCOMYCIN INJECTION 0.1 MG in NS (IVPB) 250 ML IV SCH (07:45)
[2017-01-03] MEDS ORDERED: BUP/EPI 0.25% 1:200,000 (MARCAINE) 30 ML VIAL INJ STA (08:00)
--- NOTE | 2017-01-03 08:04 | Progress Note (SOAP) ---
Subjective Subjective Date Seen by Provider: Jan 03, 2017 Time Seen by Provider: 08:45 46 yo female with history of multiple sclerosis and recurrent UTIs in part to indwelling suprapubic catheter. Pt has history of UTIs- most recently October 17, 2016- urine culture grew klebsiella, MRSA, Entercoccus faecalis, Proteus, Serratia. Pt is currently on rocephin. No fevers. Reported home health nurse noticed a labial mass/necrosis. Pt also complaining of darker urine and suspecting a UTI. Pt is unaware of a UTI- She denies any signs of illness- does note darker urine and decreased urination. Pt wants to go home as she is unsure why she is still here- she thought she was getting her left labial necrosis evaluated and go back home. Review of Systems General: No Chills, No Night Sweats HEENT: No Head Aches, No Visual Changes Pulmonary: No Dyspnea, No Cough Cardiovascular: No: Chest Pain, Palpitations Gastrointestinal: No: Abdominal Pain, Nausea, Vomiting Genitourinary: No Dysuria, No Frequency Musculoskeletal: arm pain, back pain, leg pain, neck pain, other (all chronic) , shoulder pain Neurological: Weakness (chronic) Objective Exam Vital Signs Vital Signs Date Time Temp Pulse Resp B/P (MAP) Pulse Ox O2 Delivery O2 Flow Rate FiO2 01/03/17 04:25 98.9 102 17 116/70 93 Room Air 01/03/17 00:00 97.6 107 18 119/69 92 Room Air 01/02/17 19:33 98.3 93 20 115/71 99 Room Air 01/02/17 16:00 98.0 99 20 132/90 100 Room Air 01/02/17 12:30 Room Air 01/02/17 12:02 97.4 86 14 122/63 96 Room Air 01/02/17 12:02 97.8 86 14 96 Room Air 01/02/17 09:20 98 Room Air 01/02/17 09:20 97.0 86 16 115/82 98 Room Air I & O 01/03/17 07:00 Intake Total 3250 ml Output Total 900 ml Balance 2350 ml General Appearance: No Apparent Distress, WD/WN Eyes: Bilateral Eye Normal Inspection HEENT: Normal ENT Inspection Neck: Full Range of Motion, Normal Inspection Respiratory: Chest Non Tender, Lungs Clear, Normal Breath Sounds, No Accessory Muscle Use, No Respiratory Distress Cardiovascular: Regular Rate, Rhythm, No Murmur Gastrointestinal: Normal Bowel Sounds, Non Tender, Soft, Other (Colostomy) Rectal: Deferred Genital/Rectal: Other (catheter) Neurologic/Psychiatric: Alert, Oriented x3, No Motor/Sensory Deficits Skin: Warm/Dry Results Lab Laboratory Tests 01/02/17 09:30: White Blood Count 5.4, Red Blood Count 4.59, Hemoglobin 10.4L, Hematocrit 35, Mean Corpuscular Volume 76L, Mean Corpuscular Hemoglobin 23L, Mean Corpuscular Hemoglobin Concent 30L, Red Cell Distribution Width 19.9H, Platelet Count 400, Mean Platelet Volume 10.1, Neutrophils (%) (Auto) 65, Lymphocytes (%) (Auto) 25 , Monocytes (%) (Auto) 5, Eosinophils (%) (Auto) 5, Basophils (%) (Auto) 1, Neutrophils # (Auto) 3.5, Lymphocytes # (Auto) 1.3, Monocytes # (Auto) 0.3, Eosinophils # (Auto) 0.3, Basophils # (Auto) 0.1, Prothrombin Time 12.9, INR Comment 1.0, Activated Partial Thromboplast Time 29, Urine Color YELLOW, Urine Clarity VERY CLOUDYH, Urine pH 7, Urine Specific [place] 1.015L, Urine Protein 2 +H, Urine Glucose (UA) NEGATIVE, Urine Ketones NEGATIVE, Urine Nitrite POSITIVEH , Urine Bilirubin NEGATIVE, Urine Urobilinogen NORMAL, Urine Leukocyte Esterase 3+H, Urine RBC (Auto) 4+H, Urine RBC 2-5H, Urine WBC >100H, Urine Squamous Epithelial Cells 2-5, Urine Crystals PRESENTH, Urine Calcium Oxalate Crystals RAREH, Urine Bacteria MODERATEH, Urine Casts NONE, Urine Mucus NEGATIVE, Urine Culture Indicated YES, Sodium Level 139, Potassium Level 4.1, Chloride Level 106 , Carbon Dioxide Level 28, Anion Gap 5, Blood Urea Nitrogen 12, Creatinine 0.67 , Estimat Glomerular Filtration Rate > 60, BUN/Creatinine Ratio 18, Glucose Level 114H, Lactic Acid Level 1.94, Calcium Level 8.6, Magnesium Level 1.8, Total Bilirubin 0.3, Aspartate Amino Transf (AST/SGOT) 15, Alanine Aminotransferase (ALT/SGPT) 19, Alkaline Phosphatase 81, Total Protein 6.6, Albumin 3.4 01/02/17 13:33: Lactic Acid Level 1.29 01/03/17 05:35: White Blood Count 5.7, Red Blood Count 4.35, Hemoglobin 9.8L, Hematocrit 33L, Mean Corpuscular Volume 76L, Mean Corpuscular Hemoglobin 23L, Mean Corpuscular Hemoglobin Concent 30L, Red Cell Distribution Width 19.7H, Platelet Count 365, Mean Platelet Volume 10.2, Neutrophils (%) (Auto) 54, Lymphocytes (%) (Auto) 34 , Monocytes (%) (Auto) 7, Eosinophils (%) (Auto) 5, Basophils (%) (Auto) 1, Neutrophils # (Auto) 3.1, Lymphocytes # (Auto) 1.9, Monocytes # (Auto) 0.4, Eosinophils # (Auto) 0.3, Basophils # (Auto) 0.0, Sodium Level 138, Potassium Level 3.6, Chloride Level 106, Carbon Dioxide Level 19L, Anion Gap 13, Blood Urea Nitrogen 12, Creatinine 0.62, Estimat Glomerular Filtration Rate > 60, BUN/ Creatinine Ratio 19, Glucose Level 99, Calcium Level 8.3L, Total Bilirubin 0.4, Aspartate Amino Transf (AST/SGOT) 14, Alanine Aminotransferase (ALT/SGPT) 17, Alkaline Phosphatase 78, Total Protein 6.2L, Albumin 3.3 Microbiology 01/02/17 Urine Culture - Preliminary, Resulted Gram Negative Alexander Gram Negative Alexander#2 Probable Staph Aureus 01/02/17 Gram Stain, Resulted Pending 01/02/17 Wound Culture - Preliminary, Resulted Enterococcus Species Gram Negative Alexander Gram Negative Alexander#2 See Comments Assessment/Plan Assessment/Plan Assessment/Plan 46 yo F *Recurrent urinary tract infection with indwelling catheter-- most recent urine culture October 17, 2016- urine culture grew klebsiella, MRSA, Entercoccus faecalis , Proteus, Serratia. -continue rocephin, will add vancomycin to cover both MRSA and enterococcus. *labial mass/necrosis- automation test engineer consulted- Dr. King excised the lesion and sent for pathology. *multiple sclerosis- continue baclofen *Fe deficiency anemia- at baseline hgb 9.8- monitor. *HTN- continue home meds *h/o asthma- not an issue currently *depression- continue home meds Dispo: Dr. King consulted for automation test engineer. Pt to follow up with Dr. Dersa outpatient ; will need to look for pathology results. Discussed with pt that she wants to be discharged because she feels normal. I do not find her to be septic as initially reported. Shared decision making to monitor cultures and pt overnight- and plan to discharge to home tomorrow - likely will need 3 antibiotics to cover her multiorganism UTI. Problems: Clinical Quality Measures DVT/VTE Risk/Contraindication: Risk Factor Score Per Nursin RFS Level Per Nursing on Admit: 4+=Very High LOLLY GOMEZ MD Jan 03, 2017 8:04 am
[2017-01-03 08:30] VITALS: BP 132/84
[2017-01-03] MEDS ORDERED: VANCOMYCIN 2000 MG/NS 500 ML IVPB IV NR ×2 (08:30)
--- NOTE | 2017-01-03 08:39 | Consultation ---
History of Present Illness History of Present Illness Patient Consulted On(donald/time) 01/03/17 08:33 Date Seen by Provider: Jan 03, 2017 Time Seen by Provider: 08:15 Reason for Visit: UTI with suprapubic catheter History of Present Illness This 46-year-old female is admitted to the hospital due to decreased urine output dark-colored urine from her suprapubic catheter and suspicion for renal insufficiency. The patient was also found to have urinary tract infection on admission. I was contacted due to this protrusion from the left labia that has been bothering the patient and been very painful for the past 4-5 days. She reports noting it for the past 2-3 weeks but has yet to make a point minute with her business planner Dr. Deras therefore I was consult did to come and evaluate Allergies and Home Medications Allergies Coded Allergies: interferon beta (Verified Allergy, Unknown, 07/25/08) naproxen (Verified Allergy, Unknown, 07/25/08) Home Medications Amitriptyline HCl 50 Mg Tablet, 50 MG PO HS, (Reported) Baclofen 20 Mg Tablet, 20 MG PO QID, (Reported) Menthol/Lanolin/Calamine/Znox 71 Gm Oint, TP PRN PRN for WOUND, (Reported) Metoprolol Tartrate 50 Mg Tablet, 50 MG PO DAILY, (Reported) Miconazole Nitrate 43 Gm Powder, TOP DAILY, (Reported) Montelukast Sodium 10 Mg Tablet, 10 MG PO DAILY, (Reported) Pantoprazole Sodium 40 Mg Tablet.dr, 40 MG PO DAILY, (Reported) Sennosides/Docusate Sodium 1 Each Tablet, 1 TAB PO DAILY, (Reported) Venlafaxine HCl 150 Mg Cap.er.24h, 150 MG PO DAILY, (Reported) Past Ufrdfeb-Aqiaeg-Jrdyhx Hx Patient Social History Alcohol Use: Denies Use Recreational Drug Use: No Smoking Status: Former Smoker Type Used: Cigarettes 2nd Hand Smoke Exposure: Yes Recent Foreign Travel: No Contact w/Someone Who Travel: No Recent Infectious Disease Expo: No Recent Hopitalizations: No Physical Abuse Screen: No Sexual Abuse: No Immunizations Up To Date Tetanus Booster (TDap): Less than 5yrs Date of Pneumonia Vaccine: Jun 08, 2015 Date of Influenza Vaccine: Mar 08, 2013 Seasonal Allergies Seasonal Allergies: Yes (hay fever) Surgeries HX Surgeries: Yes (teeth, suprapubic cath, COLOSTOMY) Respiratory Hx Respiratory Disorders: Yes Respiratory Disorders: Asthma Cardiovascular Hx Cardiac Disorders: Yes Cardiac Disorders: Hypertension Neurological Hx Neurological Disorders: Yes (secondary progressive) Neurological Disorders: Multiple Sclerosis Reproductive System : No Hx Reproductive Disorders: No Sexually Transmitted Disease: No HIV/AIDS: No Female Reproductive Disorders: Denies Genitourinary Hx Genitourinary Disorders: Yes (suprapubic cathether) Genitourinary Disorders: Bladder Infection Gastrointestinal Hx Gastrointestinal Disorders: Yes (COLOSTOMY) Musculoskeletal Hx Musculoskeletal Disorders: Yes (DECREASED MOVEMENT DUE TO MS) Endocrine Hx Endocrine Disorders: No HEENT HX ENT Disorders: Yes (GLASSES) Hearing Impairment: Denies Cancer Hx Cancer: No Psychosocial Hx Psychiatric Problems: Yes Behavioral Health Disorders: Depression Integumentary HX Skin/Integumentary Disorder: No Blood Transfusions Hx Blood Disorders: No Adverse Reaction to a Blood Tr: No Family Medical History Significant Family History: Cancer Family Medial History: Cancer 03 MOTHER (breast ca) (breast--grandma of breast cancer) Review of Systems-General All Other Systems Reviewed Negative Unless Noted: Yes Physical Exam-General Problems Physical Exam Vital Signs Vital Sign - Last 12Hours Capillary Refill : Less Than 3 Seconds General Appearance: WD/WN, mild distress HEENT: PERRL/EOMI Genital/Rectal: other (on the anterior left labia there is a beefy red protrusion approximately 2-3 cm, it appears necrotic and may be a labial polypoid structure or carcinoma.) Comments The labia itself is cleaned. The base of the necrotic structure due to pain is requested to be removed by the patient. I discussed the patient risk of bleeding and infection in this area she agreed to proceed. The base of the structure is infiltrated using quarter percent Marcaine with epinephrine. I then amputated the structure using a knife and send it to pathology as left labial lesion. The area is made hemostatic using silver nitrate. And gauzes left in place to keep pressure on the wound which is not actively bleeding. Estimated blood loss 5 mL. 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 I will be available if there is any complications surrounding the wound or further concerns otherwise signing off to the patient to follow-up outpatient Clinical Quality Measures DVT/VTE Risk/Contraindication: VTE Present on Admission: No Risk Factor Score Per Nursin RFS Level Per Nursing on Admit: 3=High MINESH BROWN DO Jan 03, 2017 8:39 am
[2017-01-03] MEDS: VENlafaxine XR 75 MG (EFFEXOR XR) CAP PO SCH (10:14)
[2017-01-03] MEDS: MONTELUKAST 10 MG (SINGULAIR) TAB PO SCH (10:14)
[2017-01-03] MEDS: PANTOPRAZOLE 40 MG (PROTONIX) TAB PO SCH (10:14)
[2017-01-03] MEDS: meTOprolol TARTRATE 50 MG (LOPRESSOR) TAB PO SCH (10:15)
[2017-01-03] MEDS: SENNA W/DOCUSATE (SENOKOT S) TABLET PO SCH (10:15)
[2017-01-03] MEDS: BACLOFEN 10 MG (LIORESAL) TAB PO SCH ×4 (10:15→22:01)
[2017-01-03] MEDS: MICONAZOLE 2% POWDER (DESENEX AF) 90 GM TOP SCH (10:16)
[2017-01-03] MEDS: cefTRIAXone INJECTION 1,000 MG in NS (IVPB) 50 ML IV SCH (10:16)
[2017-01-03 12:00] VITALS: BP 120/78
[2017-01-03] MEDS: VANCOMYCIN 1250 MG/NS 250 ML IVPB IV SCH ×4 (15:00→22:02)
[2017-01-03 16:00] VITALS: BP 120/78
[2017-01-03 19:36] VITALS: BP 123/88
[2017-01-03] MEDS: AMITRIPTYLINE 50 MG (ELAVIL) TAB PO SCH (22:01)
[2017-01-04 00:36] VITALS: BP 112/64
[2017-01-04] MEDS: NS IV 1000 ML 1,000 ML IV SCH (05:11)
[2017-01-04] MEDS: VANCOMYCIN 1250 MG/NS 250 ML IVPB IV SCH ×2 (05:11)
[2017-01-04 08:49] VITALS: BP 125/79
[2017-01-04] MEDS: meTOprolol TARTRATE 50 MG (LOPRESSOR) TAB PO SCH (09:01)
[2017-01-04] MEDS: VENlafaxine XR 75 MG (EFFEXOR XR) CAP PO SCH (09:01)
[2017-01-04] MEDS: MONTELUKAST 10 MG (SINGULAIR) TAB PO SCH (09:01)
[2017-01-04] MEDS: SENNA W/DOCUSATE (SENOKOT S) TABLET PO SCH (09:01)
[2017-01-04] MEDS: PANTOPRAZOLE 40 MG (PROTONIX) TAB PO SCH (09:01)
[2017-01-04] MEDS: BACLOFEN 10 MG (LIORESAL) TAB PO SCH (09:02)
[2017-01-04] MEDS: MICONAZOLE 2% POWDER (DESENEX AF) 90 GM TOP SCH (09:03)
[2017-01-04] MEDS: cefTRIAXone INJECTION 1,000 MG in NS (IVPB) 50 ML IV SCH (09:05)
--- NOTE | 2017-01-04 09:25 | Progress Note (SOAP) ---
Subjective Subjective Date Seen by Provider: Jan 04, 2017 Time Seen by Provider: 09:18 46 yo female with history of multiple sclerosis and recurrent UTIs in part to indwelling suprapubic catheter. Pt doing well today- wanting to go home as she feels like she is back to baseline- No overnight issues. Denies fevers Review of Systems General: No Chills, No Night Sweats HEENT: No Head Aches, No Visual Changes Pulmonary: No Dyspnea, No Cough Cardiovascular: No: Chest Pain, Palpitations Gastrointestinal: No: Abdominal Pain, Nausea, Vomiting Genitourinary: No Dysuria, No Frequency Musculoskeletal: arm pain, back pain, leg pain, neck pain, other (all chronic) , shoulder pain Neurological: Weakness (chronic) All Other Systems Reviewed All Other Systems Reviewed: Yes Objective Exam Vital Signs Vital Signs Date Time Temp Pulse Resp B/P (MAP) Pulse Ox O2 Delivery O2 Flow Rate FiO2 01/04/17 08:49 97.7 105 20 125/79 95 Room Air 01/04/17 00:36 98.9 72 18 112/64 97 Room Air 01/03/17 19:36 99.3 104 22 123/88 99 Room Air 01/03/17 16:00 99.1 103 22 120/78 98 Room Air 01/03/17 12:00 98.1 107 22 120/78 96 Room Air I & O 01/04/17 07:00 Intake Total 2322.5 ml Output Total 850 ml Balance 1472.5 ml General Appearance: No Apparent Distress, WD/WN Eyes: Bilateral Eye Normal Inspection HEENT: Normal ENT Inspection Neck: Full Range of Motion, Normal Inspection Respiratory: Chest Non Tender, Lungs Clear, Normal Breath Sounds, No Accessory Muscle Use, No Respiratory Distress Cardiovascular: Regular Rate, Rhythm, No Murmur Gastrointestinal: Normal Bowel Sounds, Non Tender, Soft, Other (Colostomy) Rectal: Deferred Genital/Rectal: Other (catheter) Neurologic/Psychiatric: Alert, Oriented x3, No Motor/Sensory Deficits Skin: Warm/Dry Results Lab Microbiology 01/02/17 Blood Culture - Preliminary, Resulted No growth 01/02/17 Urine Culture - Final, Complete Staphylococcus Aureus Raoultella Ornithinolytica Klebsiella Pneumoniae 01/02/17 Gram Stain - Final, Resulted 01/02/17 Wound Culture - Preliminary, Resulted Enterococcus Faecalis Klebsiella Pneumoniae Enterobacter Cloacae Assessment/Plan Assessment/Plan Assessment/Plan 46 yo F *Recurrent urinary tract infection with indwelling catheter-- most recent urine culture October 17, 2016- urine culture grew klebsiella, MRSA, Entercoccus faecalis , Proteus, Serratia. -on rocephin and vancomycin -STAPHYLOCOCCUS AUREUS (MRSA) RAOULTELLA ORNITHINOLYTICA KLEBSIELLA PNEUMONIAE -will switch to cefdinir and doxycycline. *labial mass/necrosis- car pilot consulted- Dr. King excised the lesion and sent for pathology. culture growing bacteria- lesion was surgical removed- monitor lesion- I do not think it needs antibiotic treatment- pt in agreeance. *multiple sclerosis- continue baclofen *Fe deficiency anemia- at baseline hgb 9.8- monitor. *HTN- continue home meds *h/o asthma- not an issue currently *depression- continue home meds Dispo: follow pathology results. Discharge to home on cefdinir and doxycycline. Problems: Clinical Quality Measures DVT/VTE Risk/Contraindication: VTE Present on Admission: No Risk Factor Score Per Nursin RFS Level Per Nursing on Admit: 3=High LOLLY GOMEZ MD Jan 04, 2017 09:25
[2017-01-04] MEDS ORDERED: DOXY100T2 PO (09:34)
[2017-01-04] MEDS ORDERED: CEFD300C3 PO (09:34)
--- NOTE | 2017-01-04 09:38 | Discharge Inst-Simple/Standard ---
Discharge Inst-Standard Discharge Medications New, Converted or Re-Newed RX: Transmitted to Pharmacy Patient Instructions/Follow Up Plan of Care/Instructions/FU: start doxycyline and cefdinir 01/05/17 as you has IV antibiotics that will cover you on day of discharge monitor urine output follow up with Dr. Crooks in 1week Follow up with Dr. Deras office regards your pathology results for the labial lesion Activity as Tolerated: Yes Discharge Diet: Eat Small Frequent Meals Return to The Hospital For: fever no urine output new concerns LOLLY GOMEZ MD Jan 04, 2017 09:37
--- NOTE | 2017-01-04 09:54 | Discharge Summary ---
Diagnosis/Chief Complaint Date of Admission Jan 02, 2017 at 10:55 Date of Discharge 01/04/2017 Admission Diagnosis Admission Diagnosis UTI. Labial mass. Multiple sclerosis. Sacral ulcer. Bedbound. Suprapubic. Discharge Diagnosis *Recurrent urinary tract infection with indwelling catheter-- *labial mass/necrosis *multiple sclerosis- *Fe deficiency anemia- *HTN- *h/o asthma- *depression- Reason Hospital Visit 46 yo F with decreased urine output and darkened urine. Pt found to have a UTI and a labile lesion that was necrotic. Discharge Summary Hospital Course Hospital Course 46 yo F admitted for Recurrent urinary tract infection with indwelling catheter- - most recent urine culture October 17, 2016- urine culture grew klebsiella, MRSA, Entercoccus faecalis, Proteus, Serratia. -on rocephin and vancomycin, on discharge switched to cefdinir and doxycycline. As for her labial mass with necrosis- escrow assistant consulted- Dr. King excised the lesion and sent for pathology. culture growing bacteria- lesion was surgical removed- monitor lesion-Does not need antibiotic treatment- pt in agreeance. *multiple sclerosis- continue baclofen *Fe deficiency anemia- at baseline hgb *HTN- no issue with blood pressure during this admission. *h/o asthma- not an issue currently *depression- continue home meds Dispo: follow pathology results. Discharge to home on cefdinir and doxycycline. Follow up with Dr. Crooks in 1 week. Labs Laboratory Tests 01/02/17 09:30: Hemoglobin 10.4L, Mean Corpuscular Volume 76L, Mean Corpuscular Hemoglobin 23L, Mean Corpuscular Hemoglobin Concent 30L, Red Cell Distribution Width 19.9H, Urine Clarity VERY CLOUDYH, Urine Specific [place] 1.015L, Urine Protein 2+H, Urine Nitrite POSITIVEH, Urine Leukocyte Esterase 3+H, Urine RBC (Auto) 4+H, Urine RBC 2-5H, Urine WBC >100H, Urine Crystals PRESENTH, Urine Calcium Oxalate Crystals RAREH, Urine Bacteria MODERATEH, Glucose Level 114H 01/02/17 13:33: 01/03/17 05:35: Hemoglobin 9.8L, Mean Corpuscular Volume 76L, Mean Corpuscular Hemoglobin 23L, Mean Corpuscular Hemoglobin Concent 30L, Red Cell Distribution Width 19.7H, Hematocrit 33L, Carbon Dioxide Level 19L, Calcium Level 8.3L, Total Protein 6.2L Procedures None. Consultations Dr. King Discharge Physical Examination Allergies: Coded Allergies: interferon beta (Verified Allergy, Unknown, 07/25/08) naproxen (Verified Allergy, Unknown, 07/25/08) Vitals & I&Os Vital Signs Date Time Temp Pulse Resp B/P (MAP) Pulse Ox O2 Delivery O2 Flow Rate FiO2 01/04/17 08:49 97.7 105 20 125/79 95 Room Air General Appearance: Alert, Oriented X3, Cooperative HEENT: Atraumatic Respiratory: Clear to Auscultation Cardiovascular: Regular Rate Abdominal: Normal Bowel Sounds, Soft Psych/Mental Status: Mental Status NL Discharge Home Medications Reviewed and agree with Discharge Medication list on patient's Discharge Instruction sheet Condition at Discharge stable Instructions to Patient/Family Please see electronic discharge instructions given to patient. Clinical Quality Measures DVT/VTE Risk/Contraindication: VTE Present on Admission: No Risk Factor Score Per Nursin RFS Level Per Nursing on Admit: 3=High LOLLY GOMEZ MD Jan 04, 2017 09:54
[2017-01-04 10:15] VITALS: BP 126/78
[2017-01-04] MEDS ORDERED: TROUGH ORDER-PHARMACY XX NR (13:00)
--- NOTE | 2017-01-05 01:37 | CONSULTATION REPORT ---
DATE OF CONSULTATION: 01/02/2017 ATTENDING PHYSICIAN: Dr. Crooks. SUMMARY: This is a 46-year-old morbidly obese patient that I have seen before, who had previous suprapubic tube by Dr. Turcios a long time ago, comes on and off with some problem, either infection of gross hematuria, not very compliant, also on not having easy transportation. She presented to the emergency room with some infection, possible sepsis. The suprapubic tube has been changed regularly having no problems. It is draining well and the urine is really yellow and clear. IMPRESSION: UTI. PLAN: I agree with admission for some antibiotic, maybe overnight or according to her response. We will see her p.r.n. Job ID: [id number] Dictated Date: 01/02/2017 11:56:40 Application Services Manager Date: 01/05/2017 01:28:33/katrina
== END 2017-01-04 10:15 | disposition home or self-care (01) | DRG 988 ==
LOC: EDUNIT# 09:00 → ER 09:03 → 4TH 10:55
PROVIDERS: ADMIT Family Medicine; ATTEND Family Medicine
PROC: 0UBMXZX Excision of Vulva, External Approach, Diagnostic (ICD-10-PCS; principal; 2017-01-03)
DX: T83.511A Infection and inflammatory reaction due to indwelling urethral catheter, initial encounter (principal); N39.0 Urinary tract infection, site not specified; N90.9 Noninflammatory disorder of vulva and perineum, unspecified; G35 Multiple sclerosis; I10 Essential (primary) hypertension; F32.9 Major depressive disorder, single episode, unspecified; E66.01 Morbid (severe) obesity due to excess calories; Z68.41 Body mass index [BMI] 40.0-44.9, adult; Z66 Do not resuscitate; L89.159 Pressure ulcer of sacral region, unspecified stage; D50.9 Iron deficiency anemia, unspecified; J45.909 Unspecified asthma, uncomplicated; Z74.01 Bed confinement status; Z93.3 Colostomy status
CPT/HCPCS: 36415; 71010; 80053; 81000; 83605; 83735; 85025; 85610; 85730; 87040; 87070; 87077; 87088; 87186; 87205; 88305; 96365

== ENCOUNTER 2017-10-26 10:18 | Emergency (ER) | payer OTHER, MEDICARE, MEDICAID ==
[~2017-10-26] VITALS: Ht 175.3 cm; Wt 113.4 kg
[~2017-10-26 10:18] MED LIST changes: +CEFD300C3 PO; +DOXY100T2 PO; +METO50TA15 PO; -METO50TA2 PO; +MICO45PO TOP
--- NOTE | 2017-10-26 10:31 | ED GU-Female ---
General Stated Complaint: RLQ PAIN/CATH NEEDS REPLACED Source: patient, caregiver (home health nurse) Exam Limitations: no limitations History of Present Illness Date Seen by Provider: October 26, 2017 Time Seen by Provider: 10:16 Initial Comments Patient presents to the ER by EMS with a chief complaint that she was at home with her home health nurse and they're going to do a suprapubic catheter changed because of the suprapubic catheter not draining after flushing. Unfortunately the home health nurse was unable to get the suprapubic catheter to come out despite pulling on it. She says it's not erythematous in the urine does not smell many different. The patient denies any recent fevers chills nausea vomiting or pain. She was having a little right lower quadrant pain. She also noticed a little bit of mucus in the colostomy and the home health nurse thought that was unusual. Patient says she has not been on antibiotics recently. She is eating and drinking normally. Allergies and Home Medications Allergies Coded Allergies: interferon beta (Verified Allergy, Unknown, 07/25/08) naproxen (Verified Allergy, Unknown, 07/25/08) Home Medications Amitriptyline HCl 50 Mg Tablet, 50 MG PO HS, (Reported) Baclofen 20 Mg Tablet, 20 MG PO QID, (Reported) Cefdinir 300 Mg Capsule, 300 MG PO BID Prescribed by: LOLLY GOMEZ on 01/04/17933 Doxycycline Hyclate 100 Mg Tablet, 100 MG PO BID Prescribed by: LOLLY GOMEZ on 01/04/1734 Menthol/Lanolin/Calamine/Znox 71 Gm Oint, TP PRN PRN for WOUND, (Reported) Metoprolol Tartrate 50 Mg Tablet, 50 MG PO DAILY, (Reported) Miconazole Nitrate 43 Gm Powder, TOP DAILY, (Reported) Montelukast Sodium 10 Mg Tablet, 10 MG PO DAILY, (Reported) Pantoprazole Sodium 40 Mg Tablet.dr, 40 MG PO DAILY, (Reported) Sennosides/Docusate Sodium 1 Each Tablet, 1 TAB PO DAILY, (Reported) Venlafaxine HCl 150 Mg Cap.er.24h, 150 MG PO DAILY, (Reported) Patient Home Medication List Home Medication List Reviewed: Yes Review of Systems Constitutional: No chills, No diaphoresis EENTM: No hearing loss, No ear pain Respiratory: No cough, No phlegm, No short of breath Cardiovascular: No chest pain, No edema Gastrointestinal: abdominal pain (RLQ); No constipation, No diarrhea, No nausea , No vomiting Genitourinary: denies burning, denies discharge, denies dysuria, denies flank pain, denies hematuria, denies pain Musculoskeletal: No back pain, No joint pain Skin: No pruritus, No rash Psychiatric/Neurological: Denies Headache, Denies Numbness Past Iaoebwq-Ejhcne-Pyudaj Hx Patient Social History Alcohol Use: Occasionally Uses Alcohol Beverage of Choice: Wine Recreational Drug Use: No Smoking Status: Former Smoker Type Used: Cigarettes Former Smoker, Quit: Mar 08, 2015 2nd Hand Smoke Exposure: Yes Recent Hopitalizations: No Immunizations Up To Date Tetanus Booster (TDap): Less than 5yrs Date of Pneumonia Vaccine: Jun 08, 2015 Date of Influenza Vaccine: Mar 08, 2013 Seasonal Allergies Seasonal Allergies: Yes (hay fever) Past Medical History Surgeries: Yes (teeth, suprapubic cath, COLOSTOMY) Respiratory: Yes Asthma Currently Using CPAP: No Currently Using BIPAP: No Cardiac: Yes Hypertension Neurological: Yes (secondary progressive) Multiple Sclerosis Reproductive Disorders: No Female Reproductive Disorders: Denies Sexually Transmitted Disease: No HIV/AIDS: No Bladder Infection Gastrointestinal: Yes (COLOSTOMY) Musculoskeletal: Yes (DECREASED MOVEMENT DUE TO MS) Endocrine: No HEENT: No Hearing Impairment: Denies Cancer: No Psychosocial: Yes Depression Integumentary: No Blood Disorders: No Adverse Reaction/Blood Tranf: No Family Medical History Cancer 03 MOTHER (breast ca) (breast--grandma of breast cancer) Cancer Physical Exam Vital Signs Vital Signs - First Documented 10/26/17 10:29 Temp 96.6 Pulse 71 Resp 20 B/P (MAP) 129/92 (104) Pulse Ox 95 Capillary Refill : General Appearance: no apparent distress, obese, other (bedbound) HEENT: PERRL/EOMI, pharynx normal Cardiovascular: normal peripheral pulses, regular rate, rhythm, no edema Respiratory: no respiratory distress, no accessory muscle use Gastrointestinal: normal bowel sounds, non tender, soft; No distended, No guarding, No rebound; other (suprapubic catheter site is moist but not macerated with a little erythema and maybe some external os stenosis but catheter was withdrawn easily with modest pressure.) Neurologic/Psychiatric: alert, oriented x 3 Skin: normal color, warm/dry, damp (under pannus) Progress/Results/Core Measures Suspected Sepsis SIRS Temperature: Pulse: Respiratory Rate: Blood Pressure / Mean: Results/Orders Lab Results Laboratory Tests Test 10/26/17 11:15 Range/Units Urine Color YELLOW Urine Clarity CLEAR Urine pH 7 5-9 Urine Specific [place] 1.005 L 1.016-1.022 Urine Protein NEGATIVE NEGATIVE Urine Glucose (UA) NEGATIVE NEGATIVE Urine Ketones NEGATIVE NEGATIVE Urine Nitrite NEGATIVE NEGATIVE Urine Bilirubin NEGATIVE NEGATIVE Urine Urobilinogen NORMAL NORMAL MG/DL Urine Leukocyte Esterase 3+ H NEGATIVE Urine RBC (Auto) 5+ H NEGATIVE Urine RBC 0-2 /HPF Urine WBC 5-10 H /HPF Urine Squamous Epithelial Cells 2-5 /HPF Urine Crystals NONE /LPF Urine Bacteria MODERATE H /HPF Urine Casts NONE /LPF Urine Mucus NEGATIVE /LPF Urine Culture Indicated YES My Orders Orders - DIANE RAMIREZ Ua Culture If Indicated (10/26/17 10:25) Urine Culture (10/26/17 11:15) Vital Signs/I&O 10/26/17 10:29 Temp 96.6 Pulse 71 Resp 20 B/P (MAP) 129/92 (104) Pulse Ox 95 Capillary Refill : Progress Note : Time: 10:32 Progress Note We have a George catheter in place just holding the tract open until the home healthcare nurse gets up here with the suprapubic catheter that is a silicone- based specialty device and then we will replace it and let her go home. The urinalysis will probably show evidence of colonizer bacteria and we will not treat unless she's starts to have symptoms. Departure Impression Primary Impression: Blocked suprapubic catheter Qualified Codes: T83.090A - Other mechanical complication of cystostomy catheter, initial encounter Additional Impression: History of colostomy Disposition: HOME, SELF-CARE Condition: Improved Departure-Patient Inst. Decision time for Depature: 12:25 Referrals: EMELI CORLEY DO (PCP/Family) Primary Care Physician Patient Instructions: Ostomy Care, Adult Copy Copies To 1: EMELI CORLEY TITUS J October 26, 2017 10:31
[2017-10-26 11:34] LABS: BILIRUBIN,URINE NEGATIVE (NEGATIVE); CLARITY,URINE CLEAR; COLOR,URINE YELLOW; GLUCOSE, URINE (UA) NEGATIVE (NEGATIVE); KETONES,URINE NEGATIVE (NEGATIVE); LEUKOCYTE ESTERASE ,URINE 3+ (NEGATIVE); NITRITE,URINE NEGATIVE (NEGATIVE); PH,URINE 7 (5-9); PROTEIN,URINE NEGATIVE (NEGATIVE); UROBILINOGEN,URINE NORMAL (NORMAL)
[2017-10-26 11:50] LABS: BACTERIA,URINE MODERATE /HPF; RBC,URINE 0-2 /HPF
[2017-10-26 13:05] VITALS: BP 132/83
== END 2017-10-26 13:09 | disposition home or self-care (01) ==
LOC: EDUNIT# 10:18 → ER 10:20
DX: T83.090A Other mechanical complication of cystostomy catheter, initial encounter (principal); J45.909 Unspecified asthma, uncomplicated; I10 Essential (primary) hypertension; F32.9 Major depressive disorder, single episode, unspecified; G35 Multiple sclerosis; Z93.3 Colostomy status; Z87.448 Personal history of other diseases of urinary system; Z80.3 Family history of malignant neoplasm of breast; Z87.891 Personal history of nicotine dependence; Z88.8 Allergy status to other drugs, medicaments and biological substances
CPT/HCPCS: 81000; 87088; 87186